=== PATIENT | female | born 1950 | race Caucasian/White ===

== ENCOUNTER 2023-03-20 07:16 | Outpatient (OUT) | payer MEDICARE, SELFPAY ==
[2023-03-20 08:26] LABS: Chol HDL Ratio 3.1; Cholesterol 220 mg/dL (<=200); HDL Cholesterol 71 mg/dL (40-60); Triglycerides 69 mg/dL (<=150); VLDL CHOLESTEROL 13.8 mg/dL
== END 2023-03-20 07:17 | disposition home or self-care (01) ==
LOC: LAB 07:21
PROVIDERS: PCP Family Medicine
DX: Z00.00 Encounter for general adult medical examination without abnormal findings (principal); R53.83 Other fatigue; G47.9 Sleep disorder, unspecified
CPT/HCPCS: 36415; 80061; 82607

== ENCOUNTER 2024-05-25 20:22 | Observation (INO) | payer MEDICARE, SELFPAY ==
[2024-05-25] VITALS (9 sets, daily range): BP systolic 116–166; BP diastolic 63–90; PULSE 71–126; TEMP 36.6–36.7; O2SAT 93–95; BMI 24.0; BMI 25.3
--- NOTE | 2024-05-25 20:38 | ECG_ITS ---
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
--- NOTE | 2024-05-25 20:47 | XR_ITS ---
The [address] [address] Patient Name: ZE LLOYD MRN: [id number] date: 1950 Sex: F Assigned Patient Location: ER Current Patient Location: ER Accession/Order Number: [id number] Exam Date: 05/25/2024 20:55 Report Date: 05/25/2024 21:40 At the request of: YULIA STRANGE Procedure: XR chest 1V EXAM: XR chest 1V REASON FOR EXAM: Female, 73 years, tachycardia. TECHNIQUE: A single AP view of the chest is performed. COMPARISON: None. FINDINGS: Cardiac monitoring leads overlie the chest. There is minimal left basilar atelectasis. Normal pleura. Normal size heart. Normal mediastinum and char. Normal visualized pulmonary arteries. Normal visualized aortic arch and descending thoracic aorta. Normal visualized thoracic spine. Normal visualized ribs, clavicles, and shoulders. There is no demonstrated abnormality of the visualized soft tissue structures of the upper abdomen. XR/XR chest 1V IMPRESSION: Minimal left basilar atelectasis. No additional acute abnormality. Electronically authenticated by: PATRICE JAIME Date: 05/25/2024 21:40
--- NOTE | 2024-05-25 20:48 | ED_ITS ---
HPI - Arrhythmia/Palpitations General Chief Complaint: Arrhythmia/Palpitations Stated Complaint: Palpitation Time Seen by Provider: 05/25/24 20:34 Source: patient Mode of arrival: walk-in Limitations: no limitations History of Present Illness HPI narrative: hour onset of heart flutter in her chest. No chest pain, dyspnea, nausea or light headiness. Past history of HTN Related Data Home Medications ?Medication ?Instructions ?Recorded ?Confirmed aspirin 81 mg tablet,delayed 81 mg PO DAILY 05/25/24 05/25/24 release (Adult Low Dose Aspirin) carvedilol 6.25 mg tablet 6.25 mg PO Q12H 05/25/24 05/25/24 Allergies Allergy/AdvReac Type Severity Reaction Status Date / Time No Known Drug Allergies Allergy Verified 05/25/24 20:37 Review of Systems ROS Status of ROS 10 or more systems reviewed and unremark able except as noted in history and below [facility] Medical History (Updated 05/25/24 @ 22:08 by Jerrod Stoner MD) Osteoporosis ?M81.0 - Age-related osteoporosis without current pathological fracture (ICD- 10) Hypertension ?I10 - Essential (primary) hypertension (ICD-10) Exam Constitutional Vital Signs, click to edit/add: Last Vital Signs Temp 97.8 F 05/25/24 20:32 Pulse 85 05/25/24 21:45 Resp 17 05/25/24 21:45 BP 116/73 05/25/24 21:45 Pulse Ox 94 L 05/25/24 21:45 O2 Del Method Room Air 05/25/24 20:32 Common normals: no apparent distress, average body habitus, oriented x3, no limitations, healthy appearing, alert and well nourished [facility] Common normals: normocephalic and head/scalp atraumatic Eye Common normals: PERRL and EOMs intact bilaterally Respiratory Common normals: normal respiratory effort, no retractions, no use of accessory muscles and clear to auscultation bilaterally Cardio Common normals: S1 normal heart sound and S2 normal heart sound Rate: tachycardic Rhythm: abnormal rhythm GI Common normals: Normal to inspection, nondistended, normoactive bowel sounds present, soft to palpation and non-tender Extremity Common normals: normal to inspection and full ROM Neuro Common normals: oriented x3, CN's II-XII intact bilaterally and moves all extremities Psych Appearance: grossly normal Course Vital Signs Vital signs: Vital Signs Temperature 97.8 F 05/25/24 20:32 Pulse Rate 126 H 05/25/24 20:32 Respiratory Rate 16 05/25/24 20:32 Blood Pressure 166/88 H 05/25/24 20:32 Pulse Oximetry 95 05/25/24 20:32 Oxygen Delivery Method Room Air 05/25/24 20:32 Temperature 97.8 F 05/25/24 20:32 Pulse Rate 85 05/25/24 21:45 Respiratory Rate 17 05/25/24 21:45 Blood Pressure 116/73 05/25/24 21:45 Pulse Oximetry 94 L 05/25/24 21:45 Oxygen Delivery Method Room Air 05/25/24 20:32 MDM - Arrhythmia/Palpitations MDM Narrative Medical decision making narrative: patient presents with complaint of heart fluttering in her chest. started about an hour [facility]. no associated chest pain, nausea, dyspnea or light headiness. She feels ok except for he heart flutter. Has history of HTN. Heart rate 120s and irregular. Given 10mg bolus of diltiazem and heart rate decreased to mid 80s but remained irregular. she would correct to sinus with PAcs and then back to flutter/fib waves. D-dimer and troponin neg. Discussed with the hospitalist and patient accepted for obs admission Lab Data Labs: Lab Results 05/25/24 Range/Units 20:40 WBC 5.9 (4.0-11.0) 10^3/uL RBC 4.42 (4.20-5.40) 10^6/uL Hgb 13.9 (12.0-16.0) g/dL Hct 41.6 (36.0-48.0) % MCV 94.1 (81.0-99.0) fL MCH 31.4 (26.7-34.0) pg MCHC 33.4 (29.9-35.2) g/dL RDW 12.4 (11.0-15.0) % Plt Count 276 (150-450) 10^3/uL MPV 9.7 (9.5-13.5) fL Neut % (Auto) 46.7 (43.0-75.0) % Lymph % (Auto) 38.7 (20.5-60.0) % [place] % (Auto) 10.0 (1.7-12.0) % Eos % (Auto) 3.9 (0.9-7.0) % Baso % (Auto) 0.5 (0.2-2.0) % Neut # (Auto) 2.8 (1.4-6.5) 10^3/uL Lymph # (Auto) 2.3 (1.2-3.8) 10^3/uL [place] # (Auto) 0.6 (0.3-0.8) 10^3/uL Eos # (Auto) 0.2 (0.0-0.7) 10^3/uL Baso # (Auto) 0.0 (0.0-0.1) 10^3/uL Abs Immat Gran (auto) 0.01 (0.00-0.03) 10^3/uL Imm/Tot Granulo (auto) 0.2 (0.0-0.5) % D-Dimer 0.55 (<=0.59) mg/L FEU Sodium 142 (136-145) mmol/L Potassium 3.6 (3.5-5.1) mmol/L Chloride 107 (98-107) mmol/L Carbon Dioxide 25.0 (21.0-32.0) mmol/L Anion Gap 13.6 BUN 21.0 H (7.0-18.0) mg/dL Creatinine 0.88 (0.55-1.02) mg/dL Est GFR ( Amer) >60 (>=60 mL/min/1.73m^2) Est GFR (Non-Af Amer) >60 (>=60 mL/min/1.73m^2) BUN/Creatinine Ratio 23.9 Glucose 171 H (74-106) mg/dL Calcium 9.1 (8.5-10.1) mg/dL Troponin I High Sens 15.1 (4.0-51.3) pg/mL Discharge Plan Discharge Chief Complaint: Arrhythmia/Palpitations Clinical Impression: Atrial flutter, Atrial fibrillation Patient Disposition: Admitted as Observation Prescriptions / Home Meds: No Action carvedilol 6.25 mg tablet 6.25 mg PO Q12H aspirin [Adult Low Dose Aspirin] 81 mg tablet,delayed release (DR/EC) 81 mg PO DAILY Print Language: Tunisian Referrals: SAMMIE CARBAJAL [Primary Care Provider] - 1 week
[2024-05-25 20:51] LABS: Basophils Percent Auto 0.5 % (0.2-2.0); Eosinophils Absolute Auto 0.2 10^3/uL (0.0-0.7); Eosinophils Percent Auto 3.9 % (0.9-7.0); Hematocrit 41.6 % (36.0-48.0); Hemoglobin 13.9 g/dL (12.0-16.0); Immature Granulocytes Abs Auto 0.01 10^3/uL (0.00-0.03); Immature Granulocytes Pct Auto 0.2 % (0.0-0.5); Lymphocytes Absolute Auto 2.3 10^3/uL (1.2-3.8); Lymphocytes Percent Auto 38.7 % (20.5-60.0); Mean Corpuscular HGB Conc 33.4 g/dL (29.9-35.2); Mean Corpuscular Hemoglobin 31.4 pg (26.7-34.0); Mean Corpuscular Volume 94.1 fL (81.0-99.0); Mean Platelet Volume 9.7 fL (9.5-13.5); Monocytes Absolute Auto 0.6 10^3/uL (0.3-0.8); Neutrophils Absolute Auto 2.8 10^3/uL (1.4-6.5); Neutrophils Percent Auto 46.7 % (43.0-75.0); Platelet Count 276 10^3/uL (150-450); Red Blood Count 4.42 10^6/uL (4.20-5.40); Red Cell Distribution Width 12.4 % (11.0-15.0); White Blood Count 5.9 10^3/uL (4.0-11.0)
[2024-05-25 21:00] LABS: D Dimer 0.55 mg/L FEU (<=0.59)
[2024-05-25 21:05] LABS: Anion Gap 13.6; BUN Creatinine Ratio 23.9; Calcium 9.1 mg/dL (8.5-10.1); Chloride 107 mmol/L (98-107); Estimated GFR (African America >60 (>=60 mL/min/1.73m^2); Estimated GFR (Non-African Ame >60 (>=60 mL/min/1.73m^2); Glucose 171 mg/dL (74-106); Potassium 3.6 mmol/L (3.5-5.1); Sodium 142 mmol/L (136-145); Troponin I High Sensitivity 15.1 pg/mL (4.0-51.3)
[2024-05-25] MEDS: DILTIAZEM HCL 25 MG/5 ML VIAL 10 MG IV (21:13)
--- NOTE | 2024-05-25 21:23 | ECG_ITS ---
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
--- NOTE | 2024-05-25 21:27 | PC.NURSE ---
DR Stoner informed that i did not start drip for this patient because her heart rate below 100bm, and Dr Stoner said complete another 12 lead ekg
--- NOTE | 2024-05-25 23:00 | PC.NURSE ---
patient request to transported upstairs via wheelchair, this patient voices no complaints or needs and shows no signs of distress at time of transfer upstairs to room 202. this patient had 1 personal bag of her belonging but her will be back to bring her phone correctional counselor
[2024-05-25] MEDS: ENOXAPARIN SODIUM 40 MG/0.4 ML SYRINGE SUBQ (23:16)
[2024-05-25] MEDS: CARVEDILOL 6.25 MG TABLET PO (23:17)
[2024-05-26] VITALS (9 sets, daily range): BP systolic 116–126; BP diastolic 72–78; PULSE 58–79; TEMP 36.4–36.6; O2SAT 90–93
[2024-05-26 06:59] LABS: Hematocrit 39.5 % (36.0-48.0); Hemoglobin 12.8 g/dL (12.0-16.0); Mean Corpuscular HGB Conc 32.4 g/dL (29.9-35.2); Mean Corpuscular Hemoglobin 30.9 pg (26.7-34.0); Mean Corpuscular Volume 95.4 fL (81.0-99.0); Mean Platelet Volume 9.6 fL (9.5-13.5); Platelet Count 238 10^3/uL (150-450); Red Blood Count 4.14 10^6/uL (4.20-5.40); Red Cell Distribution Width 12.6 % (11.0-15.0); White Blood Count 4.1 10^3/uL (4.0-11.0)
--- NOTE | 2024-05-26 07:00 | CA_ITS ---
Patient Name: ZE LLOYD MR#: [id number] : 1950 Exam Date: 05/26/2024 Ordering Doctor: ALLAN BLANCHARD ECHOCARDIOGRAM REPORT PROCEDURE: CA ECHO DOPPLER COMPLETE INDICATIONS: New onset a-flutter COMPARISON: None. DESCRIPTION: COMPLETE ECHOCARDIOGRAM Real-time transthoracic echocardiography with 2D, M-mode, spectral and color flow Doppler performed. QUALITY: Technical quality was good. LEFT VENTRICLE: Normal chamber size. Mild concentric left ventricular hypertrophy. Global left ventricular systolic function is normal. LV EF: Visual estimation of left ventricular ejection fraction is 65%. DIASTOLIC: Diastolic function is indeterminate. ATRIAL SEPTUM: LEFT ATRIUM: Moderate dilatation. RIGHT ATRIUM: Normal chamber size. RIGHT VENTRICLE: Normal chamber size. Normal right ventricular systolic function. TRICUSPID VALVE: Normal mobility and thickness. No stenosis with trivial regurgitation. No evidence of pulmonary hypertension. RVSP 25 mmHg MITRAL VALVE: Normal mobility and thickness. No evidence of mitral valve stenosis. Mild mitral annular calcification. Mild mitral regurgitation. AORTIC VALVE: Normal trileaflet appearance. Thickened aortic valve. Normal leaflet mobility. No evidence of aortic valve stenosis. No aortic regurgitation. AORTIC ROOT: Normal diameter and appearance. PULMONIC VALVE: Normal thickness and mobility. No stenosis. Trivial regurgitation. PERICARDIUM: No evidence of pericardial effusion. IVC: Collapses with inspirations. Normal size. PLEURA: CONCLUSION: 1. Mild concentric ventricular hypertrophy. Normal left ventricular systolic function. LVEF is 65%. 2. Normal right ventricular size and systolic function. 3. Mild mitral regurgitation. 4. Moderate left atrial dilatation. 5. Normal right-sided pressures. 6. The patient appears to be in sinus rhythm during the exam. Adult Echocardiography Procedure Report Left Ventricle LVEDD (3.7 - 5.6 cm): 4.40 cm LVESD (2.2 - 4.0 cm): 2.91 cm LVIVS thickness (0.6 - 1.2 cm): 1.07 cm LVPW thickness (0.5 - 1.0 cm): 1.16 cm e': 0.07 m/s E - e': 10.92 LVOT Max Gradient: 2.96 mm[Hg] LVOT Area (cm2): 0.86 m/s Peak Velocity (LVOT): 0.86 m/s Mean Velocity (LVOT): 0.59 m/s LVOT Diameter 1.92 cm Left Ventricular Ejection Fraction: 65 % Left Atrium LA Volume Index (2D A2C): 48.48 ml/m2 Left Atrium Systolic Dimension: 4.17 cm Mitral Valve MV E to A Ratio: 1 Mitral Valve A-Wave Peak Velocity: 0.77 m/s Mitral Valve E-Wave Peak Velocity: 0.77 m/s Right Ventricle RV Internal Diastolic Dimension: 3.32 cm Aorta AO Root Diam: 2.61 cm Ascending Ao Diam: 3.20 cm Aortic Valve AoV Area (Peak Juni): 1.59 cm2, 1.59 cm2 AoV Area (VTI): 1.73 cm2, 1.73 cm2 Peak Velocity(Antegrade Flow): 1.56 m/s Peak Gradient(Antegrade Flow): 9.69 mm[Hg] Mean Velocity(Antegrade Flow): 1.03 m/s Mean Gradient(Antegrade Flow): 4.87 mm[Hg] Velocity Time Integral: 34.39 cm Tricuspid Valve Peak Velocity (Regurgitant Flow): 2.01 m/s, 1.70 m/s, 2.33 m/s Pulmonic Valve Mean Gradient: 2.39 mm[Hg], 2.28 mm[Hg] Mean Velocity: 0.73 m/s, 0.71 m/s Peak Velocity: 0.97 m/s Peak Gradient: 3.75 mm[Hg], 3.75 mm[Hg] Right Atrium Right Atrium Systolic Pressure: 29.53 ml, 29.53 ml Dictated by: Cleve Babcock M.D. on 05/26/2024 at 16:29 Approved by: Cleve Babcock M.D. on 05/26/2024 at 16:32
[2024-05-26 07:19] LABS: Alanine Aminotransferase 17 U/L (14-59); Albumin Globulin Ratio 1.1; Albumin Level 3.2 g/dL (3.4-5.0); Alkaline Phosphatase 60 U/L (46-116); Anion Gap 14.9; Aspartate Amino Transferase 12 U/L (15-37); BUN Creatinine Ratio 19.4; Bilirubin Total 0.9 mg/dL (0.2-1.0); Calcium 8.3 mg/dL (8.5-10.1); Carbon Dioxide 25.1 mmol/L (21.0-32.0); Chloride 111 mmol/L (98-107); Estimated GFR (African America >60 (>=60 mL/min/1.73m^2); Estimated GFR (Non-African Ame >60 (>=60 mL/min/1.73m^2); Globulin 2.8 g/dL; Glucose 105 mg/dL (74-106); Sodium 147 mmol/L (136-145)
[2024-05-26 07:21] LABS: Chol HDL Ratio 3.1; Cholesterol 217 mg/dL (<=200); HDL Cholesterol 70 mg/dL (40-60); Magnesium 2.2 mg/dL (1.8-2.4); Triglycerides 100 mg/dL (<=150)
[2024-05-26 07:24] LABS: Estimated Average Glucose 103 mg/dL; Glycohemoglobin A1C 5.2 % (4.5-6.2)
[2024-05-26 07:30] LABS: Thyroid Stimulating Hormone 2.045 uIU/mL (0.358-3.740)
[2024-05-26 07:33] LABS: Troponin I High Sensitivity 11.5 pg/mL (4.0-51.3)
[2024-05-26 07:50] LABS: Lactate/Lactic Acid 1.1 mmol/L (0.4-2.0)
--- NOTE | 2024-05-26 08:38 | CM.NOTE ---
Rounds made with Dr. Harper, discussed diagnosis with pt and new medication Eliquis. Pt will discharge to home today on Holter Monitor and f/u with PCP and cardiology.
--- NOTE | 2024-05-26 08:48 | P.HP_ITS ---
HPI H&P: HPI History of Present Illness Chief complaint: Palpitation A-Flutter Narrative: Pt presented to the Er with palpitation, in ER was found to be going in and out of atrial flutter. Rate would get up into the 130s. Treated on 1 occasion with Cardizem IV. She converted and then was transferred up to the medical surgical floor. When I saw her up in the medical surgical floor she described the above, intermittent palpitations. No history of atrial fibrillation or flutter in the past. Denied any other complaints in the past for heart related. When she has a fluttering does not have any chest pain or shortness of breath. Opioid HPI Opioid Management Most Recent Pain and Opioid Data: Last Pain Assessment 05/26/24 10:21 Last ORT Total Score 0 05/25/24 22:51 05/25/24 Last ORT Risk Category Low Risk 05/25/24 22:51 05/25/24 Review of Systems ROS Status of ROS 10 or more systems reviewed and unremark able except as noted in history and below PFSH PFSH Medical History (Updated 05/25/24 @ 23:29 by Laina Jara) Tachycardia ?R00.0 - Tachycardia, unspecified (ICD-10) Osteoporosis ?M81.0 - Age-related osteoporosis without current pathological fracture (ICD- 10) Hypertension ?I10 - Essential (primary) hypertension (ICD-10) Surgical History (Updated 05/25/24 @ 23:29 by Laina Jara) H/O abdominal hysterectomy ?Z90.710 - Acquired absence of both cervix and uterus (ICD-10) History of tonsillectomy ?Z90.89 - Acquired absence of other organs (ICD-10) Family History (Updated 05/25/24 @ 23:08 by Laina Jara) Mother Family history of hypertension Grandmother Family history of hypertension Family history of stroke Grandfather Family history of stroke Social History (Updated 05/25/24 @ 23:09 by Laina Jara) Within the past year, how often did you have a drink containing alcohol: monthly or less Smoking status: Never smoker Non-prescribed substance use: denies use Previous occupational history: retired Highest level of school completed/degree received: Master's degree Are you now , , , , never or living with a partner: In a typical week, how many times do you talk on the telephone with family, friends, or neighbors: 3 or more times per week How often do you get together with friends or relatives: 3 or more times per week How often do you attend buddhist or latter day services: 4 or more times per year Little interest or pleasure in doing things: not at all Feeling down, depressed, or hopeless: not at all Feel stressed/tense/nervous/anxious/difficulty sleeping: not at all Life stressors: recent of family or friend Do you think of yourself as: straight/heterosexual Gender Identity: female Meds Home Medications and Allergies Home Medications ?Medication ?Instructions ?Recorded ?Confirmed ?Type denosumab 60 mg/mL subcutaneous 60 mg subcut .twice a year 05/25/24 05/25/24 History syringe (Prolia) apixaban 5 mg tablet (Eliquis) 5 mg PO BID #60 tabs 05/26/24 Rx carvedilol 12.5 mg tablet (Coreg) 12.5 mg PO BID #60 tabs 05/26/24 Rx Allergies Allergy/AdvReac Type Severity Reaction Status Date / Time No Known Drug Allergies Allergy Verified 05/25/24 20:37 Exam Constitutional Vital Signs, click to edit/add: Last Vital Signs Temp 97.9 F 05/26/24 08:10 Pulse 69 05/26/24 08:10 Resp 20 05/26/24 08:10 BP 126/78 05/26/24 08:10 Pulse Ox 90 L 05/26/24 08:10 O2 Del Method Room Air 05/26/24 08:10 Documenting provider has reviewed patient's vital signs: yes Common normals: no apparent distress Lymph Lymphatic: no lymphadenopathy noted Chest Common normals: inspection of chest normal and palpation of chest normal Respiratory Common normals: normal respiratory effort and no retractions Cardio Common normals: regular rate, regular rhythm and no murmurs GI Common normals: Normal to inspection, nondistended, normoactive bowel sounds present and soft to palpation Extremity Common normals: normal to inspection, full ROM and normal capillary refill Results Labs Labs: Short CBC 05/25/24 05/26/24 Range/Units 20:40 06:43 WBC 5.9 4.1 (4.0-11.0) 10^3/uL Hgb 13.9 12.8 (12.0-16.0) g/dL Hct 41.6 39.5 (36.0-48.0) % Plt Count 276 238 (150-450) 10^3/uL BMP 05/25/24 05/26/24 20:40 06:43 Sodium 142 147 H Potassium 3.6 4.0 Chloride 107 111 H Carbon Dioxide 25.0 25.1 BUN 21.0 H 14.0 Creatinine 0.88 0.72 Glucose 171 H 105 Calcium 9.1 8.3 L Liver Function 05/26/24 Range/Units 06:43 Total Bilirubin 0.9 (0.2-1.0) mg/dL AST 12 L (15-37) U/L ALT 17 (14-59) U/L Alkaline Phosphatase 60 (46-116) U/L Albumin 3.2 L (3.4-5.0) g/dL Assessment and Plan Assessment and Plan (1) Atrial fibrillation: (2) Atrial flutter: (3) Tachycardia: (4) Hypertension: Plan Admission findings: Tachycardia secondary to atrial fibrillation and flutter. Atrial fibrillation and flutter-check echocardiogram, doubled her dose of carvedilol. Have her ambulate in the hallway if she is ambulating well without further palpitations after starting the Eliquis she can be discharged to home in improving condition. Medications see list. Follow-up with her PCP within the next week. Mild atelectasis noted on chest [id number] without cough. Mild hyperglycemia likely secondary to the nonfasting state Admission status: Patient placed in observation, she has had no further tachycardia, medically necessary treatment will likely only span 1 midnight. Maintain observational status
--- NOTE | 2024-05-26 08:50 | P.DS_ITS ---
DS: Providers Provider Date of admission: 05/25/24 22:45 Primary care physician: SAMMIE WILLETT Consults: 05/26/24 05:48 Occupational Therapy Eval and Treat Routine Reason for consultation: Only if needed for Rehab Has provider been notified: No Physical Therapy Eval and Treat Routine Reason for consultation: Eval and Treat Has provider been notified: No 05/26/24 07:00 Consult to Cardiology Routine Reason for consultation: New onset A-flutter Has provider been notified: No DS: Diagnosis Discharge Diagnosis (1) Atrial fibrillation: (2) Atrial flutter: Plan Admission findings: Tachycardia secondary to atrial fibrillation and flutter. Atrial fibrillation and flutter-check echocardiogram, doubled her dose of carvedilol. Have her ambulate in the hallway if she is ambulating well without further palpitations after starting the Eliquis she can be discharged to home in improving condition. Medications see list. Follow-up with her PCP within the next week. Mild atelectasis noted on chest a-esu-jhlodpn without cough. Mild hyperglycemia likely secondary to the nonfasting state Admission status: Patient placed in observation, she has had no further tachycardia, medically necessary treatment will likely only span 1 midnight. Maintain observational status DS: Summary Hospital Course Hospital Course: Patient was admitted with palpitations, found to have rapid tachycardia secondary to atrial fibrillation and flutter. She converted to normal sinus rhythm after dose of Cardizem. She has been stable overnight. We did double up her Coreg. Started on Eliquis. Checking on echocardiogram if ejection fraction is normal she can be discharged to home in improving condition. Medications see list. See her PCP within the next week. Time Spent with Patient Time attestation: Total time spent providing and/or coordinating discharge services: Exam Constitutional Vital Signs, click to edit/add: Last Vital Signs Temp 97.9 F 05/26/24 08:10 Pulse 69 05/26/24 08:10 Resp 20 05/26/24 08:10 BP 126/78 05/26/24 08:10 Pulse Ox 90 L 05/26/24 08:10 O2 Del Method Room Air 05/26/24 08:10 Documenting provider has reviewed patient's vital signs: yes Common normals: no apparent distress Lymph Lymphatic: no lymphadenopathy noted Chest Common normals: inspection of chest normal and palpation of chest normal Respiratory Common normals: normal respiratory effort and no retractions Cardio Common normals: regular rate, regular rhythm and no murmurs GI Common normals: Normal to inspection, nondistended, normoactive bowel sounds present and soft to palpation Extremity Common normals: normal to inspection, full ROM and normal capillary refill DS: Data Data Completed and Pending Labs on day of discharge: Labs from last 24 hours 05/26/24 05/25/24 06:43 20:40 WBC 4.1 5.9 RBC 4.14 L 4.42 Hgb 12.8 13.9 Hct 39.5 41.6 MCV 95.4 94.1 MCH 30.9 31.4 MCHC 32.4 33.4 RDW 12.6 12.4 Plt Count 238 276 MPV 9.6 9.7 Neut % (Auto) 46.7 Lymph % (Auto) 38.7 [place] % (Auto) 10.0 Eos % (Auto) 3.9 Baso % (Auto) 0.5 Neut # (Auto) 2.8 Lymph # (Auto) 2.3 [place] # (Auto) 0.6 Eos # (Auto) 0.2 Baso # (Auto) 0.0 Abs Immat Gran (auto) 0.01 Imm/Tot Granulo (auto) 0.2 D-Dimer 0.55 Sodium 147 H 142 Potassium 4.0 3.6 Chloride 111 H 107 Carbon Dioxide 25.1 25.0 Anion Gap 14.9 13.6 BUN 14.0 21.0 H Creatinine 0.72 0.88 Est GFR ( Amer) >60 >60 Est GFR (Non-Af Amer) >60 >60 BUN/Creatinine Ratio 19.4 23.9 Glucose 105 171 H Estimat Average Glucose 103 Hemoglobin A1c 5.2 Lactate 1.1 Calcium 8.3 L 9.1 Magnesium 2.2 Total Bilirubin 0.9 AST 12 L ALT 17 Alkaline Phosphatase 60 Troponin I High Sens 11.5 15.1 NT-Pro-B Natriuret Pep 207.0 Total Protein 6.0 L Albumin 3.2 L Globulin 2.8 Albumin/Globulin Ratio 1.1 Triglycerides 100 Cholesterol 217 H LDL Cholesterol, Calc 127.0 VLDL Cholesterol 20.0 HDL Cholesterol 70 H Cholesterol/HDL Ratio 3.1 TSH 2.045 Thyroxine (T4) 6.30 Discharge Plan Discharge Disposition: Home, Self-Care Discharge Medications: New Eliquis 5 mg tablet 5 mg PO BID Qty: 60 11RF carvedilol [Coreg] 12.5 mg tablet 12.5 mg PO BID Qty: 60 11RF Rx Instructions: must administer with a meal/food Continued Prolia 60 mg/mL syringe 60 mg subcut .twice a year Discontinued carvedilol 6.25 mg tablet 6.25 mg PO Q12H aspirin [Adult Low Dose Aspirin] 81 mg tablet,delayed release (DR/EC) 81 mg PO DAILY Diet: advance to your usual diet Diet Detail: regular Print Language: Montenegrin Patient Instructions: Carvedilol (By mouth), Apixaban (By mouth), A-fib (Atrial Fibrillation) (DC), Blood Thinners (DC) Forms: Portal Instructions Follow Up Appointments: @ 11am with SHANIA Bay (Dr. Willett's office) [phone] Jose A @ 11a with Dr. Lutz ([facility]) [phone] Discharge Date/Time: 05/26/24 10:55
--- NOTE | 2024-05-26 09:47 | CM.NOTE ---
Pt given free 30 day trial card for Eliquis. Pt verbalizes understanding of new medication and reason for taking. Medicare Outpatient Observation Notice also discussed with pt, pt verbalizes understanding and signs paper. Original given to pt and copy placed in pt's chart.
--- NOTE | 2024-05-27 15:54 | CM.DCFOLLOWU ---
Person spoke with:patient How are you feeling?well How is your pain?none Did you understand your discharge instructions?yes Do you have any questions about your discharge instructions?no Were you given any prescriptions at discharge?yes Were you able to get your prescriptions filled?yes Do you understand how to take your medications as ordered?yes Do you have any questions about your follow up appointment and do you plan to keep your follow up appointment? no questions, follow ups reviewed Is there anything else that you would like to discuss?no Questions/Comments/Concerns/Other:none
== END 2024-05-26 10:55 | disposition home or self-care (01) ==
LOC: ER 22:08 → MS 22:49
PROVIDERS: Registered Nurse; Admitting Provider Family Medicine; Emergency Provider Internal Medicine; PCP Family Medicine; Visit Provider Family Medicine
DX: I48.91 Unspecified atrial fibrillation (principal); I48.92 Unspecified atrial flutter; R00.0 Tachycardia, unspecified; I10 Essential (primary) hypertension; J98.11 Atelectasis; R73.9 Hyperglycemia, unspecified
CPT/HCPCS: 36415; 71045; 80048; 80053; 80061; 81001; 83036; 83605; 83735; 83880; 84436; 84443; 84484; 85025; 85027; 85378; 93005; 93246; 93306; 94761; 96372; 96374; 99285; G0378; J1650

== ENCOUNTER 2024-05-28 11:31 | Emergency (ER) | payer MEDICARE, SELFPAY ==
[2024-05-28] VITALS (8 sets, daily range): BP systolic 141–165; BP diastolic 74–88; PULSE 84; O2SAT 95–99; BMI 24.0
--- NOTE | 2024-05-28 12:33 | US_ITS ---
The [address] [address] Patient Name: ZE LLOYD MRN: [id number] date: 1950 Sex: F Assigned Patient Location: ER Current Patient Location: ER Accession/Order Number: [id number] Exam Date: 05/28/2024 12:42 Report Date: 05/28/2024 13:29 At the request of: MADONNA CERNA Procedure: US venous doppler LE LT EXAMINATION: US venous doppler LE LT HISTORY: rule out DVT COMPARISON: No relevant comparison available. FINDINGS: REGION: Left lower extremity THROMBI: None. COMPRESSIBILITY: Normal compressibility. FLOW: Normal waveform and antegrade flow between 5 and 20 cm/s. OTHER: None. US/US venous doppler LE LT IMPRESSION: 1. No deep vein thrombus within the left lower extremity. Electronically authenticated by: HAYDEE ROBERSON Date: 05/28/2024 13:29
--- NOTE | 2024-05-28 13:55 | ED_ITS ---
Documented by User: Emily Vitale 05/28/24 13:59 HPI - Extremity Problem General Chief complaint: Extremity Problem, Nontraumatic Stated complaint: LOWER EXTREMITY PAIN, SWELLING Time Seen by Provider: 05/28/24 12:33 Source: patient Mode of arrival: walk-in Limitations: no limitations History of Present Illness HPI Narrative: 73-year-old female presents here with chief complaint of left upper inner thigh redness. Patient states she was driving today felt a sharp pain to her left inner thigh. She did not notice any redness when she was getting out of bed or on the toilet earlier today. 15 x 17 cm area of erythema noted to the left medial leg. Suspected bug bite or insect sting is noted. Patient is afebrile nontoxic-appearing. She was recently seen in the hospital and has a Holter monitor on. Diagnosed with atrial fibs and flutter at that time. Related Data Home Medications ?Medication ?Instructions ?Recorded ?Confirmed denosumab 60 mg/mL subcutaneous 60 mg subcut .twice a year 05/25/24 05/25/24 syringe (Prolia) Previous Rx's ?Medication ?Instructions ?Recorded apixaban 5 mg tablet (Eliquis) 5 mg PO BID #60 tabs 05/26/24 carvedilol 12.5 mg tablet (Coreg) 12.5 mg PO BID #60 tabs 05/26/24 cephalexin 500 mg capsule 500 mg PO TID 10 days #30 caps 05/28/24 Allergies Allergy/AdvReac Type Severity Reaction Status Date / Time No Known Drug Allergies Allergy Verified 05/28/24 11:52 Review of Systems ROS Narrative All Systems are negative except as noted/marked.All systems reviewed and otherwise negative [facility] Medical History (Updated 05/28/24 @ 13:52 by Emily Vitale) Tachycardia ?R00.0 - Tachycardia, unspecified (ICD-10) Osteoporosis ?M81.0 - Age-related osteoporosis without current pathological fracture (ICD- 10) Hypertension ?I10 - Essential (primary) hypertension (ICD-10) Surgical History (Updated 05/25/24 @ 23:29 by Laina Jara) H/O abdominal hysterectomy ?Z90.710 - Acquired absence of both cervix and uterus (ICD-10) History of tonsillectomy ?Z90.89 - Acquired absence of other organs (ICD-10) Family History (Updated 05/25/24 @ 23:08 by Laina Jara) Mother Family history of hypertension Grandmother Family history of hypertension Family history of stroke Grandfather Family history of stroke Social History (Updated 05/25/24 @ 23:09 by Laina Jara) Within the past year, how often did you have a drink containing alcohol: monthly or less Smoking status: Never smoker Non-prescribed substance use: denies use Previous occupational history: retired Highest level of school completed/degree received: Master's degree Are you now , , , , never or living with a partner: In a typical week, how many times do you talk on the telephone with family, friends, or neighbors: 3 or more times per week How often do you get together with friends or relatives: 3 or more times per week How often do you attend sikhism or worship services: 4 or more times per year Little interest or pleasure in doing things: not at all Feeling down, depressed, or hopeless: not at all Feel stressed/tense/nervous/anxious/difficulty sleeping: not at all Life stressors: recent of family or friend Do you think of yourself as: straight/heterosexual Gender Identity: female Exam Narrative Exam Narrative: All Systems are negative except as noted/marked.All systems reviewed and otherwise negative Nurses note and vital signs reviewed and patient is not hypoxic. General: The patient appears well and in no apparent distress. Patient is resting comfortably on cart. Skin: Warm, dry, no pallor noted. There is a 15 area of erythema redness and itching noted to the left upper inner thigh suspected reaction from insect bite or sting. Head: Normocephalic, atraumatic Eye: Normal conjunctiva, no drainage, EOMI. PERRL Ears, Nose, Mouth, and Throat: oral mucosa is moist. Nares patent. Mouth without vesicles. Ear canals patent. Tm's without Erythema Cardiovascular: Regular Rate and Rhythm Respiratory: Patient is in no distress, no accessory muscle use, lungs are clear to auscultation, no wheezing, rales or rhonchi Musculoskeletal: The patient has no evidence of calf tenderness, no pitting edema, symmetrical pulses noted bilaterally Neurological: A&O x4, normal speech Psychiatric: Cooperative Constitutional Vital Signs, click to edit/add: Last Vital Signs Pulse 84 05/28/24 11:52 Resp 18 05/28/24 11:52 BP 151/86 H 05/28/24 14:01 Pulse Ox 96 05/28/24 14:01 O2 Del Method Room Air 05/28/24 13:30 Course Vital Signs Vital signs: Vital Signs Pulse Rate 84 05/28/24 11:52 Respiratory Rate 18 05/28/24 11:52 Blood Pressure 141/88 05/28/24 11:52 Oxygen Delivery Method Room Air 05/28/24 11:52 Pulse Rate 84 05/28/24 11:52 Respiratory Rate 18 05/28/24 11:52 Blood Pressure 151/86 H 05/28/24 14:01 Pulse Oximetry 96 05/28/24 14:01 Oxygen Delivery Method Room Air 05/28/24 13:30 MDM - Extremity (Nontraumatic) MDM Narrative Medical decision making narrative: 73-year-old female presents here with chief complaint of left upper inner thigh redness. Patient states she was driving today felt a sharp pain to her left inner thigh. She did not notice any redness when she was getting out of bed or on the toilet earlier today. 15 x 17 cm area of erythema noted to the left medial leg. Suspected bug bite or insect sting is noted. Patient is afebrile nontoxic-appearing. She was recently seen in the hospital and has a Holter monitor on. Diagnosed with atrial fibs and flutter at that time. 73-year-old female who presented here with a chief complaint of redness to the upper medial left thigh. Per her history is suspect that she had was a reaction from an insect bite. Medicated here in the ER with Decadron Pepcid Benadryl. She will be covered with Keflex for questionable cellulitis. Ultrasound was performed to rule out DVT and negative. Patient is made aware of results and agrees with plan of care. Medical Records Attestation: I reviewed the patient's medical records. Imaging Data Venous US: Radiologist's impression: ITS Impressions Venous Doppler Study 05/28/24 12:33 IMPRESSION: 1. No deep vein thrombus within the left lower extremity. Electronically authenticated by: HAYDEE ROBERSON Date: 05/28/2024 13:29 Discharge Plan Discharge Chief Complaint: Extremity Problem, Nontraumatic Clinical Impression: Cellulitis, Dermatitis Patient Disposition: Home, Self-Care Time of Disposition Decision: 13:52 Condition: Good Prescriptions / Home Meds: New cephalexin 500 mg capsule 500 mg PO TID 10 Days Qty: 30 0RF No Action Prolia 60 mg/mL syringe 60 mg subcut .twice a year Eliquis 5 mg tablet 5 mg PO BID Qty: 60 11RF carvedilol [Coreg] 12.5 mg tablet 12.5 mg PO BID Qty: 60 11RF Rx Instructions: must administer with a meal/food Print Language: Tamazight Instructions: Cellulitis (ED), Insect Bite or Sting (ED), Dermatitis (ED) Referrals: SAMMIE CARBAJAL [Primary Care Provider] - 1 week Discharge Date/Time: 05/28/24 14:09 Documented by User: Andrae Pichardo MD 05/28/24 14:37 HPI - Extremity Problem General Chief complaint: Extremity Problem, Nontraumatic Stated complaint: LOWER EXTREMITY PAIN, SWELLING Time Seen by Provider: 05/28/24 12:33 Related Data Home Medications ?Medication ?Instructions ?Recorded ?Confirmed denosumab 60 mg/mL subcutaneous 60 mg subcut .twice a year 05/25/24 05/25/24 syringe (Prolia) Previous Rx's ?Medication ?Instructions ?Recorded apixaban 5 mg tablet (Eliquis) 5 mg PO BID #60 tabs 05/26/24 carvedilol 12.5 mg tablet (Coreg) 12.5 mg PO BID #60 tabs 05/26/24 cephalexin 500 mg capsule 500 mg PO TID 10 days #30 caps 05/28/24 Allergies Allergy/AdvReac Type Severity Reaction Status Date / Time No Known Drug Allergies Allergy Verified 05/28/24 11:52 [facility] Medical History (Updated 05/28/24 @ 13:52 by Emily Vitale) Tachycardia ?R00.0 - Tachycardia, unspecified (ICD-10) Osteoporosis ?M81.0 - Age-related osteoporosis without current pathological fracture (ICD- 10) Hypertension ?I10 - Essential (primary) hypertension (ICD-10) Surgical History (Updated 05/25/24 @ 23:29 by Laina Jara) H/O abdominal hysterectomy ?Z90.710 - Acquired absence of both cervix and uterus (ICD-10) History of tonsillectomy ?Z90.89 - Acquired absence of other organs (ICD-10) Family History (Updated 05/25/24 @ 23:08 by Laina Jara) Mother Family history of hypertension Grandmother Family history of hypertension Family history of stroke Grandfather Family history of stroke Social History (Updated 05/25/24 @ 23:09 by Laina Jara) Within the past year, how often did you have a drink containing alcohol: monthly or less Smoking status: Never smoker Non-prescribed substance use: denies use Previous occupational history: retired Highest level of school completed/degree received: Master's degree Are you now , , , , never or living with a partner: In a typical week, how many times do you talk on the telephone with family, friends, or neighbors: 3 or more times per week How often do you get together with friends or relatives: 3 or more times per week How often do you attend sikhism or worship services: 4 or more times per year Little interest or pleasure in doing things: not at all Feeling down, depressed, or hopeless: not at all Feel stressed/tense/nervous/anxious/difficulty sleeping: not at all Life stressors: recent of family or friend Do you think of yourself as: straight/heterosexual Gender Identity: female Exam Constitutional Vital Signs, click to edit/add: Last Vital Signs Pulse 84 05/28/24 11:52 Resp 18 05/28/24 11:52 BP 151/86 H 05/28/24 14:01 Pulse Ox 96 05/28/24 14:01 O2 Del Method Room Air 05/28/24 13:30 Course Vital Signs Vital signs: Vital Signs Pulse Rate 84 05/28/24 11:52 Respiratory Rate 18 05/28/24 11:52 Blood Pressure 141/88 05/28/24 11:52 Oxygen Delivery Method Room Air 05/28/24 11:52 Pulse Rate 84 05/28/24 11:52 Respiratory Rate 18 05/28/24 11:52 Blood Pressure 151/86 H 05/28/24 14:01 Pulse Oximetry 96 05/28/24 14:01 Oxygen Delivery Method Room Air 05/28/24 13:30 MDM - Extremity (Nontraumatic) MDM Narrative Medical decision making narrative: 73-year-old female presents here with chief complaint of left upper inner thigh redness. Patient states she was driving today felt a sharp pain to her left inner thigh. She did not notice any redness when she was getting out of bed or on the toilet earlier today. 15 x 17 cm area of erythema noted to the left medial leg. Suspected bug bite or insect sting is noted. Patient is afebrile nontoxic-appearing. She was recently seen in the hospital and has a Holter monitor on. Diagnosed with atrial fibs and flutter at that time. 73-year-old female who presented here with a chief complaint of redness to the upper medial left thigh. Per her history is suspect that she had was a reaction from an insect bite. Medicated here in the ER with Decadron Pepcid Benadryl. She will be covered with Keflex for questionable cellulitis. Ultrasound was performed to rule out DVT and negative. Patient is made aware of results and agrees with plan of care. I, Dr Pichardo, have reviewed the above progress note and course of action in the ER; agree with the above. I have personally seen and evaluated this patient, gone over history and physical, and discussed disposition and treatment plan with the patient. Imaging Data Venous US: Radiologist's impression: ITS Impressions Venous Doppler Study 05/28/24 12:33 IMPRESSION: 1. No deep vein thrombus within the left lower extremity. Electronically authenticated by: HAYDEE ROBERSON Date: 05/28/2024 13:29 ECG Data Attestation ECG: I personally reviewed and interpreted this ECG as follows: (EKG interpretation. Normal sinus rhythm at 77 beats a minute. Normal axis deviation. No acute ST elevation, no acute ectopy. QTc of 419.) Discharge Plan Discharge Chief Complaint: Extremity Problem, Nontraumatic Clinical Impression: Cellulitis, Dermatitis Patient Disposition: Home, Self-Care Time of Disposition Decision: 13:52 Condition: Good Prescriptions / Home Meds: New cephalexin 500 mg capsule 500 mg PO TID 10 Days Qty: 30 0RF No Action Prolia 60 mg/mL syringe 60 mg subcut .twice a year Eliquis 5 mg tablet 5 mg PO BID Qty: 60 11RF carvedilol [Coreg] 12.5 mg tablet 12.5 mg PO BID Qty: 60 11RF Rx Instructions: must administer with a meal/food Print Language: Tamazight Instructions: Cellulitis (ED), Insect Bite or Sting (ED), Dermatitis (ED) Referrals: SAMMIE CARBAJAL [Primary Care Provider] - 1 week Discharge Date/Time: 05/28/24 14:09
[2024-05-28] MEDS: DIPHENHYDRAMINE HCL 25 MG CAPSULE PO (14:01)
[2024-05-28] MEDS: DEXAMETHASONE SOD PHOS 10 MG/ML VIAL PO (14:02)
[2024-05-28] MEDS: FAMOTIDINE 20 MG TABLET 40 MG PO (14:02)
== END 2024-05-28 14:09 | disposition home or self-care (01) ==
PROVIDERS: Emergency Provider Emergency Medicine; PCP Family Medicine
DX: L03.116 Cellulitis of left lower limb (principal); L30.9 Dermatitis, unspecified; Z90.710 Acquired absence of both cervix and uterus
CPT/HCPCS: 93971; 99284; J1100

== ENCOUNTER 2024-09-14 09:46 | Outpatient (OUT) | payer MEDICARE, SELFPAY ==
[2024-09-14 10:20] LABS: Hematocrit 41.5 % (36.0-48.0); Hemoglobin 13.6 g/dL (12.0-16.0); Mean Corpuscular HGB Conc 32.8 g/dL (29.9-35.2); Mean Corpuscular Hemoglobin 30.6 pg (26.7-34.0); Mean Corpuscular Volume 93.5 fL (81.0-99.0); Mean Platelet Volume 9.6 fL (9.5-13.5); Platelet Count 233 10^3/uL (150-450); Red Blood Count 4.44 10^6/uL (4.20-5.40); Red Cell Distribution Width 12.4 % (11.0-15.0); White Blood Count 3.6 10^3/uL (4.0-11.0)
[2024-09-14 10:44] LABS: BUN Creatinine Ratio 14.7; Calcium 9.1 mg/dL (8.5-10.1); Carbon Dioxide 26.4 mmol/L (21.0-32.0); Chloride 107 mmol/L (98-107); Estimated GFR (African America >60 (>=60 mL/min/1.73m^2); Estimated GFR (Non-African Ame >60 (>=60 mL/min/1.73m^2); Glucose 118 mg/dL (74-106); Potassium 4.4 mmol/L (3.5-5.1); Sodium 140 mmol/L (136-145)
[2024-09-14 11:07] LABS: Monocytes Absolute Manual 0.57 10^3/uL (0.30-0.80); Segmented Neut Absolute Manual 1.22 10^3/uL (1.4-6.5)
== END 2024-09-14 09:47 | disposition home or self-care (01) ==
LOC: LAB 09:48
PROVIDERS: PCP Family Medicine; Visit Provider Internal Medicine Cardiovascular Disease
DX: Z01.812 Encounter for preprocedural laboratory examination (principal); Z01.818 Encounter for other preprocedural examination
CPT/HCPCS: 36415; 80048; 85007; 85027

== ENCOUNTER 2025-02-23 12:34 | Emergency (ER) | payer MEDICARE, SELFPAY ==
--- OUTSIDE RECORDS SUMMARY | 2025-02-14 10:00 | XMS_ITS | Encounter Summary ---
Author Organization [facility] Address [address] [place] [address] Care Team Providers Care Tester Operator Name Role Phone Fletcher Willett MD Primary Care Provider [phone] Fletcher Willett MD Unavailable Reason for Visit * Reason Comments Hypertension Encounter Details Date Type Department Care Team (Late st Contact Info) Description 02/14/2025 10:00 AM EDT [facility] Visit [facility] [place] [facility] 110 [place] [id number] Fletcher Willett MD 112 [facility] 110 [place] [address] Elevated BP without diagnosis of hypertension (Primary Dx); Paroxysmal atrial fibrillation (HCC) Social History Tobacco Use Types Packs/Day Years Used Date Smoking Tobacco: Never Smokeless Tobacco: Never Alcohol Use Standard Drinks/Week Comments Yes 6 (1 standard drink = 0.6 oz pur e alcohol) socially B1300 Health Literacy Answer Date Recor ded How often do you need to hav e someone help you when you read instructions, pamphlets, or other written material from your doctor or pharmacy? Never 02/11/2025 Humiliation, Afraid, Rape, and Kick questionnair e Answer Date Recorded Within the last year, have y ou been afraid of your partner or ex-partner? No 02/11/2025 Within the last year, have y ou been humiliated or emotionally abused in other ways by your partner or ex-partner? No Within the last year, have y ou been kicked, hit, slapped, or otherwise physically hurt by your partner or ex-partner? No 02/11/2025 Within the last year, have y ou been raped or forced to have any kind of sexual activity by your partner or ex-partner? No 02/11/2025 Social Connection and Isolat ion Panel [NHANES] Answer Date Recorded In a typical week, how many times do you talk on the phone with family, friends, or neighbors? More than three times a week 02/11/2025 How often do you get togethe r with friends or relatives? More than three times a week 02/11/2025 How often do you attend chur or tenriism services? More than 4 times per year 02/11/2025 Do you belong to any clubs o r organizations such as rastafari groups, unions, fraternal or athletic groups, or school groups? Yes 02/11/2025 How often do you attend meet ings of the clubs or organizations you belong to? 1 to 4 times per year 02/11/2025 Are you , , di vorced, , never , or living with a partner? 02/11/2025 AUDIT-C Answer Date Recorded Q1: How often do you have a drink containing alcohol? Never 02/11/2025 Q2: How many drinks containi ng alcohol do you have on a typical day when you are drinking? Patient does not drink Q3: How often do you have si x or more drinks on one occasion? Never 02/11/2025 Overall Financial Resource Strain (CARDIA) Answe r Date Recorded How hard is it for you to pa y for the very basics like food, housing, medical care, and heating? Not hard at all 02/11/2025 PHQ-2 Answer Date Recorded Patient Health Questionnaire-2 Score 0 02/14/2025 [facility] Occupat ional Health - Occupational Stress Questionnaire Answer Date Recorded Do you feel stress - tense, restless, nervous, or anxious, or unable to sleep at night because your mind is troubled all the time - these days? To some extent 02/11/2025 Exercise Vital Sign Answer Date Recorde d On average, how many days pe r week do you engage in moderate to strenuous exercise (like a brisk walk)? 3 days 02/11/2025 On average, how many minutes do you engage in exercise at this level? 60 min 02/11/2025 Hunger Vital Sign Answer Date Recorded Within the past 12 months, y ou worried that your food would run out before you got the money to buy more. Never true 02/12/20 25 Within the past 12 months, t he food you bought just didn't last and you didn't have money to get more. Never true 02/11/2025 PRAPARE - Transportation Answer Date Re corded In the past 12 months, has l ack of transportation kept you from medical appointments or from getting medications? No 07/2024 In the past 12 months, has l ack of transportation kept you from meetings, work, or from getting things needed for daily living? No 02/11/2025 Housing Stability Vital Sign Answer Higinio e Recorded In the last 12 months, was t here a time when you were not able to pay the mortgage or rent on time? No 10/27/2023 In the last 12 months, how many places have you lived? 1 10/27/2023 In the last 12 months, was t here a time when you did not have a steady place to sleep or slept in a detention (including now)? No 10/27/2023 Housing Stability Vital Sign Answer Higinio e Recorded In the last 12 months, was t here a time when you were not able to pay the mortgage or rent on time? No 02/11/2025 In the past 12 months, how m any times have you moved where you were living? 0 02/11/2025 At any time in the past 12 m [facility], were you homeless or living in a detention (including now)? No 02/11/2025 Comments Unknown Sex and Gender Information Value Date Recorded Sex Assigned at Female 01/01/2023 11:12 AM EDT Legal Sex Female 6:45 PM EDT Gender Identity Female 01/01/2023 11:12 AM EDT Sexual Orientation Not on file documented as of this encounter Last Filed Vital Signs Vital Sign Reading Time Taken Comments Blood Pressure 104/72 02/14/2025 10:09 AM EDT Pulse 59 02/14/2025 10:09 AM EDT Temperature - - Respiratory Rate - - Oxygen Saturation 96% 02/14/2025 10:09 AM EDT Inhaled Oxygen Concentration - - Weight 66.7 kg (147 lb) 02/14/2025 10:09 AM EDT Height 162.6 cm (5' 4 ) 02/14/2025 10:09 AM EDT Body Mass Index 25.23 02/14/2025 10:09 AM EDT documented in this encounter Functional Status * Over the past 2 weeks, how often have you been bothered by any of the following problems? Question Answer Date of Assessment Author Little interest or pleasure in doing things Not at all 02/14/2025 7:01 AM EDT Celeste Kirkpatrick MA Feeling down, depressed, or hopeless Not at all 02/14/2025 7:01 AM EDT Celeste Kirkpatrick MA Patient Health Questionnaire -2 Score 0 02/14/2025 7:01 AM EDT Celeste Kirkpatrick MA documented as of this encounter Progress Notes * Fletcher Willett MD - 02/14/2025 10:28 AM EDTAssociated Problem(s): Elevated BP without diagnosis of hypertension Our specific goals, for your hypertension, is to keep your blood pressure less than 140/90, and theimportance of weight control. We made recommendations on how to control your blood pressure, and minimize your risk of these copmplications. We also discussed your current barriers to a healthy living and importance of healthy diet and exercise. Prior to your visit today we have reviewed your chart and formed a plan to assist with providing you the best possible care. We reviewed the possible complications of hypertension including, stroke, heart failure and kidney impairment. In addition, we discussed your medications, the importance of taking them as prescribed. DASH diet handouts * Fletcher Willett MD - 02/14/2025 10:16 AM EDTAssociated Problem(s): Atrial fibrillation (HCC) Sees Cardiology and is s/p Ablation and Amiodorone Avoid Caffeine * Fletcher Willett MD - 02/14/2025 10:00 AM EDT Images from the original note were not included. Subjective Patient ID: Mary Kay Dugan is a 74 y.o. female who presents for Hypertension. Pt did have an ablation in september caused her to be in afib, she was put on a med that would stay in her system for 60 days and stopped this on December 21 , reported to have severe side effects but it did stop the afib she is worried about going back into afib and does not want to take medication again Hypertension This is a chronic problem. The current episode started more than 1 year ago. The problem is unchanged. The problem is uncontrolled. Associated symptoms include headaches. Pertinent negatives include no chest pain, palpitations or shortness of breath. There are no compliance problems. Over the past 2 weeks, how often have you been bothered by any of the following problems? Little interest or pleasure in doing things: Not at all Feeling down, depressed, or hopeless: Not at all Patient Health Questionnaire-2 Score: 0 Current Outpatient Medications on File Prior to Visit Medication Sig Dispense Refill amiodarone (Pacerone) 200 MG tablet Take 200 mg by mouth in the morning. Ascorbic Acid (VITAMIN C PO) Take by mouth. Rkfihjy-Sahxkuofb-Axenkkp D (CALCIUM 1200+D3 PO) carvedilol (Coreg) 12.5 MG tablet Take 1/2 tablet twice a day cholecalciferol (D3) 50 MCG (2000 UT) tablet clotrimazole-betamethasone (Lotrisone) cream APPLY TWICE DAILY TO AFFECTED AREA FOR 5 DAYS. MAY REPEAT IN 2 WEEKS AND NEEDED AFTER. denosumab (Prolia) 60 MG/ML solution prefilled syringe Inject 1 mL (60 mg) under the skin See administration instructions 60 mg injection twice a year. Eliquis 5 MG tablet Take 5 mg by mouth in the morning and 5 mg before bedtime. magnesium 500 MG tablet meclizine (Antivert) 25 MG tablet Take 25 mg by mouth 3 (three) times a day as needed for dizziness [place]-3 Fatty Acids (Fish Oil) 1200 MG capsule delayed-release Turmeric (QC Tumeric Complex) 500 MG capsule vitamin E 180 MG (400 UNIT) capsule zinc gluconate 50 MG tablet Take 50 mg by mouth in the morning. [DISCONTINUED] famotidine (Pepcid) 20 MG tablet Take 20 mg by mouth in the morning and 20 mg in theevening. [DISCONTINUED] omeprazole (PriLOSEC) [address] capsule Take 40 mg by mouth in the morning. Take before meals. No current facility-administered medications on file prior to visit. I have reviewed and reconciled the history and medication list with the patient today. Allergies Allergen Reactions Food Anaphylaxis Other Anaphylaxis Social History Tobacco Use Smoking status: Never Smokeless tobacco: Never Vaping Use Vaping status: Never Used Substance Use Topics Alcohol use: Yes Alcohol/week: 6.0 standard drinks of alcohol Types: 3 Glasses of wine, 3 Cans of beer per week Comment: socially Drug use: Never No family history on file. Past Medical History: Diagnosis Date Allergic Allergic rhinitis Hypertension 10/11/2023 Osteoporosis 08/14/2015 Past Surgical History: Procedure Laterality Date ADENOIDECTOMY Childhood ANKLE SURGERY Right 2016 CARDIAC ELECTROPHYSIOLOGY STUDY AND ABLATION 09/22/2024 Persistent Atrial Fibrillation FRACTURE SURGERY 08/15/2015 HYSTERECTOMY TUBAL LIGATION 05/01/1978 Visit Vitals BP 104/72 Pulse 59 Ht 5' 4 Wt 147 lb SpO2 96% BMI 25.23 kg/m?? Smoking Status Never BSA 1.74 m?? Review of Systems Constitutional: Negative for chills, fatigue and fever. Respiratory: Negative for cough, shortness of breath and wheezing. Cardiovascular: Negative for chest pain, palpitations and leg swelling. Gastrointestinal: Positive for anal bleeding. Negative for abdominal pain, constipation, diarrhea, nausea and vomiting. Genitourinary: Negative for hematuria. Skin: Negative for rash. Neurological: Positive for headaches. Objective Physical Exam Constitutional: General: She is not in acute distress. Appearance: Normal appearance. HENT: Head: Normocephalic. Neck: Vascular: No carotid bruit. Cardiovascular: Rate and Rhythm: Normal rate and regular rhythm. Pulmonary: Effort: Pulmonary effort is normal. No respiratory distress. Breath sounds: Normal breath sounds. Neurological: General: No focal deficit present. Mental Status: She is alert and oriented to person, place, and time. Psychiatric: Mood and Affect: Mood normal. Assessment/Plan Problem List Items Addressed This Visit Elevated BP without diagnosis of hypertension - Primary Our specific goals, for your hypertension, is to keep your blood pressure less than 140/90, and theimportance of weight control. We made recommendations on how to control your blood pressure, and minimize your risk of these copmplications. We also discussed your current barriers to a healthy living and importance of healthy diet and exercise. Prior to your visit today we have reviewed your chart and formed a plan to assist with providing you the best possible care. We reviewed the possible complications of hypertension including, stroke, heart failure and kidney impairment. In addition, we discussed your medications, the importance of taking them as prescribed. DASH diet handouts Atrial fibrillation (HCC) Sees Cardiology and is s/p Ablation and Amiodorone Avoid Caffeine No follow-ups on file. documented in this encounter Plan of Treatment Upcoming Encounters Date Type Department Care Team (Late st Contact Info) Description 06/27/2025 9:30 AM EST [facility] [place] [facility] [address] [facility] 110 [place] [address] Fletcher Willett MD [address] [facility] 110 [place] [address] documented as of this encounter Visit Diagnoses Diagnosis Elevated BP without diagnosis of hypertension- Primary Paroxysmal atrial fibrillation (HCC) Atrial fibrillation documented in this encounter Additional Health Concerns Assessment Noted Time PHQ-9 Depression Total Score: 1 06/30/20 24 10:00 AM EST documented as of this encounter Care Teams Tester Operator Relationship Specialty Start Date End Date Fletcher Willett MD [address] [facility] [address] [place] [address] PCP - General Family Medicine 06/02/24 Fletcher Willett MD [address] [facility] [address] [place] [address] PCP - ACO Reach 08/20/24 documented as of this encounter
[2025-02-23 12:37] VITALS: BP 136/67; PULSE 69; TEMP 36.6; O2SAT 98; BMI 24.9
--- OUTSIDE RECORDS SUMMARY | 2025-02-23 12:40 | XMS_ITS | Encounter Summary ---
Author Organization [facility] Address [address] [place] [address] Care Team Providers Care Unix Systems Administrator Name Role Phone Fletcher Willett MD Primary Care Provider [phone] Fletcher Willett MD Unavailable Encounter Details Date Type Department Care Team (Late st Contact Info) Description 06/02/2024 Abstract [facility] [place] [facility] [address] [facility] [address] [place] [address] Unallocated, [facility] Provider, [address] [place], [place] [id number] Social History Tobacco Use Types Packs/Day Years Used Date Smoking Tobacco: Never Smokeless Tobacco: Never Alcohol Use Standard Drinks/Week Comments Yes 6 (1 standard drink = 0.6 oz pur e alcohol) socially Social Connection and Isolat ion Panel [NHANES] Answer Date Recorded In a typical week, how many times do you talk on the phone with family, friends, or neighbors? More than three times a week 10/27/2023 How often do you get togethe r with friends or relatives? More than three times a week 10/27/2023 How often do you attend chur ch or jew services? More than 4 times per year 10/27/2023 Do you belong to any clubs o r organizations such as buddhist groups, unions, fraternal or athletic groups, or school groups? No 10/27/2023 How often do you attend meet ings of the clubs or organizations you belong to? Never 10/27/2023 Are you , , di vorced, , never , or living with a partner? 10/27/2023 AUDIT-C Answer Date Recorded Q1: How often do you have a drink containing alc ohol? 2-4 times a month 10/27/2023 Q2: How many drinks containi ng alcohol do you have on a typical day when you are drinking? 1 or 2 10/27/2023 Q3: How often do you have si x or more drinks on one occasion? Never 10/27/2023 Overall Financial Resource Strain (CARDIA) Answe r Date Recorded How hard is it for you to pa y for the very basics like food, housing, medical care, and heating? Not very hard 10/27/2023 [facility] Occupat ional Health - Occupational Stress Questionnaire Answer Date Recorded Do you feel stress - tense, restless, nervous, or anxious, or unable to sleep at night because your mind is troubled all the time - these days? To some extent 10/27/2023 Exercise Vital Sign Answer Date Recorde d On average, how many days pe r week do you engage in moderate to strenuous exercise (like a brisk walk)? 3 days 10/27/2023 On average, how many minutes do you engage in exercise at this level? 20 min 10/27/2023 Hunger Vital Sign Answer Date Recorded Within the past 12 months, y ou worried that your food would run out before you got the money to buy more. Never true 10/27/19 24 Within the past 12 months, t he food you bought just didn't last and you didn't have money to get more. Never true 10/27/2023 PRAPARE - Transportation Answer Date Re corded In the past 12 months, has l ack of transportation kept you from medical appointments or from getting medications? No 10/12 In the past 12 months, has l ack of transportation kept you from meetings, work, or from getting things needed for daily living? No 10/27/2023 Housing Stability Vital Sign Answer [...] place to sleep or slept in a chcf (including now)? No 10/27/2023 Comments Unknown Sex and Gender Information Value Date Recorded Sex Assigned at Female 01/01/2023 11:12 AM EDT Legal Sex Female 6:45 PM EDT Gender Identity Female 01/01/2023 11:12 AM EDT Sexual Orientation Not on file documented as of this encounter Plan of Treatment Upcoming Encounters Date Type Department Care Team (Late st Contact Info) Description 06/27/2025 9:30 AM EST Office Visit [facility] [place] Gleason [address] [facility] [address] [place] [address] Fletcher Willett MD [address] [place] [place] [address] documented as of this encounter Visit Diagnoses Not on filedocumented in this encounter Care Teams Unix Systems Administrator Relationship Specialty Start Date End Date Fletcher Willett MD [address] [facility] [address] [place] [address] PCP - General Family Medicine 06/02/24 Fletcher Willett MD [address] [place] [address] [place] [address] PCP - ACO Reach 08/20/24 documented as of this encounter
--- OUTSIDE RECORDS SUMMARY | 2025-02-23 12:40 | XMS_ITS | Clinical Summary ---
Author Organization [facility] Address [address] [place] [address] Care Team Providers Care Pleat Taper Name Role Phone Fletcher Willett MD Primary Care Provider [phone] Fletcher Willett MD Unavailable Allergies Active Allergy Reactions Criticality Noted Date Comments Food Anaphylaxis High 1986 Other Anaphylaxis High 1986 Medications Ascorbic Acid (VITAMIN C PO) Take by mouth. Active zinc gluconate 50 MG tablet Take 50 mg by mouth in the morning. Active Turmeric (QC Tumeric Complex) 500 MG capsule Activ e Calcium-Magnesiu m-Vitamin D (CALCIUM 1200+D3 PO) Active cholecalciferol (D3) 50 MCG (2000 UT) tablet Act naga magnesium 500 MG tablet Active [place]-3 Fatty Acids (Fish Oil) 1200 MG capsule delayed-release Acti ve vitamin E 180 MG (400 UNIT) capsule Active meclizine (Antivert) 25 MG tablet Take 25 mg by mouth 3 (three) times a day as needed for dizziness Active Eliquis 5 MG tablet Take 5 mg by mouth in the morning and 5 mg before bedtime. 05/26/20 24 Active denosumab (Prolia) 60 MG/ML solution prefilled syringeIndicatio ns:Age-related osteoporosis without current pathological fracture Inject 1 mL (60 mg) under the skin See administration instructions 60 mg injection twice a year. 06/02/20 24 Active clotrimazole-bet amethasone (Lotrisone) cream APPLY TWICE DAILY TO AFFECTED AREA FOR 5 DAYS. MAY REPEAT IN 2 WEEKS AND NEEDED AFTER. 03/08/20 24 Active amiodarone (Pacerone) 200 MG tablet Take 200 mg by mouth in the morning. 10/27/19 25 Active carvedilol (Coreg) 12.5 MG tablet Take 1/2 tablet twice a day 12/22/19 25 Active famotidine (Pepcid) 20 MG tablet Take 20 mg by mouth in the morning and 20 mg in the evening. 09/23/19 25 025 Discontin ued(Other ) omeprazole (PriLOSEC) [address] capsule Take 40 mg by mouth in the morning. Take before meals. 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 No changes in treatment are suggested at this time. Continue Current meds. Hypercholesteremia 10/28/2023 Assessment & Plan (01/27/2024 9:08 AM EDT): Diet and exercise At this time declines Atorvastatin Assessment & Plan (10/28/2023 9:29 AM EDT): Patient would benefit from Cholesterol lowering agent D/W patient the results of blood work Elevated BP without diagnosis of hypertension Assessment & Plan (02/14/2025 10:28 AM EDT): Our specific goals, for your hypertension, is to keep your blood pressure less than 140/90, and the importance of weight control. We made recommendations on [...] the importance of taking them as prescribed. [email or web address] handouts Assessment & Plan (08/02/2024 9:05 AM EST): Our specific goals, for your hypertension, is to keep your blood pressure less than 140/90, and the importance of weight control. We made recommendations on [...] the importance of taking them as prescribed. [email or web address] handouts Assessment & Plan (01/27/2024 8:58 AM EDT): Our specific goals, for your hypertension, is to keep your blood pressure less than 140/90, and the importance of weight control. We made recommendations on [...] the importance of taking them as prescribed. [email or web address] handouts Assessment & Plan (10/28/2023 9:30 AM EDT): Our specific goals, for your hypertension, is to keep your blood pressure less than 140/90, and the importance of weight control. We made recommendations on [...] taking them as prescribed. DASH diet handouts Palpitations 10/28/2023 Assessment & Plan (10/28/2023 9:33 AM EDT): Reduce Caffeine Will do 72 hour Holter CBC was normal. CMP was unremarkable. Osteopenia 08/14/2015 Resolved Problems Problem Noted Date Diagnosed Date Resolved Date Unspecified atrial fibrillation 05/25/2024 10/04/2024 Overview (06/02/2024): admitted to [facility] Assessment & Plan (08/02/2024 9:12 AM EST): Planning an ablation Avoid Caffeine Watch for bleeding Blood pressure check 10/11/2023 024 Encounters Date Type Department Care Team Description 02/14/2025 10:00 AM EDT Office Visit [facility] [address] [facility] [address] [place] [address] Fletcher Willett MD Elevated BP without diagnosis of hypertension (Primary Dx); Paroxysmal atrial fibrillation (HCC) 02/14/2025 Travel 02/11/2025 Travel from Last 3 Months Immunizations Immunization Administration Dates Next Due Hep B, adult 07/18/2004,11/03/2003,09/21/2003 Family History Relation Name Status Comments Father Mother Social History Tobacco Use Types Packs/Day Years Used Date Smoking Tobacco: Never Smokeless Tobacco: Never Tobacco Cessation:Counseling Given: Not Answered Alcohol Use Standard Drinks/Week Comments Yes 6 [...] How often do you attend chur or scientology services? More than 4 times per year [...] Recorded Patient Health Questionnaire-2 Score 0 02/14/2025 [facility] - Occupational Stress Questionnaire Answer Date Recorded [...] place to sleep or slept in a custodial (including now)? No 10/27/2023 Housing Stability Vital Sign Answer Higinio e Recorded In the last 12 months, was t here a time when you were not able to pay the mortgage or rent on time? No 02/11/2025 In the past 12 months, how m any times have you moved where you were living? 0 02/11/2025 At any time in the past 12 m [facility], were you homeless or living in a custodial (including now)? No 02/11/2025 Comments Unknown Sex and Gender Information Value Date Recorded Sex Assigned at Female 01/01/2023 11:12 AM EDT Legal Sex Female 6:45 PM EDT Gender Identity Female 01/01/2023 11:12 AM EDT Sexual Orientation Not on file Last Filed Vital Signs Vital Sign Reading Time Taken Comments Blood Pressure 104/72 02/14/2025 10:09 AM EDT Pulse 59 02/14/2025 10:09 AM EDT Temperature - - Respiratory Rate 16 10/04/2024 1:29 PM EDT Oxygen Saturation 96% 02/14/2025 10:09 AM EDT Inhaled Oxygen Concentration - - Weight 66.7 kg (147 lb) 02/14/2025 10:09 AM EDT Height 162.6 cm (5' 4 ) 02/14/2025 10:09 AM EDT Body Mass Index 25.23 02/14/2025 10:09 AM EDT Plan of Treatment Upcoming Encounters Date Type Department Care Team ([facility] st Contact Info) Description 06/27/2025 9:30 AM EST Office Visit [facility] [address] [facility] [address] [place] [address] Fletcher Willett MD 112 [facility] 110 [place] [address] Health Maintenance Due Date Last Done Comments CT Colonography 1950 Colonoscopy 1950 Colorectal Cancer Screening 1950 FIT-DNA 1950 FIT 1950 FOBT 1950 Sigmoidoscopy 1950 Pneumococcal Vaccine: 65+ Years (1 of 1 - PCV) 001 Influenza Vaccine (#1) 2025 Mammogram 04/27/2025 04/27/2024 Medicare Annual Wellness (AWV) 06/30/2025 06/30/2024 Insurance MEDICARE [employer] Care Teams Pleat Taper Relationship Specialty Start Date End Date Fletcher Willett MD [address] [address] PCP - General Family Medicine 06/02/24 Fletcher Willett MD [address] [address] PCP - ACO Reach 08/20/24
--- OUTSIDE RECORDS SUMMARY | 2025-02-23 12:40 | XMS_ITS | Encounter Summary ---
Author Organization [facility] Address [address] [place] [address] Care Team Providers Care Production Lapping 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 Name Role Phone Efraín Boyer MD Primary Care Provider [phone] Fletcher Willett MD Primary Care Provider [phone] Fletcher Willett MD Unavailable Encounter Details Date Type Department Care Team (Late Contact Info) Description 04/07/2023 Abstract [facility] [place] [facility]ason [address] [facility] 110 [place] [address] Fletcher Willett MD [address] [facility] 110 [place], [place] [id number] Social History Tobacco Use Types Packs/Day Years Used Date Smoking Tobacco: Never Smokeless Tobacco: Never Alcohol Use Standard Drinks/Week Comments Yes 0 (1 standard drink = 0.6 oz pur e alcohol) socially Comments Unknown Sex and Gender Information Value Date Recorded Sex Assigned at Female 01/01/2023 11:12 AM EDT Legal Sex Female 6:45 PM EDT Gender Identity Female 01/01/2023 11:12 AM EDT Sexual Orientation Not on file documented as of this encounter Plan of Treatment Upcoming Encounters Date Type Department Care Team (Late Contact Info) Description 06/27/2025 9:30 AM EST Office Visit [facility] [place] [facility] [address] [place] [address] [place] [address] Fletcher Willett MD [address] [facility] 110 [place] [address] documented as of this encounter Visit Diagnoses Not on filedocumented in this encounter Care Teams Production Lapping 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 Relationship Specialty Start Date End Date Efraín Boyer MD [address] [place], [place] [id number] PCP - General Family Medicine 01/01/23 06/01/24 Fletcher Willett MD [address] [facility] 110 [place] [address] PCP - General Family Medicine 06/02/24 Fletcher Willett MD [address] [facility] 110 [place] [address] PCP - ACO Reach 08/20/24 documented as of this encounter
--- OUTSIDE RECORDS SUMMARY | 2025-02-23 12:40 | XMS_ITS | Encounter Summary ---
Author Organization [facility] Address [address] [place] [address] Care Team Providers Care Hebrew Teacher Name Role Phone Fletcher Willett MD Primary Care Provider [phone] Fletcher Willett MD Unavailable Encounter Details Date Type Department Care Team (Late Contact Info) Description 10/05/2024 Abstract [facility] [place] [facility] [address] [facility] 110 [place] [address] Fletcher Willett MD 112 [facility] 110 [place], [place] [id number] Social History Tobacco Use Types Packs/Day Years [...] often do you attend chur ch or buddhism services? More than 4 times per year 10/27/2023 Do you belong to any clubs o r organizations such as zoroastrian groups, unions, fraternal or athletic groups, or [...] care, and heating? Not very hard 10/27/2023 PHQ-2 Answer Date Recorded Patient Health Questionnaire-2 Score 0 10/04/2024 [facility] of Occupat ional Health - Occupational [...] money to buy more. Never true 10/27/19 Within the past 12 months, t he [...] place to sleep or slept in a long-term (including now)? No 10/27/2023 Comments Unknown Sex [...] Visit [facility] [place] [facility] [address] [facility] 110 [place] [address] Fletcher Willett MD [address] [facility] 110 [place] [address] documented as of this encounter Visit Diagnoses Not on filedocumented in this encounter Additional Health Concerns Assessment Noted Time PHQ-9 Depression Total Score: 1 06/30/20 24 10:00 AM EST documented as of this encounter Care Teams Hebrew Teacher Relationship Specialty Start Date End Date Fletcher Willett MD [address] [facility] [address] [place] [address] PCP - General Family Medicine 06/02/24 Fletcher Willett MD [address] [facility] [address] [place] [address] PCP - ACO Reach 08/20/24 documented as of this encounter
--- OUTSIDE RECORDS SUMMARY | 2025-02-23 12:40 | XMS_ITS | Encounter Summary ---
Author Organization [facility] Address [address] [place] [address] Care Team Providers Care Animal Shelter Manager Name Role Phone Fletcher Willett MD Primary Care Provider [phone] Fletcher Willett MD Unavailable Encounter Details Date Type Department Care Team (Late st Contact Info) Description 06/02/[address] [facility] [place] [facility] [address] [facility] 110 [place] [address] Unallocated, Noms Provider, [address] [place], [place] [phone] Social History Tobacco Use Types Packs/Day Years [...] often do you attend chur ch or jain services? More than 4 times per year 10/27/2023 Do you belong to any clubs o r organizations such as orthodox groups, unions, fraternal or athletic groups, or [...] care, and heating? Not very hard 10/27/2023 [facility] of Occupat ional Health - Occupational Stress [...] place to sleep or slept in a senior living (including now)? No 10/27/2023 Comments Unknown Sex [...] Visit [facility] [place] [facility] [address] [facility] 110 [place] [address] Fletcher Willett MD [address] [place] [address] [place] [address] documented as of this encounter Visit Diagnoses Not on filedocumented in this encounter Care Teams Animal Shelter Manager Relationship Specialty Start Date End Date Fletcher Willett MD [address] [facility] 110 [place] [address] PCP - General Family Medicine 06/02/24 Fletcher Willett MD [address] [place] [address] [place] [address] PCP - ACO Reach 08/20/24 documented as of this encounter
--- OUTSIDE RECORDS SUMMARY | 2025-02-23 12:40 | XMS_ITS | Encounter Summary ---
Author Organization [facility] Address [address] [place] [address] Care Team Providers Care Export Clerk Name Role Phone Fletcher Willett MD Primary Care Provider [phone] Fletcher Willett MD Unavailable Encounter Details Date Type Department Care Team (Latest Contact Info) Description 02/11/2025 Travel Social History Tobacco Use Types Packs/Day Years [...] 02/11/2025 How often do you attend chur ch or catholic services? More than 4 times per year 02/11/2025 Do you belong to any clubs o r organizations such as mormonism groups, unions, fraternal or athletic groups, or [...] Recorded Patient Health Questionnaire-2 Score 0 10/04/2024 [facility] - Occupational Stress Questionnaire Answer [...] to sleep or slept in a senior care (including now)? No 10/27/2023 Housing Stability Vital Sign Answer Higinio e Recorded In the last 12 months, was t here a time when you were not able to pay the mortgage or rent on time? No 02/11/2025 In the past 12 months, how m any times have you moved where you were living? 0 02/11/2025 At any time in the past 12 m [facility], were you homeless or living in a senior care (including now)? No 02/11/2025 Comments Unknown Sex and Gender Information Value Date Recorded Sex Assigned at Female 01/01/2023 11:12 AM EDT Legal Sex Female 6:45 PM EDT Gender Identity Female 01/01/2023 11:12 AM EDT Sexual Orientation Not on file documented as of this encounter Functional Status * Audit-C Score Answer Date of Assessment Author 0 02/11/2025 2:34 PM EDT Amilcar, Generic * Q1: How often do you have a drink containing alcohol? Answer Date of Assessment Author Never 02/11/2025 2:34 PM EDT Amilcar, Generic * Q2: How many drinks containing alcohol do you have on a typical day when you are drinking? Answer Date of Assessment Author Patient does not drink 02/11/2025 2:34 PM EDT My chart, Generic * Q3: How often do you have six or more drinks on one occasion? Answer Date of Assessment Author Never 02/11/2025 2:34 PM EDT Mychart, Generic documented as of this encounter Plan of Treatment Upcoming Encounters Date Type Department Care Team (Late st Contact Info) Description 06/27/2025 9:30 AM EST Office Visit [facility] [place] [facility] [address] [facility] 110 [place] [address] Fletcher Willett MD [address] [facility] 110 [place] [address] documented as of this encounter Visit Diagnoses Not on filedocumented in this encounter Additional Health Concerns Assessment Noted Time PHQ-9 Depression Total Score: 1 06/30/20 10:00 AM EST documented as of this encounter Care Teams Export Clerk Relationship Specialty Start Date End Date Fletcher Willett MD [address] [facility] 110 [place] [address] PCP - General Family Medicine 06/02/24 Fltecher Willett MD [address] [facility] 110 [place] [address] PCP - ACO Reach 08/20/24 documented as of this encounter
--- OUTSIDE RECORDS SUMMARY | 2025-02-23 12:40 | XMS_ITS | Encounter Summary ---
Author Organization [facility] Address [address] [place] [address] Care Team Providers Care Application Security Specialist Name Role Phone Fletcher Willett MD Primary Care Provider [phone] Fletcher Willett MD Unavailable Encounter Details Date Type Department Care Team (Late st Contact Info) Description 06/02/2024 [facility] [place] [facility] [address] [facility] 110 [place] [address] Unallocated, Noms Provider, [address] [place], [place] [id number] Social History Tobacco Use Types Packs/Day Years [...] often do you attend chur ch or confucianism services? More than 4 times per year 10/27/2023 Do you belong to any clubs o r organizations such as restorationist groups, unions, fraternal or athletic groups, or [...] care, and heating? Not very hard 10/27/2023 [facility] of Occupat ional Health - Occupational Stress [...] place to sleep or slept in a skilled nursing (including now)? No 10/27/2023 Comments Unknown Sex [...] Visit [facility] [place] [facility] [address] [facility] 110 [place] [address] Feltcher Willett MD [address] [place] [address] [place] [address] documented as of this encounter Visit Diagnoses Not on filedocumented in this encounter Care Teams Application Security Specialist Relationship Specialty Start Date End Date Fletcher Willett MD [address] [facility] 110 [place] [address] PCP - General Family Medicine 06/02/24 Fletcher Willett MD [address] [facility] [address] [place] [address] PCP - ACO Reach 08/20/24 documented as of this encounter
--- OUTSIDE RECORDS SUMMARY | 2025-02-23 12:40 | XMS_ITS | Encounter Summary ---
Author Organization [facility] Address [address] [place] [address] Care Team Providers Care Edger Runner Name Role Phone Efraín Boyer MD Primary Care Provider [phone] Fletcher Willett MD Primary Care Provider [phone] Fletcher Willett MD Unavailable Encounter Details Date Type Department Care Team (Late st Contact Info) Description 06/01/2024 Abstract [facility] [place] [facility] [address] [facility] 110 [place] [address] Lay Arriaga, [place] [address] [facility] 110 [place], [place] [phone] Social History Tobacco Use Types Packs/Day Years [...] often do you attend chur ch or rastafari services? More than 4 times per year 10/27/2023 Do you belong to any clubs o r organizations such as presybeterian groups, unions, fraternal or athletic groups, or [...] care, and heating? Not very hard 10/27/2023 [facility] [place] of Occupat ional Health - Occupational Stress [...] in a detention (including now)? No 10/27/2023 Comments Unknown Sex [...] Visit [facility] [place] [facility] [address] [facility] 110 [place] [address] Fletcher Willett MD [address] [facility] [address] [place] [address] documented as of this encounter Visit Diagnoses Not on filedocumented in this encounter Care Teams Edger Runner Relationship Specialty Start Date End Date Efraín Boyer MD [address] [place], [place] [id number] PCP - General Family Medicine 01/01/23 06/01/24 Fletcher Willett MD [address] [facility] 110 [place] [address] PCP - General Family Medicine 06/02/24 Fletcher Willett MD [address] [facility] 110 [place] [address] PCP - ACO Reach 08/20/24 documented as of this encounter
--- OUTSIDE RECORDS SUMMARY | 2025-02-23 12:40 | XMS_ITS | Encounter Summary ---
Author Organization [facility] Address [address] [place] [address] Care Team Providers Care Video Coordinator Name Role Phone Fletcher Willett MD Primary Care Provider [phone] Fletcher Willett MD Unavailable Encounter Details Date Type Department Care Team (Late Contact Info) Description 09/22/2024 Abstract [facility] [place] [facility] [address] [facility] 110 [place] [address] Fletcher Willett MD 112 [facility] 110 [place], [place] [id number] Social History Tobacco Use Types Packs/Day Years [...] often do you attend chur ch or adventism services? More than 4 times per year 10/27/2023 Do you belong to any clubs o r organizations such as lutheran groups, unions, fraternal or athletic groups, or [...] Date Recorded Patient Health Questionnaire-2 Score 0 06/30/2024 [facility] of Occupat ional Health - Occupational Stress [...] place to sleep or slept in a [facility] (including now)? No 10/27/2023 Comments Unknown Sex [...] Visit [facility] [place] [facility] [address] [facility] 110 [place] [address] Fletcher Willett MD [address] [facility] 110 [place] [address] documented as of this encounter Visit Diagnoses Not on filedocumented in this encounter Additional Health Concerns Assessment Noted Time PHQ-9 Depression Total Score: 1 06/30/20 24 10:00 AM EST documented as of this encounter Care Teams Video Coordinator Relationship Specialty Start Date End Date Fletcher Willett MD [address] [facility] 110 [place] [address] PCP - General Family Medicine 06/02/24 Fletcher Willett MD [address] [facility] [address] [place] [address] PCP - ACO Reach 08/20/24 documented as of this encounter
--- OUTSIDE RECORDS SUMMARY | 2025-02-23 12:40 | XMS_ITS | Clinical Summary ---
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 Twice a year 4 Active Eliquis 5 mg tabletIndications :Paroxysmal atrial fibrillation (CMS/HCC) Take 1 tablet (5 mg) by mouth two times daily. Do not start before September 24, 2024. 60 tablet 5 Active carvedilol (Coreg) 6.25 mg tablet Take 3.125 mg by mouth with breakfast and with evening meal. 4 Active amiodarone (Pacerone) 200 mg tabletIndications :Paroxysmal atrial fibrillation (CMS/HCC) Take 1 tablet (200 mg) by mouth in the morning. 90 tablet 1 5 Active Active Problems Problem Noted Date Diagnosed Date Atrial fibrillation 09/22/2024 Assessment & Plan (09/22/2024 8:46 PM EDT): On Eliquis for anticoagulation S/p cardioversion and cardiac ablation Hypomagnesemia 09/22/2024 Assessment & Plan (09/22/2024 8:46 PM EDT): Magnesium sulfate IV 2 g x 1 Will recheck levels with a.m. 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 07/27/2024 Overview (07/27/2024): since 20 years old, episodes more frequent recently Age-related osteoporosis wit hout current pathological fracture 10/28/2023 Elevated BP without diagnosis of hypertension Hypercholesteremia 10/28/2023 Palpitations 10/28/2023 Osteopenia 08/14/2015 Encounters Date Type Department Care Team Description 12/22/2024 Orders Only [facility] [address] [place] [address] Provider, MD Yvette 12/21/2024 12:30 PM EDT Office Visit [facility] [address] [place] [address] Savage Lutz MD Paroxysmal atrial fibrillation (CMS/HCC) (Primary Dx) from Last 3 Months Family History Medical History Relation Name Comments Dementia Father Heart failure Mother Relation Name Status Comments Brother Alive Father Mother Sister Alive Social History Tobacco Use Types Packs/Day Years Used Date Smoking Tobacco: Never Smokeless Tobacco: Never Tobacco Cessation:Counseling Given: Not Answered Comments:vapes Alcohol Use Standard Drinks/Week Comments Yes 0 (1 standard drink = 0.6 oz pur e alcohol) socially [facility] Utilities Answer Date Recorded In the past 12 months has th e electric, gas, oil, or water [employer] threatened to shut off services in your home? No 09/22/2024 Humiliation, Afraid, Rape, and Kick questionnair e Answer Date Recorded Within the last year, have y ou been afraid of your partner or ex-partner? No 09/22/2024 Emotionally Abused Not on file 09/22/2024 Physically Abused Not on file 09/22/2024 Sexually Abused Not on file 09/22/2024 Overall Financial Resource Strain (CARDIA) Answe r Date Recorded How hard is it for you to pa y for the very basics like food, housing, medical care, and heating? Not hard at all 09/22/2024 Transportation Answer Date Recorded In the past 12 months, has l ack of transportation kept you from medical appointments or from getting medications? No 09/22/2024 Lack of Transportation (Non-Medical) Not on file 09/22/2024 Housing Stability Vital Sign Answer Higinio e Recorded In the last 12 months, was t here a time when you were not able to pay the mortgage or rent on time? No 09/22/2024 Number of Times Moved in the Last Year Not on fi le 09/22/2024 At any time in the past 12 m [facility], were you homeless or living in a halfway (including now)? No 09/22/2024 Hunger Vital Sign Answer Date Recorded Within the past 12 months, y ou worried that your food would run out before you got the money to buy more. Never true 09/23/19 25 Ran Out of Food in the Last Year Not on file 09/22/2024 Comments No Sex and Gender Information Value Date Recorded Sex Assigned at Not on file Legal Sex Female 10:48 PM EDT Gender Identity Not on file Sexual Orientation Not on file Last Filed Vital Signs Vital Sign Reading Time Taken Comments Blood Pressure 123/69 12/21/2024 12:29 PM EDT Pulse 62 12/21/2024 12:29 PM EDT Temperature 36.2 C (97.2 F) 09/23/2024 11:33 AM EDT Respiratory Rate 14 09/23/2024 11:33 AM EDT Oxygen Saturation 95% 12/21/2024 12:29 PM EDT Inhaled Oxygen Concentration - - Weight 66.7 kg (147 lb) 12/21/2024 12:29 PM EDT Height 162.6 cm (5' 4 ) 12/21/2024 12:29 PM EDT Body Mass Index 25.23 12/21/2024 12:29 PM EDT Plan of Treatment Health Maintenance Due Date Last Done Comments CT Colonography 1950 Colonoscopy 1950 Colorectal Cancer Screening 1950 FIT-DNA 1950 FIT 1950 FOBT 1950 Medicare Annual Wellness (AWV) 1950 Sigmoidoscopy 1950 Depression Screening 1962 Adult Tetanus 1972 Mammogram 1990 Pneumococcal Vaccine: 50+ Ye ars (1 of 1 - PCV) 2000 Zoster Vaccines (1 of 2) 2000 COVID-19 Vaccine (2 - 2023-2 5 season) 2024 04/12/2021 Influenza Vaccine (#1) 2025 Fall Risk Screening 09/23/2025 09/23/2024 HIB Vaccines Aged Out No longer eligi ble based on patient's age to complete this topic HPV Vaccines Aged Out No longer eligi ble based on patient's age to complete this topic IPV Vaccines Aged Out No longer eligi ble based on patient's age to complete this topic Meningococcal B Vaccine Aged Out No l onger eligible based on patient's age to complete this topic Meningococcal Vaccine Aged Out No sebastian brisa eligible based on patient's age to complete this topic Rotavirus Vaccines Aged Out No longer eligible based on patient's age to complete this topic Medical Devices Implanted Type Area Purchasing Manager/Sales Device Identifier Shelf Expiration Date Model / Serial / Lot Screw And Plate Screw Right: Ankle Procedures Procedure Name Priority Date/Time Associated Diagnosis Comments ECG 12-LEAD Routine 12/21/2024 9:52 AM EDT from Last 3 Months Results * ECG 12 lead (12/21/2024 9:52 AM EDT) us Historical Provider ECG ORDERABLES Final Res ult from Last 3 Months Insurance MEDICARE [employer] Advance Directives * Full Code (Latest Code Status on File) Date Activated Date Inactivated Comments 09/22/2024 12:05 PM 09/23/2024 5:24 PM Care Teams Cooler Deliverer Relationship Specialty Start Date End Date Fletcher Willett MD [address] [address] PCP - General Internal Medicine 06/22/24
--- OUTSIDE RECORDS SUMMARY | 2025-02-23 12:40 | XMS_ITS | Encounter Summary ---
Author Organization [facility] Address [address] [place] [address] Care Team Providers Care Overhead Foreman Name Role Phone Fletcher Willett MD Primary Care Provider [phone] Fletcher Willett MD Unavailable Encounter Details Date Type Department Care Team (Late Contact Info) Description 10/05/2024 Abstract [facility] [place] [facility] [address] [facility] 110 [place] [address] Fletcher Willett MD 112 [facility] 110 [place], [place] [id number] Social History Tobacco Use Types Packs/Day Years [...] often do you attend chur ch or christian services? More than 4 times per year [...] Recorded Patient Health Questionnaire-2 Score 0 10/04/2024 [facility] of Occupat ional Health - Occupational Stress [...] place to sleep or slept in a fdc (including now)? No 10/27/2023 Comments Unknown Sex [...] [facility] [place] [facility] [address] [facility] 110 [place] [address] Fletcher Willett MD [address] [facility] 110 [place] [address] documented as of this encounter Visit Diagnoses Not on filedocumented in this encounter Additional Health Concerns Assessment Noted Time PHQ-9 Depression Total Score: 1 06/30/20 24 10:00 AM EST documented as of this encounter Care Teams Overhead Foreman Relationship Specialty Start Date End Date Fletcher Willett MD [address] [facility] 110 [place] [address] PCP - General Family Medicine 06/02/24 Fletcher Willett MD [address] [facility] 110 [place] [address] PCP - ACO Reach 08/20/24 documented as of this encounter
--- OUTSIDE RECORDS SUMMARY | 2025-02-23 12:40 | XMS_ITS | Encounter Summary ---
Author Organization [facility] Address [address] [place] [address] Care Team Providers Care Sales Coordinator Name Role Phone Efraín Boyer MD Primary Care Provider [phone] Fletcher Willett MD Primary Care Provider [phone] Fletcher Willett MD Unavailable Encounter Details Date Type Department Care Team (Late st Contact Info) Description 06/01/2024 Abstract [facility] [place] [facility] [address] [facility] 110 [place] [address] Lay Arriaga, [place] [address] [facility] 110 [place], [place] [id number] Social History Tobacco Use Types Packs/Day Years [...] often do you attend chur ch or episcopalian services? More than 4 times per year 10/27/2023 Do you belong to any clubs o r organizations such as sikh groups, unions, fraternal or athletic groups, or [...] care, and heating? Not very hard 10/27/2023 [facility] [place] of Occupat ional Health - Occupational Stress [...] place to sleep or slept in a prison (including now)? No 10/27/2023 Comments Unknown Sex [...] Visit [facility] [place] [facility] [address] [facility] 110 [place] [address] Fletcher Willett MD [address] [facility] 110 [place] [address] documented as of this encounter Visit Diagnoses Not on filedocumented in this encounter Care Teams Sales Coordinator Relationship Specialty Start Date End Date Efraín Boyer MD [address] [place], [place] [id number] PCP - General Family Medicine 01/01/23 06/01/24 Fletcher Willett MD [address] [facility] 110 [place] [address] PCP - General Family Medicine 06/02/24 Fletcher Willett MD [address] [facility] 110 [place] [address] PCP - ACO Reach 08/20/24 documented as of this encounter
--- OUTSIDE RECORDS SUMMARY | 2025-02-23 12:40 | XMS_ITS | Encounter Summary ---
Author Organization [facility] Address [address] [place] [address] Care Team Providers Care Amusement Or Recreation Card Checker Name Role Phone Efraín Boyer MD Primary Care Provider [phone] Fletcher Willett MD Primary Care Provider [phone] Fletcher Willett MD Unavailable Encounter Details Date Type Department Care Team (Late st Contact Info) Description 04/27/2024 Abstract [facility] [address] [place] 110 [place] [address] Unallocated, Noms Provider, [address] [place] [address] Social History Tobacco Use Types Packs/Day Years [...] any clubs o r organizations such as restorationism groups, unions, fraternal or athletic groups, or [...] care, and heating? Not very hard 10/27/2023 [facility] of Occupat ional Health - Occupational Stress [...] place to sleep or slept in a residential (including now)? No 10/27/2023 Comments Unknown Sex [...] Visit [facility] [place] [facility] [address] [place] [address] [place] [address] Fletcher Willett MD [address] [facility] 110 [place] [address] documented as of this encounter Visit Diagnoses Not on filedocumented in this encounter Care Teams Amusement Or Recreation Card Checker Relationship Specialty Start Date End Date Efraín Boyer MD [address] [place], [place] [id number] PCP - General Family Medicine 01/01/23 06/01/24 Fletcher Willett MD [address] [facility] 110 [place] [address] PCP - General Family Medicine 06/02/24 Fletcher Willett MD [address] [facility] 110 [place] [address] PCP - ACO Reach 08/20/24 documented as of this encounter
--- OUTSIDE RECORDS SUMMARY | 2025-02-23 12:40 | XMS_ITS | Encounter Summary ---
Author Organization [facility] Address [address] [place] [address] Care Team Providers Care Shot Packer Name Role Phone Fletcher Willett MD Primary Care Provider [phone] Fletcher Willett MD Unavailable Encounter Details Date Type Department Care Team (Late st Contact Info) Description 06/02/2024 Abstract [facility] [place] [facility] [address] [facility] 110 [place] [address] Unallocated, Noms Provider, [address] [place], [place] [id number] Social History Tobacco Use Types Packs/Day Years [...] often do you attend chur ch or nondenominational services? More than 4 times per year 10/27/2023 Do you belong to any clubs o r organizations such as hinduism groups, unions, fraternal or athletic groups, or [...] care, and heating? Not very hard 10/27/2023 [facility] of Occupat ional Health - Occupational Stress [...] place to sleep or slept in a retirement (including now)? No 10/27/2023 Comments Unknown Sex [...] [facility] [place] [facility] [address] [facility] 110 [place] [address] Fletcher Willett MD [address] [place] [address] [place] [address] documented as of this encounter Visit Diagnoses Not on filedocumented in this encounter Care Teams Shot Packer Relationship Specialty Start Date End Date Fletcher Willett MD [address] [facility] 110 [place] [address] PCP - General Family Medicine 06/02/24 Fletcher Willett MD [address] [place] [address] [place] [address] PCP - ACO Reach 08/20/24 documented as of this encounter
--- OUTSIDE RECORDS SUMMARY | 2025-02-23 12:40 | XMS_ITS | Encounter Summary ---
Author Organization [facility] Address [address] [place] [address] Care Team Providers Care Stock Fitter Name Role Phone Efraín Boyer MD Primary Care Provider [phone] Fletcher Willett MD Primary Care Provider [phone] Fletcher Willett MD Unavailable Encounter Details Date Type Department Care Team (Late st Contact Info) Description 11/18/2023 Abstract [facility] [place] [facility] [address] [facility] 110 [place] [address] Fletcher Willett MD [address] [facility] 110 [place], [place] [id number] Social History Tobacco Use Types Packs/Day Years [...] often do you attend chur ch or yazdanism services? More than 4 times per year 10/27/2023 Do you belong to any clubs o r organizations such as baptist groups, unions, fraternal or athletic groups, or [...] care, and heating? Not very hard 10/27/2023 [facility] [place] of Occupat ional Health - Occupational Stress [...] Visit [facility] [place] [facility] [address] [facility] 110 [place] [address] Fletcher Willett MD [address] [facility] 110 [place] [address] documented as of this encounter Visit Diagnoses Not on filedocumented in this encounter Care Teams Stock Fitter Relationship Specialty Start Date End Date Efraín Boyer MD [address] [place], [place] [address] PCP - General Family Medicine 01/01/23 06/01/24 Fletcher Willett MD [address] [facility] 110 [place] [address] PCP - General Family Medicine 06/02/24 Fletcher Willett MD [address] [facility] 110 [place] [address] PCP - ACO Reach 08/20/24 documented as of this encounter
--- OUTSIDE RECORDS SUMMARY | 2025-02-23 12:40 | XMS_ITS | Encounter Summary ---
Author Organization [facility] Address [address] [place] [address] Care Team Providers Care Assistant Director Of Admissions Name Role Phone Efraín Boyer MD Primary Care Provider [phone] Fletcher Willett MD Primary Care Provider [phone] Fletcher iWllett MD Unavailable Encounter Details Date Type Department Care Team (Late st Contact Info) Description 10/29/2023 Orders Only [facility] [place] [facility] [address] [place] [address] [place] [address] Unallocated, Noms Provider, [address] [place], [place] [id number] Social History Tobacco Use Types Packs/Day Years [...] often do you attend chur ch or voodoo services? More than 4 times per year 10/27/2023 Do you belong to any clubs o r organizations such as moravian groups, unions, fraternal or athletic groups, or [...] care, and heating? Not very hard 10/27/2023 [facility] of Occupat ional Health - [...] place to sleep or slept in a jail (including now)? No 10/27/2023 Comments Unknown Sex [...] Office Visit [facility] [place] [facility] [address] [place] [place] [address] [place] [address] Fletcher Willett MD 112 [facility] 110 [place] [address] documented as of this encounter Procedures Procedure Name Priority Date/Time Associated Diagnosis Comments ELECTROCARDIOGRAM REPORT Routine 024 9:24 AM EDT documented in this encounter Results * Electrocardiogram Report (10/28/2023 9:24 AM EDT) us Noms Provider Unallocated MD IN CLINIC/BEDSIDE O RDERABLES Final Result documented in this encounter Visit Diagnoses Not on filedocumented in this encounter Care Teams Assistant Director Of Admissions Relationship Specialty Start Date End Date Efraín Boyer MD [address] [place] [address] [address] [place] [address] PCP - General Family Medicine 01/01/23 06/01/24 Fletcher Willett MD [address] [facility] 110 [place] [address] PCP - General Family Medicine 06/02/24 Fletcher Willett MD [address] [place] [facility] 110 [place] [address] PCP - ACO Reach 08/20/24 documented as of this encounter"
--- OUTSIDE RECORDS SUMMARY | 2025-02-23 12:40 | XMS_ITS | Encounter Summary ---
Author Organization [facility] Address [address] [place] [address] Care Team Providers Care Social Sciences Instructor Name Role Phone Fletcher Willett MD Primary Care Provider [phone] Fletcher Willett MD Unavailable Encounter Details Date Type Department Care Team (Late st Contact Info) Description 06/02/2024 Abstract [facility] [place] [facility] [address] [facility] 110 [place] [address] Unallocated, Noms Provider, [address] [place], [place] [id number] Social History Tobacco Use Types Packs/Day Years [...] often do you attend chur ch or samaritan services? More than 4 times per year 10/27/2023 Do you belong to any clubs o r organizations such as alevism groups, unions, fraternal or athletic groups, or [...] care, and heating? Not very hard 10/27/2023 [facility] [place] of Occupat ional Health - Occupational Stress [...] a senior care (including now)? No 10/27/2023 Comments Unknown Sex [...] Visit [facility] [place] [facility] [address] [facility] 110 [place] [address] Fletcher Willett MD [address] [place] [address] [place] [address] documented as of this encounter Visit Diagnoses Not on filedocumented in this encounter Care Teams Social Sciences Instructor Relationship Specialty Start Date End Date Fletcher Willett MD [address] [facility] 110 [place] [address] PCP - General Family Medicine 06/02/24 Fletcher Willett MD [address] [place] [address] [place] [address] PCP - ACO Reach 08/20/24 documented as of this encounter
--- OUTSIDE RECORDS SUMMARY | 2025-02-23 12:40 | XMS_ITS | Encounter Summary ---
Author Organization [facility] Address [address] [place] [address] Care Team Providers Care Painting Trades Worker Name Role Phone Fletcher Willett MD Primary Care Provider [phone] Fletcher Willett MD Unavailable Encounter Details Date Type Department Care Team (Late st Contact Info) Description 06/02/2024 Abstract [facility] [place] [facility] [address] [facility] 110 [place] [address] Unallocated, Noms Provider, [address] [place], [place] [id number] Social History Tobacco Use Types Packs/Day Years [...] any clubs o r organizations such as mandaeism groups, unions, fraternal or athletic groups, or [...] care, and heating? Not very hard 10/27/2023 [facility] [place] of Occupat ional Health - Occupational Stress [...] Visit [facility] [place] [facility] [address] [facility] 110 [place] [address] Fletcher Willett MD [address] [place] [address] [place] [address] documented as of this encounter Visit Diagnoses Not on filedocumented in this encounter Care Teams Painting Trades Worker Relationship Specialty Start Date End Date Fletcher Willett MD [address] [facility] 110 [place] [address] PCP - General Family Medicine 06/02/24 Fletcher Willett MD [address] [place] [address] [place] [address] PCP - ACO Reach 08/20/24 documented as of this encounter
--- OUTSIDE RECORDS SUMMARY | 2025-02-23 12:40 | XMS_ITS | Encounter Summary ---
Author Organization [facility] Address [address] [place] [address] Care Team Providers Care Furniture Fabricator Name Role Phone Fletcher Willett MD Primary Care Provider [phone] Fletcher Willett MD Unavailable Encounter Details Date Type Department Care Team (Latest Contact Info) Description 02/14/2025 Travel Social History Tobacco Use Types Packs/Day [...] often do you attend chur ch or religion services? More than 4 times per year 02/11/2025 Do you belong to any clubs o r organizations such as confucianism groups, unions, fraternal or athletic groups, or [...] Recorded Patient Health Questionnaire-2 Score 0 02/14/2025 [facility] - Occupational Stress Questionnaire Answer Date Recorded [...] in a mcfp (including now)? No 10/27/2023 Housing Stability Vital Sign Answer Higinio e Recorded In the last 12 months, was t here a time when you were not able to pay the mortgage or rent on time? No 02/11/2025 In the past 12 months, how m any times have you moved where you were living? 0 02/11/2025 At any time in the past 12 m [facility], were you homeless or living in a mcfp (including now)? No 02/11/2025 Comments Unknown Sex and Gender Information Value Date Recorded Sex Assigned at Female 01/01/2023 11:12 AM EDT Legal Sex Female 6:45 PM EDT Gender Identity Female 01/01/2023 11:12 AM EDT Sexual Orientation Not on file documented as of this encounter Functional Status * Over the [...] Kirkpatrick MA documented as of this encounter Plan of Treatment Upcoming Encounters Date Type Department Care Team (Itz draper Contact Info) Description 06/27/2025 9:30 AM EST Office Visit [facility] [place] [facility] [address] [facility] 110 [place] [address] Fletcher Willett MD 112 [facility] 110 [place] [address] documented as of this encounter Visit Diagnoses Not on filedocumented in this encounter Additional Health Concerns Assessment Noted Time PHQ-9 Depression Total Score: 1 06/30/20 10:00 AM EST documented as of this encounter Care Teams Furniture Fabricator Relationship Specialty Start Date End Date Fletcher Willett MD 112 [facility] 110 [place] [address] PCP - General Family Medicine 06/02/24 Fletcher Willett MD 112 [facility] [address] [place] [address] PCP - ACO Reach 08/20/24 documented as of this encounter
--- OUTSIDE RECORDS SUMMARY | 2025-02-23 12:40 | XMS_ITS | Encounter Summary ---
Author Organization [facility] Address [address] [place] [address] Care Team Providers Care Senior Catering Sales Manager Name Role Phone Fletcher Willett MD Primary Care Provider [phone] Fletcher Willett MD Unavailable Encounter Details Date Type Department Care Team (Late st Contact Info) Description 06/02/2024 Abstract [facility] [place] [facility] [address] [facility] 110 [place] [address] Unallocated, Noms Provider, [address] [place], [place] [id number] Social History Tobacco Use Types Packs/Day Years [...] any clubs o r organizations such as caodaism groups, unions, fraternal or athletic groups, or [...] very hard 10/27/2023 [facility] [place] of Occupat ional Health - Occupational Stress [...] [facility] [place] [facility] [address] [facility] 110 [place] [address] Fletcher Willett MD [address] [place] [address] [place] [address] documented as of this encounter Visit Diagnoses Not on filedocumented in this encounter Care Teams Senior Catering Sales Manager Relationship Specialty Start Date End Date Fletcher Willett MD [address] [facility] 110 [place] [address] PCP - General Family Medicine 06/02/24 Fletcher Willett MD [address] [place] [address] [place] [address] PCP - ACO Reach 08/20/24 documented as of this encounter
--- OUTSIDE RECORDS SUMMARY | 2025-02-23 12:40 | XMS_ITS | Encounter Summary ---
Author Organization [facility] Address [address] [place] [address] Care Team Providers Care Machine Hoop Maker Helper Name Role Phone Fletcher Willett MD Primary Care Provider [phone] Fletcher Willett MD Unavailable Encounter Details Date Type Department Care Team (Late st Contact Info) Description 06/02/2024 Abstract [facility] [place] [facility] [address] [email or web address] [address] [place] [address] Unallocated, Noms Provider, [address] [place], [place] [id number] Social History Tobacco Use Types Packs/Day Years [...] often do you attend chur ch or sabianist services? More than 4 times per year 10/27/2023 Do you belong to any clubs o r organizations such as judaism groups, unions, fraternal or athletic groups, or [...] Not very hard 10/27/2023 [facility] [place] of Occupat ional Health - Occupational Stress [...] place to sleep or slept in a penitentiary (including now)? No 10/27/2023 Comments Unknown Sex [...] Visit [facility] [place] [facility] [address] [email or web address] 110 [place] [address] Fletcher Willett MD [address] [place] [address] documented as of this encounter Visit Diagnoses Not on filedocumented in this encounter Care Teams Machine Hoop Maker Helper Relationship Specialty Start Date End Date Fletcher Willett MD [address] [facility] 110 [place] [address] PCP - General Family Medicine 06/02/24 Fletcher Willett MD [address] [place] [address] PCP - ACO Reach 08/20/24 documented as of this encounter
--- OUTSIDE RECORDS SUMMARY | 2025-02-23 12:40 | XMS_ITS | Encounter Summary ---
Author Organization [facility] Address [address] [place] [address] Care Team Providers Care Greige Goods Inspector Name Role Phone Efraín Boyer MD Primary Care Provider [phone] Fletcher Willett MD Primary Care Provider [phone] Fletcher Willett MD Unavailable Encounter Details Date Type Department Care Team (Late st Contact Info) Description 05/27/2024 Abstract [facility] [address] [place] [address] [place] [address] Unallocated, Noms Provider, [address] [place], [place] [id number] Social History Tobacco Use Types Packs/Day Years [...] often do you attend chur ch or temple services? More than 4 times per year [...] care, and heating? Not very hard 10/27/2023 [facility] of Occupat ional Health - Occupational [...] place to sleep or slept in a mcc (including now)? No 10/27/2023 Comments Unknown Sex [...] [facility] [place] [facility] [address] [facility] 110 [place] [address] Fletcher Willett MD [address] [facility] 110 [place] [address] documented as of this encounter Visit Diagnoses Not on filedocumented in this encounter Care Teams Greige Goods Inspector Relationship Specialty Start Date End Date Efraín Boyer MD [address] [place], [place] [id number] PCP - General Family Medicine 01/01/23 06/01/24 Fletcher Willett MD [address] [facility] 110 [place] [address] PCP - General Family Medicine 06/02/24 Fletcher Willett MD [address] [facility] 110 [place] [address] PCP - ACO Reach 08/20/24 documented as of this encounter
--- OUTSIDE RECORDS SUMMARY | 2025-02-23 12:40 | XMS_ITS | Encounter Summary ---
Author Organization [facility] Address [address] [place] [address] Care Team Providers Care Leather Goods Ii Assembler Name Role Phone Fletcher Willett MD Primary Care Provider [phone] Fletcher Willett MD Unavailable Encounter Details Date Type Department Care Team (Late Contact Info) Description 06/21/2024 Abstract [facility] [place] [facility] [address] [facility] 110 [place] [address] Fletcher Willett MD [address] [facility] 110 [place], [place] [id number] Social History Tobacco Use Types Packs/Day Years [...] often do you attend chur ch or evangelical services? More than 4 times per year 10/27/2023 Do you belong to any clubs o r organizations such as catholic groups, unions, fraternal or athletic groups, or [...] care, and heating? Not very hard 10/27/2023 [facility] of Occupat ional Health - Occupational Stress [...] place to sleep or slept in a intermediate (including now)? No 10/27/2023 Comments Unknown Sex [...] Visit [facility] [place] Gleason [address] [facility] 110 [place] [address] Fletcher Willett MD [address] [facility] 110 [place] [address] documented as of this encounter Visit Diagnoses Not on filedocumented in this encounter Care Teams Leather Goods Ii Assembler Relationship Specialty Start Date End Date Fletcher Willett MD [address] [facility] 110 [place] [address] PCP - General Family Medicine 06/02/24 Fletcher Willett MD [address] [facility] 110 [place] [address] PCP - ACO Reach 08/20/24 documented as of this encounter
--- OUTSIDE RECORDS SUMMARY | 2025-02-23 12:40 | XMS_ITS | Encounter Summary ---
Author Organization [facility] Address [address] [place] [address] Care Team Providers Care Security Control Room Officer Name Role Phone Efraín Boyer MD Primary Care Provider [phone] Fletcher Willett MD Primary Care Provider [phone] Fletcher Willett MD Unavailable Encounter Details Date Type Department Care Team (Late st Contact Info) Description 01/04/2023 Abstract [facility] [place] [facility] [address] [facility] 150 [place] [address] Kathryn Martinez NP Social History Tobacco Use Types Packs/Day Years [...] 9:30 AM EST Office Visit [facility] [place] [facility] [address] [facility] [place] [place] [phone] Fletcher Willett MD [address] [facility] [address] [place] [address] documented as of this encounter Visit Diagnoses Not on filedocumented in this encounter Care Teams Security Control Room Officer Relationship Specialty Start Date End Date Efraín Boyer MD [address] [place], [place] [id number] PCP - General Family Medicine 01/01/23 06/01/24 Fletcher Willett MD [address] [facility] 110 [place] [address] PCP - General Family Medicine 06/02/24 Fletcher Willett MD 112 [facility] 110 [place] [address] PCP - ACO Reach 08/20/24 documented as of this encounter
--- OUTSIDE RECORDS SUMMARY | 2025-02-23 12:40 | XMS_ITS | Encounter Summary ---
Author Organization [facility] Address [address] [place] [address] Care Team Providers Care Forest Logistics Manager Name Role Phone Efraín Boyer MD Primary Care Provider [phone] Fletcher Willett MD Primary Care Provider [phone] Fletcher Willett MD Unavailable Encounter Details Date Type Department Care Team (Late st Contact Info) Description 11/05/2023 Abstract [facility] [place] [facility] [address] [place] [address] [place] [address] Efraín Boyer MD [address] [place] [address] Social History Tobacco Use Types Packs/Day Years [...] any clubs o r organizations such as restoration groups, unions, fraternal or athletic groups, or [...] care, and heating? Not very hard 10/27/2023 [facility] of Occupat ional Health - Occupational Stress [...] place to sleep or slept in a longterm (including now)? No 10/27/2023 Comments Unknown Sex [...] Gleason [address] [facility] [address] [place] [address] Fletcher Willett MD [address] [facility] 110 [place] [address] documented as of this encounter Visit Diagnoses Not on filedocumented in this encounter Care Teams Forest Logistics Manager Relationship Specialty Start Date End Date Efraín Boyer MD [address] [place], [place] [id number] PCP - General Family Medicine 01/01/23 06/01/24 Fletcher Willett MD [address] [facility] 110 [place] [address] PCP - General Family Medicine 06/02/24 Fletcher Willett MD [address] [facility] [address] [place] [address] PCP - ACO Reach 08/20/24 documented as of this encounter
--- OUTSIDE RECORDS SUMMARY | 2025-02-23 12:40 | XMS_ITS | Encounter Summary ---
Author Organization [facility] Address [address] [place] [address] Care Team Providers Care Senior Lead Software Engineer Name Role Phone Fletcher Willett MD Primary Care Provider [phone] Fletcher Willett MD Unavailable Encounter Details Date Type Department Care Team (Late st Contact Info) Description 06/02/2024 Abstract [facility] [place] [facility] [address] [facility] 110 [place] [address] Unallocated, Noms Provider, [address] [place], [place] [id number] Social History Tobacco Use Types Packs/Day Years [...] often do you attend chur ch or faith services? More than 4 times per year 10/27/2023 Do you belong to any clubs o r organizations such as jain groups, unions, fraternal or athletic groups, or [...] care, and heating? Not very hard 10/27/2023 [facility] [place] of Occupat ional Health - Occupational Stress [...] Visit [facility] [place] [facility] [address] [facility] 110 [place] [address] Fletcher Willett MD [address] [place] [address] documented as of this encounter Visit Diagnoses Not on filedocumented in this encounter Care Teams Senior Lead Software Engineer Relationship Specialty Start Date End Date Fletcher Willett MD [address] [facility] 110 [place] [address] PCP - General Family Medicine 06/02/24 Fletcher Willett MD [address] [place] [address] PCP - ACO Reach 08/20/24 documented as of this encounter
--- OUTSIDE RECORDS SUMMARY | 2025-02-23 12:45 | XMS_ITS | CCD ---
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 Role Phone LORENA, DR BARROS Admitting Unavailable GIRVIN, DR BARROS Attending Unavailable GIRVIN, DR BARROS Consulting Unavailable GIRVIN, DR BARROS Consulting Unavailable GIRVIN, DR BARROS Primary Care Unavailable GIRVIN, DR BARROS Admitting Unavailable GIRVIN, DR BARROS Attending Unavailable BEERMAN, DR NOVOA Admitting Unavailable BEERMAN, DR NOVOA Attending Unavailable GERMANMAN, DR NOVOA Consulting Unavailable MISC, DR TYLER Primary Care Unavailable VAISHALI, DR NOVOA Admitting Unavailable VAISHALI, DR NOVOA Attending Unavailable LORENA, DR BARROS Primary Care Unavailable BEERMAN, DR NOVOA Attending Unavailable VAISHALI, DR NOVOA Admitting Unavailable Griseldaloemkaden, Shelia Primary Care Physician UnavailShelia Munoz Unavailable Unavailable Sammie Carbajal MD Primary Care Provider Sammie Carbajal MD Unavailable SAVAGE LUTZ Attending Unavailable SAVAGE LUTZ Attending Unavailable ARYA MORGAN Referring Unavailable JHONATAN, SAVAGE Referring Unavailable SAVAGE LUTZ Referring Unavailable GEORGE MARISCAL Attending Unavailable SAVAGE LUTZ Attending Unavailable JHONATAN, SAVAGE Referring Unavailable SLAVA KRISHNA Admitting Unavailable LEVINEMICHAEL Attending Unavailable SAVAGE LUTZ Attending Unavailable Sammie Carbajal MD Primary Care Unavailab kendell Hector PA-C, Coreen Thrasher Attending Lenore vailable Sammie Carbajal MD Primary Care Unavailab kendell Hector PA-C, Coreen Thrasher Attending Lenore vailable Sammie Carbajal MD Primary Care Unavailab kendell Hector PA-C, Coreen Thrasher Admitting Lenore vaseydble Krunal MORRIS, Coreen Thrasher Attending Lenore vailable [place] MD, [facility] Unavailab Luba Harper Attending Unav ailrachele Hector PA-C, Coreen Thrasher Attending Lenore deep Carbajal MD, [facility] Unavailab kendell Carbajal MD, [facility] Unavailab kendell Hector PA-C, Coreen Thrasher Attending Lenore deep Carbajal MD, [facility] Unavailab kendell Hector PA-C, Coreen Thrasher Attending Lenore vailable HEMLAY JOY Attending Unavailable SAMMIE CARBAJAL Attending Unavailable HEMLAY JOY Attending Unavailable HEMLAY JOY Attending Unavailable SAMMIE CARBAJAL Attending Unavailable Allergies Allergy Classification Reported Allergen(s) Allergy Type Date of Onset Reaction(s) Facility (13 sources) Food Propensity to adverse reactions 7 Anaphylaxis [facility] (5 sources) Other; Translations: [OTHER] Propensity to adverse reactions 7 Anaphylaxis [facility] Work Phone: (1 source) tree nut, unspecified; Translations: [TREE NUT] Propensity to adverse reactions to drug (disorder) 7 [facility] Repository (2 sources) tree nut, unspecified; Translations: [TREE NUTS] Propensity to adverse reactions to drug (disorder) 5 [facility] Repository (1 source) wagweed; Translations: [wagweed] Propensity to adverse reactions (disorder) [facility] Repository Medications Current Medications Medication Drug Class(es) Dates Sig (Normalized) Sig (Original) amiodarone hydrochloride 200 mg oral tablet (2 sources) Antiarrhythmic Start: 10-26-2024 take 1 tablet by mouth in the morning amiodarone (Pacerone) 200 MG tablet Take 200 mg by mouth in the morning. 10/26/2024 Active apixaban 5 mg oral tablet (13 sources) Factor Xa Inhibitor Start: 05-26-2024 take 1 tablet by mouth in the morning Eliquis 5 MG tablet Take 5 mg by mouth in the morning and 5 mg before bedtime. 05/26/2024 Active Ascorbic Acid (13 sources) Vitamin C Ascorbic Acid (VITAMIN C PO) Take by mouth. Active aspirin 81 mg delayed release oral tablet (2 sources) Platelet Aggregation Inhibitor, Nonsteroidal Anti-inflammatory Drug End: 06-02-2024 take 1 tablet by mouth in the morning aspirin 81 MG EC tablet Take 81 mg by mouth in the morning. 06/02/2024 Discontinued betamethasone 0.5 mg/ml / clotrimazole 10 mg/ml topical cream (8 sources) Azole Antifungal, Corticosteroid Start: 03-08-2024 clotrimazole-beta methasone (Lotrisone) cream APPLY TWICE DAILY TO AFFECTED AREA FOR 5 DAYS. MAY REPEAT IN 2 WEEKS AND NEEDED AFTER. 03/08/2024 Active Lndurdn-Ibowvphze-U itamin D (CALCIUM 1200+D3 PO) (13 sources) Calcium-Magnesiu m -Vitamin D (CALCIUM 1200+D3 PO) Active carvedilol 12.5 mg oral tablet (15 sources) alpha-Adrenergic Nakul, beta-Adrenergic Nakul Start: 12-21-2024 carvedilol (Coreg) 12.5 MG tablet Take 1/2 tablet twice a day 12/21/2024 Active Start: 05-26-2024 End: 10-04-2024 take 1 tablet by mouth in the morning carvedilol (Coreg) 12.5 MG tablet Take 12.5 mg by mouth in the morning and 12.5 mg in the evening. Take with meals. 05/26/2024 10/04/2024 Discontinued (Other) Start: 10-28-2023 End: 06-02-2024 take 1 tablet by mouth in the morning carvedilol (Coreg) 6.25 MG tablet Indications: Elevated BP without diagnosis of hypertension , Palpitations Take 1 tablet (6.25 mg) by mouth in the morning and 1 tablet (6.25 mg) in the evening. Take with meals. 60 tablet 11 10/28/2023 06/02/2024 Discontinued cephalexin 500 mg oral capsule (2 sources) Cephalosporin Antibacterial Start: 05-28-2024 End: 06-06-2024 take 1 capsule by mouth in the morning, then take 1 capsule by mouth in the evening, then take 1 capsule by mouth at bedtime cephalexin (Keflex) 500 MG capsule Take 500 mg by mouth in the morning and 500 mg in the evening and 500 mg before bedtime. 05/28/2024 06/06/2024 Active cholecalciferol 0.05 mg oral tablet (13 sources) Vitamin D cholecalciferol (D3) 50 MCG (1999 UT) tablet Active 1 ml denosumab 60 mg/ml prefilled syringe (15 sources) RANK Ligand Inhibitor Start: 06-02-2024 denosumab (Prolia) 60 MG/ML solution prefilled syringe Indications: Age-related osteoporosis without current pathological fracture Inject 1 mL (60 mg) under the skin See administration instructions 60 mg injection twice a year. 06/02/2024 Active Start: 03-21-2023 End: 06-02-2024 denosumab (Prolia) 60 MG/ML solution prefilled syringe 03/21/2023 06/02/2024 Discontinued (Other) famotidine 20 mg oral tablet (4 sources) Histamine-2 Receptor Antagonist Start: 09-22-2024 End: 02-14-2025 take 1 tablet by mouth in the morning famotidine (Pepcid) 20 MG tablet Take 20 mg by mouth in the morning and 20 mg in the evening. 09/22/2024 02/14/2025 Discontinued (Other) Magnesium (13 sources) magnesium 500 MG tablet Active meclizine hydrochloride 25 mg oral tablet (13 sources) Antiemetic take 1 tablet by mouth three times daily as needed for dizziness meclizine (Antivert) 25 MG tablet Take 25 mg by mouth 3 (three) times a day as needed for dizziness Active Edmonson-3 Fatty Acids (Fish Oil) 1200 MG capsule delayed-release (13 sources) Edmonson-3 Fatty Ac ids (Fish Oil) 1200 MG capsule delayed-release Active omeprazole 40 mg delayed release oral capsule (4 sources) Proton Pump Inhibitor Start: 09-22-2024 End: 02-14-2025 take 1 capsule by mouth before mealtime omeprazole (PriLOSEC) [address] capsule Take 40 mg by mouth in the morning. Take before meals. 09/22/2024 02/14/2025 Discontinued (Other) Turmeric extract (13 sources) Turmeric (QC Tumeric Complex) 500 MG capsule Active vitamin B12 (2 sources) Vitamin B12 End: 06-02-2024 Cyanocobalamin (VITAMIN B-12 PO) Take by mouth. 06/02/2024 Discontinued (Other) vitamin e 180 mg oral capsule (13 sources) vitamin E 180 MG (400 UNIT) capsule Active zinc gluconate 50 mg oral tablet (13 sources) take 1 tablet by mouth in the morning zinc gluconate 50 MG tablet Take 50 mg by mouth in the morning. Active Completed/Discontinued Medications Medication Drug Class(es) Dates Sig (Normalized) Sig (Original) vitamin b injection (2 sources) vitamin b inject ion Problems Active Problems Problem Classification Problem Date Documented Da te Episodic/Chronic Administrative/social admission (2 sources) Patient encounter status; Translations: [Other specified counseling] 06-30-2024 Episodic Allergic reactions (2 sources) Other skin changes due to chronic exposure to nonionizing radiation Onset: 10-29-2021 Episodic Cardiac dysrhythmias (20 sources) Paroxysmal atrial fibrillation; Translations: [Paroxysmal atrial fibrillation] Onset: 05-25-2024 Resolved: 10-04-2024 06-02-2024 Chronic Diabetes mellitus without complication (4 sources) Hyperglycemia, unspecified; Translations: [HYPERGLYCEMIA UNSPECIFIED] Onset: 12-01-2020 Episodic Disorders of lipid metabolism (15 sources) Hypercholesterolemi a; Translations: [Pure hypercholesterolemi a, unspecified] Onset: 10-28-2023 10-28-2023 Chronic Headache; including migraine (5 sources) Migraine with aura; Translations: [Migraine with aura, not intractable, without status migrainosus] Onset: 07-27-2024 10-04-2024 Chronic Melanomas of skin (2 sources) Personal history of malignant melanoma of skin Onset: 10-29-2021 Episodic Osteoporosis (17 sources) Senile osteoporosis; Translations: [Age-related osteoporosis without current pathological fracture] Onset: 10-28-2023 06-02-2024 Chronic Other and unspecified benign neoplasm (2 sources) Hemangioma of skin and subcutaneous tissue Onset: 10-29-2021 Episodic Other and unspecified benign neoplasm (2 sources) Melanocytic nevi of right upper limb, including shoulder Onset: 10-29-2021 Episodic Other circulatory disease (20 sources) Elevated blood-pressure reading without diagnosis of hypertension; Translations: [Elevated blood-pressure reading, without diagnosis of hypertension] Onset: 10-28-2023 10-28-2023 Episodic Other gastrointestinal disorders (4 sources) Diarrhea, unspecified; Translations: [DIARRHEA UNSPECIFIED] Onset: 10-07-2020 Episodic Other nutritional; endocrine; and metabolic disorders (6 sources) Hypomagnesemia; Translations: [Hypomagnesemia] Onset: 09-22-2024 10-04-2024 Chronic Other nutritional; endocrine; and metabolic disorders (1 source) Hypomagnesemia; Translations: [Hypomagnesemia] Onset: 09-22-2024 Chronic Other skin disorders (2 sources) Actinic keratosis Onset: 10-29-2021 Episodic Other skin disorders (2 sources) Other seborrheic keratosis Onset: 10-29-2021 Episodic Residual codes; unclassified (2 sources) Family history of malignant neoplasm of other organs or systems Onset: 10-29-2021 Episodic Skin and subcutaneous tissue infections (2 sources) Cellulitis of left lower limb; Translations: [Cellulitis of left lower limb] 06-02-2024 Episodic Unclassified (1 source) CONTACT W/AND (SUSP) EXPOS COVID-19; Translations: [CONTACT W/AND (SUSP) EXPOS COVID-19] Onset: 11-07-2020 Past or Other Problems Problem Classification Problem Date Documented Date Episodic/Chronic Cardiac dysrhythmias (15 sources) Palpitations; Translations: [Palpitations] Onset: 4 10-28-2023 Episodic Mood disorders (10 sources) Mood disorders Onset: 4 06-30-2024 Other bone disease and musculoskeletal deformities (15 sources) Osteopenia; Translations: [Other specified disorders of bone density and structure, unspecified site] Onset: 6 10-27-2023 Episodic Other screening for suspected conditions (not mental disorders or infectious disease) (7 sources) Prolonged QT interval; Translations: [Abnormal electrocardiogram [ECG] [EKG]] Onset: 5 10-04-2024 Episodic Residual codes; unclassified (7 sources) History of radiofrequency ablation operation for arrhythmia; Translations: [Other specified postprocedural states] Onset: 5 10-04-2024 Episodic Residual codes; unclassified (2 sources) Other specified postprocedural states; Translations: [Other specified postprocedural states] Onset: 5 Episodic Results Test Name Value Interpretation Reference Range Facility Orders Onlyon 12-22-2024 Orders Only [id number] Mary Kay Dugan 1950 F Date Provider Department [facility] 12/22/2024 [id number], HISTORICAL CARD Yoshi Hos Family History Problem Relation Age of Onset Heart failure Mother Dementia Father Family Status - Relation Status Age at Mother Father Sister Alive Brother Alive Normal [facility] Office Visiton 12-21-2024 Follow-up visit [id number] Mary Kay Dugan Tresa 1950 F Date Provider Department Center 12/21/2024 David-SAVAGE LUTZ CARD Yoshi Hos Family History Problem Relation Age of Onset Heart failure Mother Dementia Father Family Status - Relation Status Age at Mother Father Sister Alive Brother Alive Level of Service:[id number] [place] OFFICE/OUTPATIENT ESTABLISHED LOW MDM [address] [facility] Follow-Upon 10-26-2024 Follow-Up [id number] Mary Kay Dugan Tresa 1950 Provider Department Center 10/26/2024 Yann-GEORGE MARISCAL CARD Yoshi Hos Family History Problem Relation Age of Onset Heart failure Mother Dementia Father Family Status - Relation Status Age at Mother Father Sister Alive Brother Alive Level of Service:31242 [place] OFFICE/OUTPATIENT ESTABLISHED MOD MDM 30 MIN Reason for Visit and Comments: Hypertension [537978] Atrial Fibrillation [80] Normal [facility] Telephoneon 10-01-2024 Telephone [id number] Mary Kay Dugan Tresa 1950 Provider Department Center 10/01/2024 1987-JEREMI ESTRADA [facility] [place] HeartVAS Family History Problem Relation Age of Onset No Known Problems Mother No Known Problems Father Family Status - Relation Status Age at Mother Father Reason for Visit and Comments: f/u post ablation [Other] Normal [facility] 30on 09-23-2024 30 The patient is Moderately Stable - Low risk of patient condition declining or worsening The patient's goals for the shift include The clinical goals for the shift include vss Patient discharged home. Normal [facility] BASIC METABOLIC PANELon 09-11 Anion gap [Moles/Vol] 10 mmol/L Normal - [facility] Comment on above: Performed By: #### L [id number] #### [facility] ([facility]) [address] [place] [address] Calcium [Mass/Vol] 9.0 mg/dL Normal 8.6-10.3 [facility] Comment on above: Performed By: #### L [id number] #### [facility] ([facility]) [address] [place] [address] Chloride [Moles/Vol] 103 mmol/L Normal 98-107 [facility] Comment on above: Performed By: #### L [id number] #### [facility] ([facility]) [address] [place] [address] CO2 [Moles/Vol] 26 mmol/L Normal 21-[address] [facility] Comment on above: Performed By: #### L [id number] #### [facility] ([facility]) [address] [place] [address] Creatinine [Mass/Vol] 0.62 mg/dL Normal 0.60-1.20 [facility] Comment on above: Performed By: #### L [id number] #### [facility] ([facility]) [address] [place] [address] GLOMERULAR FILTRATION RATE ML/MIN/1.73 SQ M.PREDICTED 94.0 mL/min/1.73m*2 Normal >60.0 [facility] Comment on above: Result Comment: The [facility]???s estimated glomerular filtration rate (eGFR) will no longer include consideration of race in its calculation. The National Kid[employer] Foundation???s eGFR Task Force developed new recommendations for the estimation of the glomerular filtration rate in the [place] They recommend immediate implementation of the new equation refit without the race variable in all laboratories because the calculation does not include race. In addition to not including race in the calculation and reporting, it included diversity in its development, and has acceptable performance characteristics and potential consequences that do not disproportionately affect any one group of individuals. Performed By: #### L [id number] #### [facility] ([facility]) [address] [place] [address] Glucose [Mass/Vol] 119 mg/dL High 70-100 [facility] Comment on above: Performed By: #### L [id number] #### [facility] ([facility]) [address] [place] [address] Potassium [Moles/Vol] 3.7 mmol/L Normal 3.5-5.1 [facility] Comment on above: Performed By: #### L [id number] #### [facility] [address] [place] [address] Sodium [Moles/Vol] 135 mmol/L Low 136-145 [facility] Comment on above: Performed By: #### L [id number] #### [facility] ([facility]) [address] [place] [address] Urea nitrogen [Mass/Vol] 12 mg/dL Normal 7-25 [facility] Comment on above: Performed By: #### L [id number] #### [facility] ([facility]) [address] [place] [address] UREA NITROGEN/CREATININE (MASS RATIO) IN SER/PLAS 19.[address] [facility] Comment on above: Performed By: #### L [id number] #### [facility] ([facility]) [address] [place] [address] CBCon 09-23-2024 Erythrocyte distribution width (RBC) [Ratio] 12.7 % Normal 11.5-15.0 [facility] Comment on above: Performed By: #### L [id number] #### [facility] ([facility]) [address] [place] [address] ERYTHROCYTE MEAN CORPUSCULAR HEMOGLOBIN CONCENTRATION (G/DL) BY AUTOMATED 32.8 g/dL Normal 32.0-35.0 [facility] Comment on above: Performed By: #### L [id number] #### [facility] ([facility]) [address] [place] [address] Hematocrit (Bld) [Volume fraction] 40.8 % Normal 36.0-45.0 [facility] Comment on above: Performed By: #### L [id number] #### [facility] ([facility]) [address] [place] [address] Hemoglobin (Bld) [Mass/Vol] 13.4 g/dL Normal 12.0-15.0 [facility] Comment on above: Performed By: #### L [id number] #### [facility] ([facility]) [address] [place] [address] MCH (RBC) [Entitic mass] 30.5 pg Normal 27.0-33.0 [facility] Comment on above: Performed By: #### L [id number] #### [facility] ([facility]) [address] [place] [address] MCV (RBC) [Entitic vol] 92.7 fL Normal 82.0-98.0 [facility] Comment on above: Performed By: #### L [id number] #### [facility] ([facility]) [address] [place] [address] PLATELETS (10*3/UL) IN BLOOD AUTOMATED COUNT 229 10*3/uL Normal 150-400 [facility] Comment on above: Performed By: #### L [id number] #### [facility] ([facility]) [address] [place] [address] RBC (Bld) [#/Vol] 4.40 10*6/uL Normal 3.80-5.00 [facility] Comment on above: Performed By: #### L [id number] #### [facility] ([facility]) [address] [place] [address] WBC (Bld) [#/Vol] 11.05 10*3/uL High 4.00-10.60 [facility] Comment on above: Performed By: #### L [id number] #### [facility] ([facility]) [address] [place] [address] MAGNESIUMon 09-23-2024 Magnesium [Mass/Vol] 2.2 mg/dL Normal 1.9-2.7 [facility] Comment on above: Performed By: #### L [id number] ####[facility] ([facility])[address] [place] [address] 30on 09-22-2024 30 The patient is Moderately Stable - Low risk of patient condition declining or worsening The patient's goals for the shift include remove fem stop, no bleeding, comfort, rest The clinical goals for the shift include vss, safety, fem site checks Normal [facility] Anesthesiaon 09-22-2024 Anesthesia [id number] Mary Kay Dugan Tresa 1950 F Date Provider Department [facility] 09/22/2024 ANDI KEEN [facility] Family History Problem Relation Age of Onset No Known Problems Mother No Known Problems Father Family Status - Relation Status Age at Mother Father Normal [facility] CBC WITH AUTO DIFFERENTIALon 09-22-2024 Basophils (Bld) [#/Vol] 0.01 10*3/uL Normal 0.00-0.20 [facility] Comment on above: Performed By: #### L [id number] #### [facility] ([facility]) [address] [place] [address] Basophils/100 WBC (Bld) 0.1 % Normal 0.0-1.0 [facility] Comment on above: Performed By: #### L [id number] #### [facility] ([facility]) [address] [place] [address] Eosinophils (Bld) [#/Vol] 0.00 10*3/uL Normal 0.00-0.50 [facility] Comment on above: Performed By: #### L [id number] #### [facility] ([facility]) [address] [place] [address] Eosinophils/100 WBC (Bld) 0.0 % Normal 0.0-6.0 [facility] Comment on above: Performed By: #### L [id number] #### [facility] ([facility]) [address] [place] [address] Erythrocyte distribution width (RBC) [Ratio] 12.5 % Normal 11.5-15.0 [facility] Comment on above: Performed By: #### L [id number] #### [facility] ([facility]) [address] [place] [address] ERYTHROCYTE MEAN CORPUSCULAR HEMOGLOBIN CONCENTRATION (G/DL) BY AUTOMATED 33.1 g/dL Normal 32.0-35.0 [facility] Comment on above: Performed By: #### L [id number] #### [facility] ([facility]) [address] [place] [address] Hematocrit (Bld) [Volume fraction] 42.3 % Normal 36.0-45.0 [facility] Comment on above: Performed By: #### L [id number] #### [facility] ([facility]) [address] [place] [address] Hemoglobin (Bld) [Mass/Vol] 14.0 g/dL Normal 12.0-15.0 [facility] Comment on above: Performed By: #### L [id number] #### [facility] ([facility]) [address] [place] [address] Immature granulocytes (Bld) [#/Vol] 0.03 10*3/uL Normal 0.00-0.20 [facility] Comment on above: Performed By: #### L [id number] #### [facility] ([facility]) [address] [place] [address] Immature granulocytes/100 WBC (Bld) 0.4 % Normal 0.0-1.0 [facility] Comment on above: Performed By: #### L [id number] #### [facility] ([facility]) [address] [place] [address] Lymphocytes (Bld) [#/Vol] 0.71 10*3/uL Low 1.20-4.00 [facility] Comment on above: Performed By: #### L [id number] #### [facility] ([facility]) [address] [place] [address] Lymphocytes/100 WBC (Bld) 8.4 % Low 20.0-45.0 [facility] Comment on above: Performed By: #### L [id number] #### [facility] ([facility]) [address] [place] [address] MCH (RBC) [Entitic mass] 30.5 pg Normal 27.0-33.0 [facility] Comment on above: Performed By: #### L [id number] #### [facility] ([facility] [address] [place] [address] MCV (RBC) [Entitic vol] 92.2 fL Normal 82.0-98.0 [facility] Comment on above: Performed By: #### L [id number] #### [facility] ([facility]) [address] [place] [address] Monocytes (Bld) [#/Vol] 0.19 10*3/uL Normal 0.10-1.00 [facility] Comment on above: Performed By: #### L [id number] #### [facility] ([facility]) [address] [place] [address] Monocytes/100 WBC (Bld) 2.3 % Low 5.0-12.0 [facility] [facility] Comment on above: Performed By: #### L [id number] #### [facility] ([facility]) [address] [place] [address] Neutrophils (Bld) [#/Vol] 7.49 10*3/uL Normal 1.60-7.60 [facility] Comment on above: Performed By: #### L [id number] #### [facility] ([facility]) [address] [place] [address] Neutrophils/100 WBC (Bld) 88.8 % High 40.0-72.0 [facility] Comment on above: Performed By: #### L [id number] #### [facility] ([facility] [address] [place] [address] NRBC (PER 100 WBCS) BY AUTOMATED COUNT 0.0 % Normal 0 [facility] Comment on above: Performed By: #### L [id number] #### [facility] ([facility]) [address] [place] [address] PLATELETS (10*3/UL) IN BLOOD AUTOMATED COUNT 236 10*3/uL Normal 150-400 [facility] Comment on above: Performed By: #### L [id number] #### [facility] ([facility]) [address] [place] [address] RBC (Bld) [#/Vol] 4.59 10*6/uL Normal 3.80-5.00 [facility] Comment on above: Performed By: #### L [id number] #### [facility] ([facility]) [address] [place] [address] WBC (Bld) [#/Vol] 8.43 10*3/uL Normal 4.00-10.60 [facility] Comment on above: Performed By: #### L [id number] #### [facility] ([facility]) [address] [place] [address] COMPREHENSIVE METABOLIC PANE Itz 09-22-2024 Albumin [Mass/Vol] 4.3 g/dL Normal 3.5-5.7 [facility] Comment on above: Performed By: #### L [id number] ####[facility] ([facility])[address] [place] [address] ALP [Catalytic activity/Vol] 49 U/L Normal 34-104 [facility] Comment on above: Performed By: #### L [id number] ####[facility] ([facility])[address] [place] [address] ALT [Catalytic activity/Vol] 19 U/L Normal 7-52 [facility] Comment on above: Performed By: #### L [id number] ####[facility] ([facility])[address] [place] [address] Anion gap [Moles/Vol] 18 mmol/L Normal 7-20 [facility] Comment on above: Performed By: #### L [id number] ####[facility] ([facility])[address] [place] [address] AST [Catalytic activity/Vol] 36 U/L Normal 13-39 [facility] Comment on above: Performed By: #### L [id number] ####[facility] ([facility])[address] [place] [address] Bilirubin [Mass/Vol] 1.2 mg/dL High 0.3-1.0 [facility] Comment on above: Performed By: #### L [id number] ####[facility] (BEAKER)[address] [place] [address] Calcium [Mass/Vol] 8.9 mg/dL Normal 8.6-10.3 [facility] Comment on above: Performed By: #### L [id number] ####[facility] (BEAKER)[address] [place] [address] Chloride [Moles/Vol] 102 mmol/L Normal 98-107 [facility] Comment on above: Performed By: #### L [id number] ####[facility] (BEAKER)[address] [place] [address] CO2 [Moles/Vol] 22 mmol/L Normal 21-[address] [facility] Comment on above: Performed By: #### L [id number] ####[facility] (BEAKER)[address] [place] [address] Creatinine [Mass/Vol] 0.72 mg/dL Normal 0.60-1.20 [facility] Comment on above: Performed By: #### L [id number] ####[facility] (BEAKER)[address] [place] [address] GLOMERULAR FILTRATION RATE ML/MIN/1.73 SQ M.PREDICTED 88.2 mL/min/1.73m*2 Normal >60.0 [facility] Comment on above: Result Comment: The [facility]???s estimated glomerular filtration rate (eGFR) will no longer include consideration of race in its calculation. The National Kidney Foundation???s eGFR Task Force developed new recommendations for the estimation of the glomerular filtration rate in the [place] They recommend immediate implementation of the new equation refit without the race variable in all laboratories because the calculation does not include race. In addition to not including race in the calculation and reporting, it included diversity in its development, and has acceptable performance characteristics and potential consequences that do not disproportionately affect any one group of individuals. Performed By: #### L [id number] ####[facility] ([facility])[address] [place] [address] Glucose [Mass/Vol] 168 mg/dL High 70-100 [facility] Comment on above: Performed By: #### L [id number] ####[facility] ([facility])[address] [place] [address] Potassium [Moles/Vol] 3.5 mmol/L Normal 3.5-5.1 [facility] Comment on above: Performed By: #### L [id number] ####[facility] ([facility])[address] [place] [address] Protein [Mass/Vol] 6.3 g/dL Normal 6.0-8.3 [facility] Comment on above: Performed By: #### L [id number] ####[facility] ([facility])[address] [place] [address] Sodium [Moles/Vol] 138 mmol/L Normal 136-145 [facility] Comment on above: Performed By: #### L [id number] ####[facility] ([facility])[address] [place] [address] Urea nitrogen [Mass/Vol] 14 mg/dL Normal 7-25 [facility] Comment on above: Performed By: #### L [id number] ####[facility] ([facility])[address] [place] [address] UREA NITROGEN/CREATININE (MASS RATIO) IN SER/PLAS 19.[address] [facility] Comment on above: Performed By: #### L [id number] ####[facility] ([facility])[address] [place] [address] HPon 09-22-2024 HP --- Attestation signed by Savage Lutz MD at 09/23/2024 4:58 PM By using the attestations below, the signing clinician agrees that I have read and verify that the documentation has been personally reviewed by me and ensure that the documentation accurately reflects the encounter. GC: I performed the ivan portion(s) of the service and participated in the management and confirm the resident's documentation. Please note there may be an additional personal documentation from me. H&P reviewed. The patient was examined and there are no changes to the H&P. Plan to proceed with ablation for paroxysmal atrial fibrillation. Procedure was explained to patient at length and in detail. Risks, benefits, and alternatives were discussed. Patient understands these risks and wishes to proceed. Signed, Elis Jane MD PGY-4 Highway Painter Helper Pager: [phone] [facility] MAGNESIUMon 09-22-2024 Magnesium [Mass/Vol] 1.4 mg/dL Low 1.9-2.7 [facility] Comment on above: Performed By: #### L [id number] #### [facility] ([facility]) [address] [place] [address] NURSNOTEon 09-22-2024 NURSNOTE Patient site CDI and soft at 1635, Dr. Jane at bedside assessing patient site and stated patient is ok to be discharged home at this time. RN at bedside while patient finished getting dressed for the second time and R groin site dressing filled with blood. RN placed immediate pressure on R groin site and layed patient down. Patient is asymptomatic and states she feels completely fine . Dr. Jane paged due to bleeding. At 1715, Dr. Jane assessed patient at bedside stating she will be placing admission orders. Patient understand risks of going home and agreed with admission ordered. New dressing placed with quick-clot dressing and tegaderm, as well as Femostop. Dr. Jane ordered Femostop to be decreased by 5 increments every 30 minutes over the course of 2-3 hours Lisset Arriaza RN PACU Normal [facility] NURSNOTE Patient groin site bleeding through dressing while getting dressed for home. Pressure applied, dressing changed and dental laboratory technology teacher called to assess. Femstop applied by nutter up, patient to lay flat for additional hour. May stay overnight if bleeding not controlled. Site soft, no evidence of hematoma. Bleeding has slowed. Dressing changed and quickclot applied with gauze. Patient stable, states she feels fine. IV was discontinued due to patient getting dressed for home. Will replace if admitted. Normal [facility] POCT GLUCOSE METER UNSOLICIT ED RESULTSon 09-22-2024 Glucose [Mass/Vol] 101 mg/dL Normal 70-105 [facility] Comment on above: Order Comment: Waive d Testing in the ED is performed under the ED CLIA certificate #[id number]. Result Comment: virginie ng12 Performed By: #### L [id number] #### [facility] ([facility]) [address] [place] [address] PROTIME-INRon 09-22-2024 INR IN PPP BY COAGULATION ASSAY 1.28 High 0.90-1.10 [facility] Comment on above: Result Comment: ACCC P RECOMMENDED INR FOR WARFARIN THERAPY CONDITION INR PROPHYLAXIS OF VENOUS THROMBOSIS 2-3 (HIGH-RISK SURGERY) TREATMENT OF VENOUS THROMBOSIS 2-3 TREATMENT OF PULMONARY EMBOLISM 2-3 PREVENTION OF SYSTEMIC EMBOLISM: 2-3 ACUTE MYOCARDIAL INFARCTION TISSUE HEART VALVES VALVULAR HEART DISEASE ATRIAL FIBRILLATION RECURRENT SYSTEMIC EMBOLISM MECHANICAL HEART VALVE 2.5-3.5 FROM: ORAL ANTICOAGULANTS. MECHANISM OF ACTION, CLINICAL EFFECTIVENESS, AND OPTIMAL THERAPEUTIC RANGE. CHEST 1995;108:231S-246S. Performed By: #### L [id number] ####[facility] ([employer])[address] [facility] [place] [address] PROTHROMBIN TIME (PT) IN PPP BY COAGULATION ASSAY 15.9 Seconds High 12.3-14.8 [facility] Comment on above: Performed By: #### L [id number] ####[facility] ([employer])[address] [place] [address] INR IN PPP BY COAGULATION ASSAY 1.09 Normal 0.90-1.10 [facility] Comment on above: Result Comment: ACCC P RECOMMENDED INR FOR WARFARIN THERAPY CONDITION INR PROPHYLAXIS OF VENOUS THROMBOSIS 2-3 (HIGH-RISK SURGERY) TREATMENT OF VENOUS THROMBOSIS 2-3 TREATMENT OF PULMONARY EMBOLISM 2-3 PREVENTION OF SYSTEMIC EMBOLISM: 2-3 ACUTE MYOCARDIAL INFARCTION TISSUE HEART VALVES VALVULAR HEART DISEASE ATRIAL FIBRILLATION RECURRENT SYSTEMIC EMBOLISM MECHANICAL HEART VALVE 2.5-3.5 FROM: ORAL ANTICOAGULANTS. MECHANISM OF ACTION, CLINICAL EFFECTIVENESS, AND OPTIMAL THERAPEUTIC RANGE. CHEST 1995;108:231S-246S. Performed By: #### L [id number] #### [facility] ([employer]) [address] [place] [address] PROTHROMBIN TIME (PT) IN PPP BY COAGULATION ASSAY 14.1 Seconds Normal 12.3-14.8 [facility] Comment on above: Performed By: #### L [id number] #### [facility] ([facility]ER) [address] [place] [address] Prep for Procedureon 025 Prep for Procedure [id number] Mary Kay Dugan 1950 F Date Provider Department Center 09/22/20241986-JEREMI ESTRADA [facility] [place] [facility] Family History Problem Relation Age of Onset No Known Problems Mother No Known Problems Father Family Status - Relation Status Age at Mother Father Normal [facility] HPon 09-21-2024 [facility] Electrophysiology Consult Note [place] [facility] Reason for visit: atrial fibrillation 09/21/14 Patient here for H&P prior to afib ablation scheduled tomorrow. Denies chest pain, lightheadedness/syncope , and bleeding on Eliquis. 07/27/24 Patient here for follow up event monitor. She denies chest pain, SOB, palpitations, lightheadedness/syncope , and bleeding on Eliquis. Pt doing well. Eventmonitor placed evealed AF epsiode of 07/02/24. She is tolerating DOAC well HPI: Mary Kay Dugan is a 73 y.o. year old with past medical history of .HLD, palpitations. New patient here to establish care for follow up [facility] for new afib/flutter. She was already on carvedilol, but was also started on Eliquis. Denies bleeding issues so far. Hasn't had palpitations for awhile. Denies chest pain and SOB. Patient was recently seen at [facility] on 05/25/24 for complaints of racing heart beats. She states she took her 's pulse ox and put it on her finger and could see her heart rate bouncing up and down. She was found to be in newly found atrial fibrillation at the hospital. They discharged her home with a 7 day holter monitor which she wore. She felt one episode on the holter monitor but has felt well since. Holter monitor findings: 06/16- revealed episode of atrial fibrillation. Patient was symptomatic, states she felt her heart racing and beating funny PMH: Past Medical History: Diagnosis Date Abnormal ECG Afib (CMS/HCC) Arrhythmia Asthma Atrial fibrillation (CMS/HCC) Hyperlipidemia Hypertension Osteoporosis PSH: Past Surgical History: Procedure Laterality Date ANKLE FRACTURE SURGERY Right HYSTERECTOMY TONSILLECTOMY SH: Social Determinants of Health Tobacco Use: Low Risk (08/02/2024) Received from [facility] Patient History Smoking Tobacco Use: Never Smokeless Tobacco Use: Never Passive Exposure: Not on file Alcohol Use: Not At Risk (10/27/2023) Received from [facility] AUDIT-C Frequency of Alcohol Consumption: 2-4 times a month Average Number of Drinks: 1 or 2 Frequency of Binge Drinking: Never Financial Resource Strain: Low Risk (10/27/2023) Received from [facility] Overall Financial Resource Strain (CARDIA) Difficulty of Paying Living Expenses: Not very hard Food Insecurity: No Food Insecurity (10/27/2023) Received from [facility] Hunger Vital Sign Worried About Running Out of Food in the Last Year: Never true Ran Out of Food in the Last Year: Never true Transportation Needs: No Transportation Needs (10/27/2023) Received from [facility] PRAPARE - Transportation Lack of Transportation (Medical): No Lack of Transportation (Non-Medical): No Physical Activity: Insufficiently Active (10/27/2023) Received from [facility] Exercise Vital Sign Days of Exercise per Week: 3 days Minutes of Exercise per Session: 20 min Stress: Stress Concern Present (10/27/2023) Received from [facility] [place] [employer] Occupational Health - Occupational Stress Questionnaire Feeling of Stress : To some extent Social Connections: Moderately Integrated (10/27/2023) Received from [facility] Social Connection and Isolation Panel [NHANES] Frequency of Communication with Friends and Family: More than three times a week Frequency of Social Gatherings with Friends and Family: More than three times a week Attends [employer] Services: More than 4 times per year Active Member of Clubs or Organizations: No Attends Club or Organization Meetings: Never Marital Status: Intimate Partner Violence: Not on file Depression: Not at risk (06/30/2024) Received from [facility] PHQ-2 Patient Health Questionnaire-2 Score: 0 Housing Stability: Low Risk (10/27/2023) Received from [facility] Housing Stability Vital Sign Unable to Pay for Housing in the Last Year: No Number of Places Lived in the Last Year: 1 Unstable Housing in the Last Year: No Utilities: Not on file Health Literacy: Not on file Allergies: No Known Allergies Weight: 66.7kg Visit Vitals BP 127/67 (BP Location: Left arm, Patient Position: Sitting) Pulse 65 Ht 1.626 m (5' 4 ) Wt 66.7 kg (147 lb) SpO2 95% BMI 25.23 kg/m??? Smoking Status Never BSA 1.74 m??? Meds: Current Outpatient Medications on File Prior to Visit Medication Sig Dispense Refill carvedilol (Coreg) 12.5 mg tablet Take 12.5 mg by mouth with breakfast and with evening meal. cholecalciferol (Vitamin D-3) 50 MCG (1999 [place]) tablet denosumab (Prolia) 60 mg/mL syringe Inject 60 mg under the skin. Eliquis 5 mg tablet Take 5 mg by mouth twice a day. No current facility-administered medications on file prior to visit. Review of Systems Cardiovascular: Positive for palpitations. Respiratory: Positive for shortness of breath (with episodes of palpitations). All other systems reviewed and are negative. Physical Exam: Constitutional General Ap (more content not included)... Normal [facility] Office Visiton 09-21-2024 Follow-up visit [id number] Mary Kay Dugan 1950 F Date Provider Department Center 09/21/2024 SAVAGE FISH CARD [facility] Family History Problem Relation Age of Onset No Known Problems Mother No Known Problems Father Family Status - Relation Status Age at Mother Father Level of Service:[id number] [place] OFFICE/OUTPATIENT ESTABLISHED HIGH MDM [address] [facility] ALL CBC WITH AUTO DIFFon Erythrocyte distribution width (RBC) [Ratio] 12.4 % 11.0 - 15.0 % [facility] Hematocrit (Bld) [Volume fraction] 41.5 % 36.0 - 48.0 % [facility] Hemoglobin (Bld) [Mass/Vol] 13.6 g/dL 12.0 - 16.0 g/dL [facility] Interpretation and review of laboratory results Abnormal [facility] MCH (RBC) [Entitic mass] 30.6 pg 26.7 - 34.0 pg [facility] MCHC (RBC) [Mass/Vol] 32.8 g/dL 29.9 - 35.2 g/dL [facility] MCV (RBC) [Entitic vol] 93.5 fL 81.0 - 99.0 fL [facility] Platelet mean volume (Bld) [Entitic vol] 9.6 fL 9.5 - 13.5 fL [facility] PLT 233 [facility] RBC 4.44 [facility] WBC 3.6 Low [facility]INIS[facility] Orders Onlyon 09-14-2024 Orders Only [id number] Mary Kay Dugan 1950 F Date Provider Department Center 09/14/20242003-ADELAIDE CAN [facility] Family History Problem Relation Age of Onset No Known Problems Mother No Known Problems Father Family Status - Relation Status Age at Mother Father Normal [facility] Prep for Procedureon 025 Prep for Procedure [id number] Mary Kay Dugan 1950 F Date Provider Department Center 08/13/20241986-JEREMI ESTRADA [facility] [place] [facility] Family History Problem Relation Age of Onset No Known Problems Mother No Known Problems Father Family Status - Relation Status Age at Mother Father Normal [facility] Office Visiton 07-27-2024 Follow-up visit [id number] Mary Kay Dugan 1950 F Date Provider Department Center 07/27/2024 SAVAGE FISH VASQUEZ Nelson Family History Problem Relation Age of Onset No Known Problems Mother No Known Problems Father Family Status - Relation Status Age at Mother Father Level of Service:07369 [place] OFFICE/OUTPATIENT ESTABLISHED LOW MDM [address] [facility] Orders Onlyon 07-27-2024 Orders Only [id number] Mary Kay Dugan 1950 F Date Provider Department Center 07/27/2024 MARGARET HERNANDEZ [facility] Family History Problem Relation Age of Onset No Known Problems Mother No Known Problems Father Family Status - Relation Status Age at Mother Father Normal [facility] Office Visiton 06-22-2024 Follow-up visit [id number] Mary Kay Dugan 1950 F Date Provider Department Center 06/22/2024 SAVAGE FISH [facility] Family History Problem Relation Age of Onset No Known Problems Mother No Known Problems Father Family Status - Relation Status Age at Mother Father Level of Service:29711 [place] OFFICE/OUTPATIENT NEW MODERATE MDM [address] [facility] MG Mammogram Digital Screen Bilat + Tomoon 04-27-2024 MG Mammogram Digital Screen Bilat + Palmer #[id number] - MG MAMMOGRAM DIGITAL SCREEN BILAT + PALMER BILATERAL DIGITAL SCREENING MAMMOGRAM 3D/2D WITH CAD: 04/26/2024 CLINICAL: Screening. Comparison is made to exams dated: 02/05/2023 mammogram and 03/28/2020 mammogram - [facility]. There are scattered areas of fibroglandular density. Current study was also evaluated with a Computer Aided Detection (CAD) system. There are benign vascular calcifications in both breasts. No significant masses, calcifications, or other findings are seen in either breast. IMPRESSION: BENIGN There is no mammographic evidence of malignancy. A 1 year screening mammogram is recommended. (04/27/2025) The patient was notified of the results. Investigation of a clinically suspicious lesion should not be precluded by the lack of specific imaging findings. 10-15% of breast cancers may not be detected on mammograms. The [employer] supports annual screening mammography starting at age 40. Domi Gongora D.O. cw/penrad:04/27/2024 12:27:03 Global Security Architect(s): Betty Gruber [facility] letter sent: New Mammo Normal B1/2 Mammogram BI-RADS: 2 Benign Final Dictated by: Domi Gongora DO Signed by: Domi Gongora DO Signed (Electronic Signature): 04/27/2024 12:27 pm (If Report Is Signed, Electronically Signed in Other Vendor System) Normal [facility] Albuminon 03-22-2024 Albumin [Mass/Vol] 4.1 g/dL Normal 3.2-4.9 [facility] Comment on above: Performed By: #### A LB #### [address] [address] B12on 03-22-2024 Cobalamin (Vitamin B12) [Mass/Vol] 1249 pg/mL High 180-[address] [facility] Comment on above: Performed By: #### B 12 #### [address] [address] Calciumon 03-22-2024 Calcium [Mass/Vol] 9.1 mg/dL Normal 8.5-10.3 [facility] Comment on above: Performed By: #### C A #### [address] [address] TSHon 03-22-2024 TSH Qn 1.88 m[IU]/L Normal 0.45-5.[address] [facility] Comment on above: Result Comment: Refe rence Ranges for individuals from to 18 years of age were obtained from The Lien Nye Handbook (20 ed) published by [facility]. Reference Ranges for Females: Females, 1st Trimester 0.05 ? 3.7 uIU/mL Females, 2nd Trimester 0.31 ? 4.35 uIU/mL Females, 3rd Trimester 0.41 ? 5.18 uIU/mL Performed By: #### T SH #### [address] [address] Vitamin D 25-Hydroxy Totalon 03-22-2024 Vitamin D 25-Hydroxy Total 40 ng/mL Normal 30-[address] [facility] Comment on above: Result Comment: Melody min D 25-Hydroxy Total Reference Range: Deficient: < 20 Insufficient: 20 to < 30 Sufficient: 30 - 100 Upper Safety Limit: > 100 Performed By: #### C [id number] #### [address] [address] Gynecology Office/Clinic Not jenny 03-08-2024 Gynecology Office/Clinic Note Chief Complaint Annual History of Present Illness Pelvic Pain: No Painful Sex: No Abnormal Vaginal Discharge: No Abnormal Vaginal Bleeding: No Vaginal Dryness: No Vaginal Itch: No Vaginal Burning: No Vaginal Odor: No Hot Flashes: No Night Sweats: No Breast Lump: No Breast Pain: No Sexually Active: Yes Comments 03/03/24 11:22:00 73 y/o . Annual. Last annual 03/01/22 Last pap: S/P LSH Mammogram: 02/05/23 Benign, Fibroglandular Colonoscopy: 11/24/20, Normal-Dr. Sanchez q 5 yrs BD: 02/05/23, Osteoporosis-Prolia last 09/[address] Carbajal Denies any sld educational aide problems. Known prolapse-gd 1 cystocele and GSM-not bothersome. 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 Additional Details Menstrual History Age Menses [id number] Contraception Contraception TypeNone Review of Systems Head Migraines: Yes Migraines comment: 1x/month Headaches: No Eyes Corrective Lenses: Glasses Ears, Nose, Throat Congestion: No Vertigo: No Sore throat: No Nasal drainage: No Cardio Respiratory Peripheral edema: No Heart Irregularity: Yes Heart Irregularity comment: one episode-saw PCP Chest Pain: No Shortness of Breath: No Gastrointestinal Bloating: No Reflux/heartburn: No Abdominal Pain: No Change in bowel habits: No Urinary Urinary Incontinence: Yes Urinary Incontinence comment: stress Urinary frequency: No Nocturia: No Nocturia comment: 2x/night Urgency: No Painful urination: No Musculoskeletal Back Pain: No Muscle Aches: No Joint Pain: No Integumentary Lesions: No Moles: No Acne: No Hair changes: No PsychoSocial Sleep Problems: No Anxiety: No Suicidal Ideation: No Homicidal Ideation: No Depression: No Hematologic/Lymphatic Lymphadenopathy: No Thromboembolism: No Bruising: No Bleeding tendencies: No Endocrine Abnormal weight gain: No Abnormal weight loss: No Fatigue: Yes Physical Exam Vitals & Measurements BP: 116/64 HT: 163 cm WT: 66.0 kg WT: 66.0 kg (Dosing) BMI: 24.84 General: Alert and oriented, well nourished, no acute distress. Eye: PERRL, EOMI, normal conjunctiva. HEENT:Normocephalic, clear tympanic membranes, normal hearing, moist oral mucosa, no scleral icterus, no sinus tenderness. Neck: Supple, non-tender, no carotid bruits, no JVD, no lymphadenopathy. Lungs: Clear to auscultation and percussion, non-labored respiration. Heart: Normal rate, regular rhythm, no murmur, gallop or edema. Abdomen: Soft, non-tender, non-distended, normal bowel sounds, no masses. Musculoskeletal: Normal range of motion and strength, no tenderness or swelling. Skin: Skin is warm, dry and pink, no rashes or lesions. Neurologic: Awake, alert, and oriented X3, CN II-XII intact. Psychiatric: Cooperative, appropriate mood and affect. Breast exam: No fibrocystic changes noted bilaterally, no masses, tenderness, skin changes or nipple discharge. External Genitalia: Normal urethral meatus, no lesions, vulvar skin intact. Genitourinary: Atrophic vaginal mucosa, no lesions or abnormal discharge, cervix intact without lesions or bleeding. Gd 1 cystocele and rectocele. Bimanual exam: Absent uterus-s/p LSH. No adnexal tenderness or masses. Assessment/Plan 1. Encounter for gynecological examination (general) (routine) without abnormal findings Annual exam 1. Continue with breast self-exam/mammogram/col onoscopy screening 2. Maintain a low-fat, low sugar diet 3. Weight management, BMI, exercise (30 minutes daily) 4. Water intake (64 oz daily) and decrease caffeine 5. Calcium supplement with Vitamin D 6. Discussed menopausal symptom management 7. Due for Prolia next month. Labs for fatigue ordered if she did not get with new PCP 8. Lotrisone for umbilical yeast 9. Discussed pelvic organ prolapse.-gs 1 cystocele and rectocele Discussed symptoms. Discussed options for treatment including watchful waiting, kegel exercises, pessary, physical therapy, and surgery. She declines any treatment at this time. F/u 1 year for prolapse/GSM/OP check and she will call with any questions/problems prior to next appt. Ordered: clotrimazole-betamethas one dipropionate topical, 1 moy, Topical, BID, Apply twice daily to affected area for 5 days. May repeat in 2 weeks and as needed after., # 45 g, 1 Refill(s), Pharmacy: [facility]/pharmacy #[id number] Orders: MG Mammogram Digital Screen Bilat +Palmer MG Mammogram Digital Screen Bilat +Palmer Thyroid Stimulating Hormone Vitamin B12 Level Vitamin D 25-Hydroxy Total Medical Decision Making Chronic conditions NOT treated during this visit that affected my overall medical decision making: HTN Treatment plans discussed but not opted for at this time: see above Prescribed medication that requires intensive monitoring for toxicity: no I have reviewed the patient?s medication list for medication interactions/contraindi cations and/or for upcoming procedures: no Time Spent with the Patient I have personally spent 30 minutes on this date, directly related (more content not included)... Normal [facility] GLYCOHEMOGLOBIN A1Con 2020 ADA RECOMMENDATION ADA THERAPEUTIC TARG ET 6.0 - 7.0 ACTION SUGGESTED > 7.0 Normal [facility] Comment on above: Performed By: #### A 1C #### [facility] [address] [place] [address] Thor Chun Glucose [Mass/Vol] 111 mg/dL Normal [facility] Comment on above: Performed By: #### A 1C #### [facility] [address] [place] [address] Thor Chun HbA1c (Bld) [Mass fraction] 5.5 % Normal <=6.0 [facility] Comment on above: Performed By: #### A 1C #### [facility] [address] [place] [address] Thor Chun Covid-19 PCR (CVDTB)on 10-13 Sample Type Test performed using RT-PCR from a nasopharyngeal collected specimen. Normal [facility] Comment on above: Performed By: #### C VDTBH #### [facility] [address] [place] [address] Thor Chun SARS-CoV-2 (COVID-19) RNA AD+probe Ql (Unsp spec) Not detected Normal NOT DETECTED [facility] Comment on above: Result Comment: This test is not yet approved or cleared by the [place] FDA. When there are no FDA-approved or cleared tests available, and other criteria are met, FDA can make tests available under an emergency access mechanism called an Emergency Use Authorization (EUA). The EUA for this test is supported by the [place] of Health and Human Service's (HHS's) declaration that circumstances exist to justify the emergency use of in vitro diagnostics for the detection and/or diagnosis of the virus that causes COVID-19. This EUA will remain in effect (meaning this test can be used) for the duration of the COVID-19 declaration justifying emergency of IVDs, unless it is terminated or revoked by FDA (after which the test may no longer be used). When diagnostic testing is negative, the possibility of a false negative should be considered in the context of a patient's recent exposures and the presence of clinical signs and symptoms consistent with SARS-CoV-2. Performed By: #### C VDTBH #### [facility] [address] [place] [address] Thor Chun LACTOFERRIN FECAL QUANTon Lactoferrin, Fecal, Quant. 5.02 ug/mL(g) Normal 0.00-7.24 [facility] Comment on above: Result Comment: . Baseline (normal) 0.00 - 7.24 Elevated >7.24 . An elevated result is indicative of the presence of fecal lactoferrin, a marker of intestinal inflammation. A normal result does not exclude the presence of intestinal inflammation. The test can be used as an in vitro diagnostic aid to distinguish patients with active inflammatory bowel disease (IBD) from those with non-inflammatory irritable bowel syndrome (IBS). Performed By: #### L ACTFQ, ROTAV #### [facility] [address] [place] [address] Thor Chnu OVA AND PARASITE EXAMINATION on 10-11-2020 Ova + Parasite Exam Final report Normal [facility] Comment on above: Result Comment: Thes e results were obtained using wet preparation(s) and trichrome stained smear. This test does not include testing for Cryptosporidium parvum, Cyclospora, or Microsporidia. Performed By: #### O VAPE #### [facility] [address] [place] [address] Thor Chun Result 1 Comment Normal [facility] Comment on above: Result Comment: No o va, cysts, or parasites seen. . One negative specimen does not rule out the possibility of a parasitic infection. Performed By: #### O VAPE #### [facility] [address] [place] [address] Thor Chun C. DIFF PCRon 10-07-2020 C. DIFFICILE PCR Negative Normal NEGATIVE [facility] Comment on above: Performed By: #### C DIFPOC #### [facility] [address] [place] [address] Thor Chun CULTURE STOOLon 10-07-2020 CULTURE STOOL Culture Observations : NO GROWTH OF SALMONELLA, SHIGELLA OR YERSINIA AT 72 HOURS Culture Observations: NO GROWTH OF CAMPYLOBACTER, STAPHYLOCOCCUS OR E.COLI 0157 AT 72 HOURS Normal [facility] Comment on above: Performed By: #### S TOOLCX #### [facility] [address] [place], [place] [address] Thor Chun OCC BLD IMMUNOASSAYon 2020 OCCULT BLOOD Negative Normal NEGATIVE [facility] Comment on above: Performed By: #### O SEJAL #### [facility] [address] [place], [place] [address] Thor Chun Vital Signs Date Time Vital Sign Value Performing Clinician Faci lity 02-14-2025 10:090400 Body height 162.6 cm Sammie Carbajal MD Work Phone: [facility] 02-14-2025 10:090400 Body mass index (BMI) [Ratio] 25.23 kg/m2 Sammie Carbajal MD Work Phone: [facility] 02-14-2025 10:090400 Body weight 66.68 kg Sammie Carbajal MD Work Phone: [facility] 02-14-2025 10:09-0400 Diastolic blood pressure 72 mm[Hg] Sammie Carbajal MD Work Phone: [facility] 02-14-2025 10:09-0400 Heart rate 59 /min Sammie Carbajal MD Work Phone: [facility] 02-14-2025 10:09-0400 SaO2% (BldA) [Mass fraction] 96 % Sammie Carbajal MD Work Phone: [facility] 02-14-2025 10:09-0400 Systolic blood pressure 104 mm[Hg] Sammie Carbajal MD Work Phone: [facility] 10-04-2024 13:29-0400 Body height 162.6 cm Lay JAUREGUI Work Phone: [facility] 10-04-2024 13:29-0400 Body mass index (BMI) [Ratio] 25.47 kg/m2 Lay Gregoyr PA Work Phone: [facility] 10-04-2024 13:29-0400 Body weight 67.31 kg Lay Gregory PA Work Phone: [facility] 10-04-2024 13:29-0400 Diastolic blood pressure 74 mm[Hg] Lay Hemmer PA Work Phone: [facility] 10-04-2024 13:29-0400 Heart rate 69 /min Lay Hemmer PA Work Phone: [facility] 10-04-2024 13:29-0400 Respiratory rate 16 /min Lay Hemmer PA Work Phone: [facility] 10-04-2024 13:29-0400 SaO2% (BldA) [Mass fraction] 96 % Lay Hemmer PA Work Phone: [facility] 10-04-2024 13:29-0400 Systolic blood pressure 118 mm[Hg] Lay Hemmer PA Work Phone: [facility] 08-02-2024 08:58-0500 Body height 162.6 cm Sammie Carbajal MD Work Phone: [facility] 08-02-2024 08:58-0500 Body mass index (BMI) [Ratio] 24.72 kg/m2 Sammie Carbajal MD Work Phone: [facility] 08-02-2024 08:58-0500 Body weight 65.32 kg Sammie Carbajal MD Work Phone: [facility] 08-02-2024 08:58-0500 Diastolic blood pressure 78 mm[Hg] Sammie Carbajal MD Work Phone: [facility] 08-02-2024 08:58-0500 Heart rate 89 /min Sammie Carbajal MD Work Phone: [facility] 08-02-2024 08:58-0500 SaO2% (BldA) [Mass fraction] 96 % Sammie Carbajal MD Work Phone: [facility] 08-02-2024 08:58-0500 Systolic blood pressure 114 mm[Hg] Sammie Carbajal MD Work Phone: [facility] 06-30-2024 11:02-0500 Body mass index (BMI) [Ratio] 25.23 kg/m2 Lay Hemmer PA Work Phone: [facility] 06-30-2024 11:02-0500 Body weight 66.68 kg Lay Hemmer PA Work Phone: [facility] 06-30-2024 11:02-0500 Diastolic blood pressure 85 mm[Hg] Lay Hemmer PA Work Phone: [facility] 06-30-2024 11:02-0500 Heart rate 71 /min Lay Hemmer PA Work Phone: [facility] 06-30-2024 11:02-0500 Respiratory rate 17 /min Lay Hemmer PA Work Phone: [facility] 06-30-2024 11:02-0500 SaO2% (BldA) [Mass fraction] 99 % Lay Hemmer PA Work Phone: [facility] 06-30-2024 11:02-0500 Systolic blood pressure 115 mm[Hg] Lay Hemmer PA Work Phone: [facility] 06-02-2024 10:48-0500 Body height 162.6 cm Lay Hemmer PA Work Phone: [facility] 06-02-2024 10:48-0500 Body mass index (BMI) [Ratio] 24.96 kg/m2 Lay Hemmer PA Work Phone: [facility] 06-02-2024 10:48-0500 Body weight 65.95 kg Lay Hemmer PA Work Phone: [facility] 06-02-2024 10:48-0500 Diastolic blood pressure 68 mm[Hg] Lay Hemmer PA Work Phone: [facility] 06-02-2024 10:48-0500 Heart rate 92 /min Lay Hemmer PA Work Phone: [facility] 06-02-2024 10:48-0500 Respiratory rate 16 /min Lay Hemmer PA Work Phone: [facility] 06-02-2024 10:48-0500 SaO2% (BldA) [Mass fraction] 96 % Lay Hemmer PA Work Phone: [facility] 06-02-2024 10:48-0500 Systolic blood pressure 120 mm[Hg] Lay JAUREGUI Work Phone: [facility] Encounters Encounter Date Encounter Type Care Provider Facility Start: 02-14-2025 End: 02-14-2025 Office outpatient visit 25 minutes Sammie Carbajal MD Work Phone: [facility] Comment on above: Elevated BP without diagnosis of hypertension (Primary Dx); Paroxysmal atrial fibrillation (HCC) Start: 02-14-2025 End: 02-14-2025 ambulatory SAMMIE CARBAJAL Not Available Start: 02-08-2025 ambulatory Sammie Carbajal MD F acility:[facility] Start: 12-21-2024 End: 12-21-2024 ambulatory [facility] Start: 10-26-2024 End: 10-26-2024 ambulatory [facility] Start: 10-04-2024 End: 10-04-2024 Bamboo flowsheet Lay JAUREGUI Work Phone: [facility] Start: 10-04-2024 End: 10-04-2024 Bamboo flowsheet Lay Gregory PA Work Phone: [facility] Start: 10-04-2024 End: 10-04-2024 Transitional care manage srvc 14 day discharge Lay JAUREGUI Work Phone: [facility] Comment on above: Atrial fibrillation, unspecified type (CMS/HCC) (Primary Dx); Elevated BP without diagnosis of hypertension; History of cardiac radiofrequency ablation Start: 10-04-2024 End: 10-04-2024 ambulatory LAY GREGORY Not Available Start: 09-23-2024 Evaluation and management of inpatient ARYA MORGAN [facility] Start: 09-22-2024 ambulatory [facility] Start: 09-22-2024 ambulatory [facility] Start: 09-22-2024 End: 09-23-2024 Evaluation and management of inpatient [facility] Start: 09-21-2024 End: 09-21-2024 ambulatory [facility] Start: 09-14-2024 End: 09-14-2024 Clinisync Result Encounter Generic External Data Provider [facility] Unsolicited Start: 09-14-2024 End: 09-14-2024 Clinisync Result Encounter Generic External Data Provider [facility] Unsolicited Start: 08-02-2024 End: 08-02-2024 Office outpatient visit 25 minutes Sammie Carbajal MD Work Phone: [facility] Comment on above: Elevated BP without diagnosis of hypertension (Primary Dx); Paroxysmal atrial fibrillation (CMS/HCC); Unspecified atrial fibrillation (CMS/HCC) Start: 08-02-2024 End: 08-02-2024 ambulatory SAMMIE CARBAJAL Not Available Start: 07-27-2024 End: 07-27-2024 ambulatory [facility] Start: 06-30-2024 End: 06-30-2024 Bamboo flowsheet Lay JAUREGUI Work Phone: [facility] Start: 06-30-2024 End: 06-30-2024 Bamboo flowsheet Lay JAUREGUI Work Phone: [facility] Start: 06-30-2024 End: 06-30-2024 Patient encounter procedure Lay JAUREGUI Work Phone: [facility] Comment on above: Medicare annual well ness visit, initial (Primary Dx); ACP (advance care planning); Paroxysmal atrial fibrillation (CMS/HCC); Elevated BP without diagnosis of hypertension; Palpitations; Hypercholesteremia (CMS/HCC); Age-related osteoporosis without current pathological fracture (CMS/HCC); Osteopenia of multiple sites Start: 06-30-2024 End: 06-30-2024 ambulatory LAY GREGORY Not Available Start: 06-22-2024 End: 06-22-2024 ambulatory [facility] Start: 06-02-2024 End: 06-02-2024 Office outpatient visit 25 minutes Lay JAUREGUI Work Phone: [facility] Comment on above: Paroxysmal atrial fi brillation (CMS/HCC) (Primary Dx); Cellulitis of left leg; Age-related osteoporosis without current pathological fracture (CMS/HCC) Start: 06-02-2024 End: 06-02-2024 ambulatory LAY GREGORY Not Available Start: 04-26-2024 End: 04-26-2024 ambulatory Sammie Carbajal MD Facility:[facility] Start: 03-31-2024 End: 03-31-2024 ambulatory Sammie Carbajal MD Facility:[facility] Start: 03-22-2024 End: 03-22-2024 ambulatory Sammie Carbajal MD Facility:[facility] Start: 03-08-2024 End: 03-08-2024 ambulatory Coreen Hector PA-C Facility:[facility] Start: 10-11-2023 End: 06-02-2024 Patient encounter status Lay JAUREGUI Work Phone: [facility] Start: 10-29-2021 Office Services Shelia chicas Other [facility] Office Start: 12-01-2020 End: 12-02-[address] FIORELLA CARRILLO Facility:[facility] Start: 11-07-2020 Encounter for preprocedural laboratory examination DR SOMMER TOM [facility] Start: 11-03-2020 End: 11-03-[address] SOMMER TOM Facility:[facility] Start: 11-03-2020 End: 11-03-2020 Encounter for preprocedural laboratory examination DR SOMMER TOM Facility:[facility] Start: 10-07-2020 End: 10-08-[address] FIORELLA CARRILLO Facility:[facility] Start: 04-26-[address] SOMMER TOM Facil ity:[facility] Start: 08-15-2015 Procedure Nicholas Fior romero Other [facility] Procedures Date Procedure Procedure Detail Performing Clinician Start: 09-14-2024 ALL CBC WITH AUTO DIFF Generic External Data Provider Start: 04-27-2024 Mammography Generic Pr ovider Start: 10-29-2021 Docrev cur meds by e lig clin Shelia Blake Start: 10-09-[address] WILSON Comment on above: Performed By: #### L ACTFQ, ROTAV #### [facility] [address] [place], [place] [address] Thor Chun Plan of Treatment Date Care Activity Detail Author Start: 06-30-2025 Medicare Annual Well ness (AWV) Medicare Annual Wellness (AWV) [facility] Start: 04-27-2025 Screening for malign ant neoplasm of breast Mammogram [facility] Start: 03-14-2025 Influenza vaccination Influenza Vacc ine (#1) [facility] Start: 01-31-2025 End: 01-31-2025 Patient encounter procedure 01/31/2025 9:00 AM EDT Office Visit [facility] [address] [place] [address] Sammie Carbajal MD [address] [place] [address] [facility] Start: 01-10-2025 Influenza vaccination Influenza Vacc ine (#1) [facility] Comment on above: Postponed from 03/14 (Patient Refused) Start: 10-26-2024 Pneumococcal Vaccine : 65+ Years (1 of 1 - PCV) Pneumococcal Vaccine: 65+ Years (1 of 1 - PCV) [facility] Comment on above: Postponed from 09/27 (Patient Refused) Start: 10-04-2024 End: 10-04-2024 Patient encounter procedure 10/04/2024 1:30 PM EDT Office Visit [facility] [address] [place] [address] Lay Gregory PA [address] [place] [address] Arrived [facility] Comment on above: Arrived Start: 08-02-2024 End: 08-02-2024 Patient encounter procedure 08/02/2024 9:00 AM EST Office Visit [facility] [address] [place] [id number] Sammie Carbajal MD [address] [facility] [address] [place] [address] [facility] Start: 06-30-2024 End: 06-30-2024 Patient encounter procedure [facility] Comment on above: Arrived Start: 2000 Pneumococcal Vaccine : 65+ Years (1 of 1 - PCV) Pneumococcal Vaccine: 65+ Years (1 of 1 - PCV) [facility] Start: 1990 Screening for malign ant neoplasm of breast Mammogram [facility] Start: 1950 Medicare Annual Well ness (AWV) Medicare Annual Wellness (AWV) [facility] Start: 1950 Screening for malign ant neoplasm of colon [facility] Immunizations Immunization Date Immunization Notes Care Provider Fa cility 07-18-2004 hepatitis B vaccine, adult dosage Lay JAUREGUI Work Phone: [facility] 11-03-2003 hepatitis B vaccine, adult dosage Lay Hemreece JAUREGUI Work Phone: [facility] 09-21-2003 hepatitis B vaccine, adult dosage Lay Hemreece JAUREGUI Work Phone: [facility] Payers Date Payer Category Payer Managed Care [facility] (unspecified) [employer] [id number] 2022 Private Health Insurance 2015 Medicare [id number] 1959 Medicare [id number] 1959 Medicare [id number] 1959 [facility] Health Insurance [facility] [id number] 1950 Unknown [id number] [id number]. 593 1950 Unknown [id number] 2.16.840.1.451611.3.579.2. 593 1950 Unknown [id number] 2.16.840.1.981795.3.579.2. 593 1950 Unknown [id number] 2.16.840.1.593159.3.579.2. 593 1950 Unknown [id number] 2.16.840.1.654225.3.579.2. 593 1950 Unknown [id number] 2.16.840.1.231194.3.579.2. 196 1950 Unknown [id number] 2.16.840.1.310107.3.579.2. 196 1950 Unknown [id number] 2.16.840.1.164241.3.579.2. 196 1950 Unknown [id number] 2.16.840.1.070463.3.579.2. 196 1950 Unknown [id number] 2.16.840.1.852057.3.579.2. 196 1950 Unknown [id number] 2.16.840.1.931434.3.579.2. 196 1950 Unknown [id number] 2.16.840.1.878235.3.579.2. 196 1950 Unknown [id number] 2.16.840.1.895364.3.579.2. 1259 1950 Unknown [id number] 2.16.840.1.210010.3.579.2. 1259 1950 Unknown [id number] 2.16.840.1.890009.3.579.2. 1259 1950 Unknown [id number] 2.16.840.1.612153.3.579.2. 1259 1950 Unknown [id number] 2.16.840.1.024200.3.579.2. 125 Unknown [id number] [id number] Social History Date Type Detail Facility Start: 01-01-2023 Tobacco smoking status ORIS Never sm oked tobacco [facility] Start: 01-01-2023 Tobacco use and exposure Smoke less tobacco non-user [facility] Start: 06-02-2024 End: 02-14-2025 Alcoholic beverage intake Current drinker of alcohol (finding) [facility] Start: 06-02-2024 End: 02-11-2025 Alcoholic beverage intake [facility] Start: 10-27-2023 End: 02-11-2025 Social connection and isolation panel [facility] Do you belong to any clubs or organizations such as religious groups, unions, fraternal or athletic groups, or school groups? No [facility] Are you now , , , , never or living with a partner? [facility] How often to you hav e a drink containing alcohol? 2-4 times a month [facility] How many standard dr inks containing alcohol do you have on a typical day? 1 or 2 [facility] How often do you hav e 6 or more drinks on 1 occasion? Never [facility] How hard is it for y ou to pay for the very basics like food, housing, medical care, and heating Not very hard [facility] Do you feel stress - tense, restless, nervous, or anxious, or unable to sleep at night because your mind is troubled all the time - these days [OSQ] To some extent [facility] (I/We) worried wheth er (my/our) food would run out before (I/we) got money to buy more. Never true [facility] In the past 12 month s, has lack of transportation kept you from medical appointments or from getting medications? No [facility] Start: 01-01-2023 Alcohol Comment socially [facility] Start: 1950 Sex assigned at Female [facility] Start: 01-01-2023 Gender identity Identifies as female gender (finding) [facility] Do you belong to any clubs or organizations such as religious groups, unions, fraternal or athletic groups, or school groups? Yes [facility] Functional Status Date Assessment Result Facility 02-14-2025 Patient Health Quest ionnaire 2 item (PHQ-2) [Reported] [facility] Clinical Notes 03-03-2024 to 02-14-2025 Sammie Carbajal MD - 02/14/2025 10:28 AM John Carbajal MD - 02/14/2025 10:16 AM John Carbajal MD - 02/14/2025 10:00 AM SHANIA Hubbard - 10/04/2024 1:30 PM EDT Note Date & Type Note Facility 02-14-2025 History of Present illness Narrative Associated Problem(s): Elevated BP without diagnosis of hypertension [...] taking them as prescribed. DASH diet handouts Associated Problem(s): Atrial fibrillation (HCC) Sees Cardiology and is s/p Ablation and Amiodorone Avoid Caffeine Images from the original note were not [...] Acid (VITAMIN C PO) Take by mouth. Wopapsv-Egkkuoflm-Lrsfdgg D (CALCIUM 1200+D3 PO) carvedilol (Coreg) 12.5 [...] times a day as needed for dizziness Edmonson-3 Fatty Acids (Fish Oil) 1200 MG capsule delayed-release Turmeric (QC Tumeric Complex) 500 MG capsule vitamin E 180 MG (400 UNIT) capsule zinc gluconate 50 MG tablet Take 50 mg by mouth in the morning. [DISCONTINUED] famotidine (Pepcid) 20 MG tablet Take 20 mg by mouth in the morning and 20 mg in the evening. [DISCONTINUED] omeprazole (PriLOSEC) [address] capsule [...] Wt 147 lb SpO2 96% BMI 25.23 kg/m Smoking Status Never BSA 1.74 m Review of Systems Constitutional: Negative for chills, [...] follow-ups on file. documented in this encounter [facility] 12-21-2024 Note [place] Electrophysiology Consult Note [place] [facility] - [facility] Reason for visit: atrial fibrillation 12/21/24 Patient here today for a 2 month follow up per Pam Flores, request. Patient states she is feeling better, patient states she felt terrible after the procedure, patient states she is slowly getting her energy back and feeling like herself., fatigue is slowly going away as well. Patient denies cardiac symptoms at this time. Patient states she is worried if she returns to her normal activities she will set off the A-Fib. Patient states she would like to know how long she will be on amiodarone, what's the risk of A-Fib coming back, in her chart she wants to know why it says ischemia and what are the risks and concerns with that, what medications will she need to be on residential, and what can she stop taking. She underwent A-fib ablation on 09/22/2024 wherein she underwent PVI as well as CTI ablation. On a subsequent visit in October 2024 with Pam Mariscal she was noted to be bradycardic and so the Coreg dose was reduced to 3.125 twice daily. EKG 12/21/2024 shows sinus rhythm with a rate of 57 bpm. Review of Systems Constitutional: Positive for malaise/fatigue. 09/21/14 Patient here for H&P prior to afib ablation scheduled tomorrow. Denies chest pain, lightheadedness/syncope, and bleeding on Eliquis. 07/27/24 Patient here for follow up event monitor. She denies chest pain, SOB, palpitations, lightheadedness/syncope, and bleeding on Eliquis. Pt doing well. Eventmonitor placed evealed AF epsiode of 07/02/24. She is tolerating DOAC well HPI: Mary Kay Dugan is a 74 y.o. year old with past medical history of .HLD, palpitations. New patient here to establish care for follow up [facility] for new afib/flutter. She was already on carvedilol, but was also started on Eliquis. Denies bleeding issues so far. Hasn't had palpitations for awhile. Denies chest pain and SOB. Patient was recently seen at [facility] on 05/25/24 for complaints of racing heart beats. She states she took her 's pulse ox and put it on her finger and could see her heart rate bouncing up and down. She was found to be in newly found atrial fibrillation at the hospital. They discharged her home with a 7 day holter monitor which she wore. She felt one episode on the holter monitor but has felt well since. Holter monitor findings: 06/16- revealed episode of atrial fibrillation. Patient was symptomatic, states she felt her heart racing and beating funny PMH: Past Medical History: Diagnosis Date Abnormal ECG Afib (CMS/HCC) Arrhythmia Asthma Atrial fibrillation (CMS/HCC) Hyperlipidemia Hypertension Osteoporosis PSH: Past Surgical History: Procedure Laterality Date ABLATION OF DYSRHYTHMIC FOCUS ANKLE FRACTURE SURGERY Right HYSTERECTOMY TONSILLECTOMY SH: Social Determinants of Health Tobacco Use: Low Risk (12/21/2024) Patient History Smoking Tobacco Use: Never Smokeless Tobacco Use: Never Passive Exposure: Not on file Alcohol Use: Not At Risk (10/27/2023) Received from [facility] [employer] AUDIT-C Frequency of Alcohol Consumption: 2-4 times a month Average Number of Drinks: 1 or 2 Frequency of Binge Drinking: Never Financial Resource Strain: Low Risk (09/22/2024) Overall Financial Resource Strain (CARDIA) Difficulty of Paying Living Expenses: Not hard at all Food Insecurity: No Food Insecurity (09/22/2024) Hunger Vital Sign Worried About Running Out of Food in the Last Year: Never true Ran Out of Food in the Last Year: Not on file Transportation Needs: No Transportation Needs (09/22/2024) Transportation Lack of Transportation (Medical): No Lack of Transportation (Non-Medical): Not on file Physical Activity: Insufficiently Active (10/27/2023) Received from [facility] [employer] Exercise Vital Sign Days of Exercise per Week: 3 days Minutes of Exercise per Session: 20 min Stress: Stress Concern Present (10/27/2023) Received from [facility] [employer] [place] [facility] - Occupational Stress Questionnaire Feeling of Stress : To some extent Social Connections: Moderately Integrated (10/27/2023) Received from [facility] Social Connection and Isolation Panel [NHANES] Frequency of Communication with Friends and Family: More than three times a week Frequency of Social Gatherings with Friends and Family: More than three times a week Attends [employer] Services: More than 4 times per year Active Member of Clubs or Organizations: No Attends Club or Organization Meetings: Never Marital Status: Intimate Partner Violence: Unknown (09/22/2024) Humiliation, Afraid, Rape, and Kick questionnaire Fear of Current or Ex-Partner: No Emotionally Abused: Not on file Physically Abused: Not on file Sexually Abused: Not on file Depression: Not at risk (10/04/2024) Received from [facility] PHQ-2 Patient Health Questionnaire-2 Score: 0 Housing Stabi (more content not included)... [facility] 10-26-2024 Note Cardiovascular Medic [facility] SUBJECTIVE Chief Complaint Patient presents with Hypertension Atrial Fibrillation Mary Kay Dugan is a 74 y.o. female here for follow-up. HPI PMHx: HLD, palpitations, a.fib/flutter s/p ablation 09/22/2024, HTN 10/26/2024 Since her ablation, she hasn't felt as well/hasn't felt like herself. She is typically very active and stays busy. She has felt more fatigued and sluggish. She has tried to exert herself and has found that she felt like she would go into a.fib, she was feeling palpitations. She was started on amiodarone 2 weeks ago. This has helped. She has some MCDANIEL with climbing her 3rd flight of stairs at home. This is intermittent. Denies CP, orthopnea, PND, LE edema, syncope, bleeding issues. Patient Active Problem List Diagnosis Age-related osteoporosis without current pathological fracture Elevated BP without diagnosis of hypertension Hypercholesteremia Osteopenia Palpitations Migraine aura occurring with and without headache Atrial fibrillation (CMS/HCC) Hypomagnesemia Prolonged Q-T interval on ECG History of cardiac radiofrequency ablation Past Medical History: Diagnosis Date Abnormal ECG Afib (CMS/HCC) Arrhythmia Asthma Atrial fibrillation (CMS/HCC) Hyperlipidemia Hypertension Osteoporosis Family History Problem Relation Name Age of Onset Heart failure Mother Dementia Father Social History Tobacco Use Smoking status: Never Smokeless tobacco: Never Tobacco comments: vapes Substance Use Topics Alcohol use: Yes Comment: socially Drug use: Never Allergies Allergen Reactions Tree Nuts Anaphylaxis ROS Constitutional: Positive for malaise/fatigue. Cardiovascular: Positive for dyspnea on exertion and irregular heartbeat (at times). Neurological: Positive for dizziness. OBJECTIVE Visit Vitals BP 119/70 (BP Location: Left arm, Patient Position: Sitting) Pulse 54 Ht 1.626 m (5' 4 ) Wt 66.7 kg (147 lb) SpO2 97% BMI 25.23 kg/m??? OB Status Postmenopausal Smoking Status Never BSA 1.74 m??? Medications: Current Outpatient Medications: carvedilol (Coreg) 6.25 mg tablet, Take 3.125 mg by mouth with breakfast and with evening meal., Disp: , Rfl: cholecalciferol (Vitamin D-3) 50 MCG (1999) tablet, , Disp: , Rfl: denosumab (Prolia) 60 mg/mL syringe, Inject 60 mg under the skin. Twice a year, Disp: , Rfl: Eliquis 5 mg tablet, Take 1 tablet (5 mg) by mouth two times daily. Do not start before September 24, 2024., Disp: 60 tablet, Rfl: 0 amiodarone (Pacerone) 200 mg tablet, Take 1 tablet (200 mg) by mouth in the morning., Disp: 90 tablet, Rfl: 1 Physical Exam Vitals reviewed. Constitutional: Appearance: Normal appearance. She is normal weight. HENT: Head: Normocephalic and atraumatic. Right Ear: External ear normal. Left Ear: External ear normal. Eyes: Extraocular Movements: Extraocular movements intact. Conjunctiva/sclera: Conjunctivae normal. Pupils: Pupils are equal, round, and reactive to light. Neck: Vascular: No carotid bruit. Cardiovascular: Rate and Rhythm: Normal rate and regular rhythm. Pulses: Normal pulses. Heart sounds: Normal heart sounds. Pulmonary: Effort: Pulmonary effort is normal. Breath sounds: Normal breath sounds. Abdominal: General: Bowel sounds are normal. Palpations: Abdomen is soft. Musculoskeletal: Cervical back: Neck supple. Right lower leg: No edema. Left lower leg: No edema. Skin: General: Skin is warm and dry. Comments: Right groin cath site with soft resolving hematoma, nontender, no ecchymosis Neurological: General: No focal deficit present. Mental Status: She is alert and oriented to person, place, and time. Psychiatric: Mood and Affect: Mood normal. Behavior: Behavior normal. Thought Content: Thought content normal. Judgment: Judgment normal. Labs: No results found for: EXTCMP , BMPR1A , CBCDIF , BNP , LASAP , RED Admission on 09/22/2024, Discharged on 09/23/2024 Component Date Value Ventricular Rate 09/22/2024 56 Atrial Rate 09/22/2024 56 MN Interval 09/22/2024 168 QRS DURATION 09/22/2024 76 QT Interval 09/22/2024 476 QTC CALCULATION(BAZETT) 09/22/2024 459 P [place] 09/22/2024 28 R-[place] 09/22/2024 -25 T Wave [place] 09/22/2024 22 Protime 09/22/2024 14.1 INR 09/22/2024 1.09 Glucose POC 09/22/2024 101 Ventricular Rate 09/22/2024 53 Atrial Rate 09/22/2024 53 MN Interval 09/22/2024 174 QRS DURATION 09/22/2024 92 QT Interval 09/22/2024 526 QTC CALCULATION(BAZETT) 09/22/2024 493 P [place] 09/22/2024 73 R-[place] 09/22/2024 4 T Wave [place] 09/22/2024 68 Magnesium 09/22/2024 1.4 (L) Sodium 09/22/2024 138 Potassium 09/22/2024 3.5 Chloride 09/22/2024 102 CO2 09/22/2024 22 Anion Gap 09/22/2024 18 BUN 09/22/2024 14 Creatinine 09/22/2024 0.72 BUN/Creatinine Ratio 09/22/2024 19.4 Glucose 09/22/2024 168 (H) Calcium 09/22/2024 8.9 AST 09/22/2024 36 ALT (SGP (more content not included)... [facility] 10-26-2024 Note Patient here for her follow up s/p ablation for A-Fib. Patient states has not been feeling that good. Patient states since the ablation she is more fatigued than usual, has no energy,Patient states she has dyspnea with exertion, slight dizziness/lightheadedness. Patient states she still notices her heart beating flutter at times. Patient has question in reference to what she is able to do and not. Like lifting and gardening ect. Review of Systems Constitutional: Positive for malaise/fatigue. Cardiovascular: Positive for dyspnea on exertion and irregular heartbeat (at times). Neurological: Positive for dizziness. [facility] 10-04-2024 History of Present illness Narrative Images from the original note were not included. Subjective Patient ID: Mary Kay Dugan is a 74 y.o. female who presents for [facility] follow up. Flowsheet Row Telephone from 10/01/2024 in [facility] with Ivelisse Quan LPN Hospital Information ED, Hospital or Longterm Facility Discharge? Hospital Patient has been contacted within two business days of discharge Yes Diagnosis Afib Discharge Date 09/23/24 Discharged To: Home Setting Discharge Hospital [facility] Engagement Call Start Time 1038 Admission Date 09/22/24 Medications Discharge medications reviewed and reconciled from hospital? Yes Is the patient having any side effects they believe may be caused by any medication additions or changes? No Does the patient have all medications ordered at discharge? Yes Prescription Comments -- [they stopped her Coreg and started her on Famotidine 20 mg BID and Omeprazole 40 mg daily] Is the patient taking all medications as directed (includes completed medication regime)? Yes Appointments Does the patient have a primary care provider? Yes Does the patient have any upcoming specialty appointments? 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 She did work out at the gym but not sure if she can do that yet or not. Is trying to go for walks. Sees Cardiology on 10/26/2024. States has a hard lump at the incision site for her ablation in her right inguinal region. Not too painful, she was told it would go away in time. Occasionally itches. No additional bleeding, no redness. The bruising is getting better. Current Outpatient Medications on File Prior to Visit Medication Sig Dispense Refill famotidine (Pepcid) 20 MG tablet Take 20 mg by mouth in the morning and 20 mg in the evening. omeprazole (PriLOSEC) [address] capsule Take 40 mg by mouth in the morning. Take before meals. Ascorbic Acid (VITAMIN C PO) Take by mouth. Pzirilu-Rdqznsemw-Qgslxud D (CALCIUM 1200+D3 PO) cholecalciferol (D3) 50 MCG (2000 UT) tablet [...] times a day as needed for dizziness Edmonson-3 Fatty Acids (Fish Oil) 1200 MG capsule delayed-release Turmeric (QC Tumeric Complex) 500 MG capsule vitamin E 180 MG (400 UNIT) capsule zinc gluconate 50 MG tablet Take 50 mg by mouth in the morning. [DISCONTINUED] carvedilol (Coreg) 12.5 MG tablet Take 12.5 mg by mouth in the morning and 12.5 mg in the evening. Take with meals. No current facility-administered medications on file [...] History: Diagnosis Date Allergic Allergic rhinitis Hypertension (CMS/[facility]) 10/11/2023 Osteoporosis (CMS/[facility]) 08/14/2015 Past Surgical History: Procedure Laterality Date ADENOIDECTOMY Childhood ANKLE SURGERY Right 2016 CARDIAC ELECTROPHYSIOLOGY STUDY AND ABLATION 09/22/2024 Persistent Atrial Fibrillation FRACTURE SURGERY 08/15/2015 HYSTERECTOMY TUBAL LIGATION 05/01/1978 Visit Vitals BP 118/74 Pulse 69 Resp 16 Ht 5' 4 Wt 148 lb 6.4 oz SpO2 96% BMI 25.47 kg/m Smoking Status Never BSA 1.74 m Review of Systems Constitutional: Negative for chills, fatigue and fever. Respiratory: Negative for cough, shortness of breath and wheezing. Cardiovascular: Negative for chest pain, palpitations and leg swelling. Gastrointestinal: Negative for abdominal pain, constipation, diarrhea, nausea and vomiting. Skin: Negative for rash. Objective Physical Exam Constitutional: General: She is not in acute distress. Appearance: Normal appearance. She is well-developed. HENT: Head: Normocephalic and atraumatic. Eyes: General: No scleral icterus. Conjunctiva/sclera: Conjunctivae normal. Cardiovascular: Rate and Rhythm: Normal rate and regular rhythm. Heart sounds: Normal heart sounds. No murmur heard. Pulmonary: Effort: Pulmonary effort is normal. No respiratory distress. Breath sounds: Normal breath sounds. No wheezing, rhonchi or rales. Skin: General: Skin is warm and dry. Comments: Area of oval shaped nodular density, right inguinal region, non-tender, skin healing well s/p recent ablation. Neurological: General: No focal deficit present. Mental Status: She is alert and oriented to person, place, and time. Psychiatric: Mood and Affect: Mood normal. Behavior: Behavior normal. Assessment/Plan Diagnoses and all orders for this visit: Atrial fibrillation, unspecified type (CMS/HCC) S/P ablation with resolution of A-fib. Patient has regular rate and rhythm and denies any symptoms regarding ablation including dizziness, chest pain, or palpitations. Reassurance given that the right inguinal region swelling should gradually improve over time. Contact office if any concerns. Elevated BP without diagnosis of hypertension Blood pressure is not elevated in office today. Encouraged continue to aim for healthy lifestyle, including continued exercise and healthy diet. Regarding current exercise level, walking, or using exercise bike in moderation are recommended until she follows up with Cardiology. History of cardiac radiofrequency ablation Follow up with Cardiology as scheduled on 10/26/2024. She will continue Eliquis as prescribed. The patient was seen today in follow up of recent hospital stay. All available hospital records were reviewed and discussed with the patient. Hospital discharge meds were reviewed. Follow up for Appointment As Scheduled. documented in this encounter [facility] 09-23-2024 Note [facility] CARDIOLOGY INPAT IENT PROGRESS NOTE Reason for follow up: s/p afib ablation on 09/22/24 Subjective Patient examined at [facility] this afternoon, POD 1 s/p afib ablation by Dr. Lutz yesterday. Her right femoral access site is oozing slowly at time of exam. She reports this just started after ambulating to bathroom. She has not yet received eliquis today. Denies any other bleeding overnight. Denies cp, sob, nausea/vomiting, abdominal or low back pain, leg pain, edema, palpitations, dizziness, or light headedness. Post procedure precautions were reviewed with patient including groin precautions. She states understanding. Manual pressure held to right femoral access site and pressure dressing applied. Tele: NSR 58-28, no alarms ALLERGIES Allergies Allergen Reactions Tree Nuts Anaphylaxis CURRENT MEDS [Held by provider] carvedilol, 12.5 mg, oral, BID with meals famotidine, 20 mg, oral, BID pantoprazole, 40 mg, oral, Daily lactated Ringer's, 30 mL/hr, Last Rate: 30 mL/hr (09/22/248) PRN medications: acetaminophen, HYDROcodone-acetaminophen, melatonin, morphine, naloxone OR naloxone OR naloxone, sennosides-docusate sodium, Insert peripheral IV AND Saline lock IV AND sodium chloride Objective Patient Vitals for the past 24 hrs: BP Temp Temp src Pulse Resp SpO2 Height Weight 09/23/24 1133 118/70 36.2 ???C (97.2 ???F) Temporal 81 14 93 % -- -- 09/23/24 0753 -- 36.7 ???C (98.1 ???F) Temporal -- -- -- -- -- 09/23/24 0745 122/74 -- -- 69 13 97 % -- -- 09/23/24 0500 -- -- -- -- -- -- -- 64.3 kg (141 lb 12.8 oz) 09/23/24 0400 106/64 36.5 ???C (97.7 ???F) Temporal 75 (!) 9 95 % -- -- 09/23/24 0000 112/63 36.7 ???C (98.1 ???F) Temporal 65 12 95 % -- -- 09/22/242005 118/60 36.7 ???C (98.1 ???F) Temporal 76 16 95 % -- -- 09/22/24 1845 125/56 36.7 ???C (98 ???F) Temporal 73 12 97 % 1.626 m (5' 4 ) 70 kg (154 lb 5.2 oz) 09/22/24 1820 110/64 36.2 ???C (97.2 ???F) -- 70 15 95 % -- -- 09/22/24 1750 118/76 -- -- 82 14 94 % -- -- 09/22/24 1720 121/63 -- -- 77 15 96 % -- -- 09/22/24 1615 117/69 36.2 ???C (97.2 ???F) -- 68 16 96 % -- -- 09/22/24 1540 124/76 -- -- 62 15 -- -- -- 09/22/24 1500 117/54 -- -- 54 13 98 % -- -- 09/22/24 1445 123/67 -- -- 60 15 100 % -- -- 09/22/24 1425 91/64 -- -- 63 17 95 % -- -- 09/22/24 1400 111/67 -- -- 61 10 100 % -- -- 09/22/24 1345 109/65 -- -- 59 11 100 % -- -- 09/22/24 1330 109/63 -- -- 56 10 99 % -- -- BP 118/70 Pulse 81 Temp 36.2 ???C (97.2 ???F) (Temporal) Resp 14 Ht 1.626 m (5' 4 ) Wt 64.3 kg (141 lb 12.8 oz) SpO2 93% BMI 24.34 kg/m??? Wt Readings from Last 3 Encounters: 09/23/24 64.3 kg (141 lb 12.8 oz) 09/21/24 66.7 kg (147 lb) 07/27/24 65.3 kg (144 lb) General: Awake, alert, appropriate mood / affect, NAD Eyes: anicteric sclera. Non-injected conjunctiva. Neck: No elevated JVP. No carotid bruit Pulm: Breath sounds clear to ascultation bilaterally with no wheeze, crackles or rhonchi Cards: HRRR, NL S1, S2. No S3 or S4 gallop. Murmur: none Abd: Soft, Nontender, physiologic bowel sounds are present Extr: Lower extremity edema: none. DP pulses present bilaterally Skin: warm, dry, well perfused Right femoral access site: soft, no hematoma palpable, small amount sanguineous drainage actively oozing from site, mild ecchymosis and mild tenderness, no bruit auscultated. Pressure dressing applied. Neuro: A&Ox3, No gross deficits Lab Results Component Value Date NA 135 (L) 09/23/2024 K 3.7 09/23/2024 CL 103 09/23/2024 ANIONGAP 10 09/23/2024 BUN 12 09/23/2024 CREATININE 0.62 09/23/2024 CALCIUM 9.0 09/23/2024 MG 2.2 09/23/2024 Lab Results Component Value Date BILITOT 1.2 (H) 09/22/2024 ALKPHOS 49 09/22/2024 AST 36 09/22/2024 ALT 19 09/22/2024 PROT 6.3 09/22/2024 ALBUMIN 4.3 09/22/2024 No results found for: CHOLESTEROL , CHOLESTEROL TOTAL , TRIGLYCERIDES , HDL , LDL CHOLESTEROL , LDL DIRECT , LDL CALC No results found for: BNP No results found for: THYROID , TSH , FREE T4 No results found for: DIGOXIN LVL No results found for: HGBA1C Lab Results Component Value Date WBC 11.05 (H) 09/23/2024 RBC 4.40 09/23/2024 HGB 13.4 09/23/2024 HCT 40.8 09/23/2024 MCV 92.7 09/23/2024 MCH 30.5 09/23/2024 MCHC 32.8 09/23/2024 RDW 12.7 09/23/2024 NEUTOPHILPCT 88.8 (H) 09/22/2024 LYMPHOPCT 8.4 (L) 09/22/2024 MONOPCT 2.3 (L) 09/22/2024 EOSPCT 0.0 09/22/2024 BASOPCT 0.1 09/22/2024 NEUTROABS 7.49 09/22/2024 LYMPHSABS 0.71 (L) 09/22/2024 MONOSABS 0.19 09/22/2024 EOSABS 0.00 09/22/2024 BASOSABS 0.01 09/22/2024 PLT 229 09/23/2024 NRBC 0.0 09/22/2024 No X-ray results found for the past 24 hours CV Testing: Encounter Date: 09/22/24 ECG 12 lead Result Value Ventricular Rate 53 Atrial Rate 53 MN Interval 174 QRS DURATION 92 QT Interval 526 QTC CALCULATION(BAZETT) 493 P [place] 73 R-[place] 4 T Wave [place] 68 Impression Sinus bradycardia (more content not included)... [facility] 09-22-2024 Note On Eliquis for antic oagulation S/p cardioversion and cardiac ablation [facility] 09-22-[address] [facility] 09-22-2024 Note We will avoid medica tions that contribute to prolonged QT [facility] 09-22-2024 Note Magnesium sulfate IV 2 g x 1 Will recheck levels with a.m. labs [facility] 09-22-2024 Note Hospital Medicine History and Physical 09/22/2024 8:41 PM THE HOSPITALIST TEAM PREFERS TO USE [employer] FOR NON-URGENT COMMUNICATION 7AM-7PM. IF I DO NOT RESPOND WITHIN 20 MINUTES OR URGENT MATTERS, PLEASE CALL THROUGH THE DIRECTOR OF CASEWORK SERVICES. FROM 7PM-7AM, PLEASE PAGE [phone](COVR). Chief Complaint No chief complaint on file. History of Present Illness Mary Kay Dugan is an 73 y.o. female who came from home with past medical history of A-fib, on Eliquis, GERD, migraines and osteoporosis presented to [facility] today for a planned cardioversion and cardiac ablation. Patient underwent procedure uneventfully and successfully but in the postsurgical period they had a hard time to complain bleeding from the procedure site so patient was advised to stay in the hospital overnight for observation in order to control the bleeding. There is no active bleeding on exam anymore. Patient is happy about the results because she is back in sinus rhythm. She denies any complaints. No chest pain or shortness of breath. No palpitations. No nausea or vomiting. Her magnesium is low so we will replace it. No other complaints or concerns. Her morning labs are ordered. Review of System and Physical Exam Temp: [36 ???C (96.8 ???F)-36.7 ???C (98.1 ???F)] 36.7 ???C (98.1 ???F) Heart Rate: [53-82] 76 Resp: [9-19] 16 BP: (91-129)/(50-76) 118/60 Arterial Line BP 1: (102-137)/(52-70) 134/67 Physical Exam Constitutional: General: She is not in acute distress. Appearance: Normal appearance. HENT: Head: Normocephalic and atraumatic. Eyes: Conjunctiva/sclera: Conjunctivae normal. Cardiovascular: Rate and Rhythm: Normal rate and regular rhythm. Heart sounds: No murmur heard. No friction rub. No gallop. Pulmonary: Effort: Pulmonary effort is normal. No respiratory distress. Breath sounds: Normal breath sounds. No wheezing, rhonchi or rales. Abdominal: General: Abdomen is flat. There is no distension. Tenderness: There is no abdominal tenderness. Musculoskeletal: General: No swelling or deformity. Skin: General: Skin is warm and dry. Findings: No rash. Neurological: General: No focal deficit present. Mental Status: She is alert and oriented to person, place, and time. Psychiatric: Mood and Affect: Mood normal. Behavior: Behavior normal. Thought Content: Thought content normal. Judgment: Judgment normal. Review of Systems as mentioned in HPI Assessment and Plan Assessment & Plan Atrial fibrillation ([facility]) On Eliquis for anticoagulation S/p cardioversion and cardiac ablation Hypomagnesemia Magnesium sulfate IV 2 g x 1 Will recheck levels with a.m. labs Prolonged Q-T interval on ECG We will avoid medications that contribute to prolonged QT History of cardiac radiofrequency ablation Cardiology follows GERD Migraine headaches Plan: Patient is admitted for observation to stepdown telemetry bed. Cardiology follows No active bleeding from the groin at the procedure site Home dose of PPI and Pepcid for GI prophylaxis EPC cuffs Morning labs and most likely patient will be discharged in a.m. VTE Prophylaxis: Eliquis ----- Focus of this inpatient stay will remain on problems that need acute care setting for care. We will review available studies and will order additional labs, imaging and other studies as appropriate. As needed medicines are ordered as appropriate. VTE Prophylaxis will be ordered as appropriate. Please see above for management plan for individual hospital problems. Home medications are reviewed and will be continued as appropriate. Patient will be continued to be followed during this hospital stay by a member of [facility]. Past Medical History Past Medical History: Diagnosis Date Abnormal ECG Afib ([facility]) Arrhythmia Asthma Atrial fibrillation ([facility]) Hyperlipidemia Hypertension Osteoporosis Past Surgical History Past Surgical History: Procedure Laterality Date ANKLE FRACTURE SURGERY Right HYSTERECTOMY TONSILLECTOMY Social History Social History Socioeconomic History Marital status: Spouse name: Not on file Number of children: Not on file Years of education: Not on file Highest education level: Not on file Occupational History Not on file Tobacco Use Smoking status: Never Smokeless tobacco: Never Substance and Sexual Activity Alcohol use: Not Currently Comment: socially Drug use: Never Sexual activity: Not on file Other Topics Concern Not on file Social History Narrative Not on file Social Determinants of Health Financial Resource Strain: Low Risk (10/27/2023) Received from [facility] Overall Financial Resource Strain (CARDIA) Difficulty of Paying Living Expenses: Not very hard Food Insecurity: No Food Insecurity (10/27/2023) Received from [facility] Hunger Vital Sign Worried About Running Out of Food in the Last Year: Never true Ran Out of Food (more content not included)... [facility] 09-22-2024 Note ATRIAL FIBRILLATION ABLATION PROCEDURE NOTE DATE OF PROCEDURE: 09/22/2024 PERFORMING PHYSICIAN: Dr. Savage Lutz CONSENT: Patient NAME OF THE PROCEDURE: Pulmonary Vein Isolation and Comprehensive EP study. INDICATIONS FOR PROCEDURE: 1. Persistent atrial fibrillation. FLUROSCOPY: 2.3min/7mGy. EBL: 15cc SPECIMEN REMOVED: None PROCEDURES PERFORMED: 1. Sonosite guided venous access as noted below and images stored in PACS. 2. Comprehensive EP study and catheter ablation for persistent atrial fibrillation through the pulmonary vein isolation technique. This includes right atrial recording and pacing, His bundle recording and right ventricular recording and pacing. 3. Intracardiac EP 3D mapping. 4. Intracardiac echocardiogram 5. Left atrial and coronary sinus recording and pacing to assess ablation results. 6. Left heart pressure measurements and LV pacing and recording. 7. Induction of arrhythmia and testing of ablation results using intravenous adenosine infusion. 8. Fluroscopy. PROCEDURE NOTE: On the day of presentation, she was noted to be in sinus rhythm following which the ESSENCE was deferred. Risks, benefits and alternatives of the procedure were discussed with the patient and family who agreed to proceed. Please refer to my consult note for details of the discussion and of indications. The patient was prepped and draped following which four venous access was procured on right side as noted below. Ultrasound was used to determine the course and patency of the femoral veins on both sides and they were noted to be patent and the image stored in PACS. After infiltration with 1% lidocaine, 4 venous sheaths were placed in the right as noted below and a radial arterial line was placed by anesthesia. RFV: 8Fx3, [employer] ThermoCool SF Bi-Directional over SL1/ Vizigo, SL1: Octoray,, CS Catheter (EZ Steer). 9F: ICE catheter. Following venous access, heparin bolus was given followed by continuous intravenous drip to target ACT around 350. An intracardiac ultrasound catheter was inserted into the right atrium to examine the right atrial anatomy, atrial septum, pulmonary vein anatomy and to monitor for pericardial effusion and guide transseptal access. The LA and RA was only moderately dilated. At baseline, there was no pericardial effusion and no LORE clot but noted a very prominent Coumadin ridge. Esophagus was mapped using the CARTOSOUND 3D mapping software and noted to be towards the middle. Transeptal access was procured with ICE guidance using a SL-1 sheath and Reji needle. LV pacing was performed and no left sided retrograde accessory pathway was seen. Following this, patient would go into afib. Octoray catheter was advanced and the multipolar mapping performed of the LA creating a geometry as well as bipolar voltage assessment was made. After FAM geometry was performed, a 2nd transseptal was performed with an SL1 sheath using a Reji needle. Following transseptal, the SL1 sheath was removed and Vizigo sheath was advanced over which the ablation catheter ST-SF thermocol ablation catheter was advanced. Ablation was then performed. A cooling tube was advanced to the stomach and position confirmed with fluoroscopy and cooling initiated to 4C. Ablation was performed using 40 ochoa for 10-12s in the anterior LA and 5-8seconds in the posterior wall and roof area. After completion of the left sided WACA, no signals were noted in the LSPV or LIPV andentrance block was noted. After this, I proceeded to perform ablation of the right-sided vein. Following right WACA, the veins were isolated. I ensured that on the anterior aspect of right WACA and in hannah area, phrenic capture was ruled out before any ablation was performed. DCCV was performed but she would go into Afib easily. This happened on 2 occassions. At this time, I administered Amiodarone 150mg IV x 1 dose. I proceeded to perform CTI ablation. Using ICE, the His and IVC junctions were marked with 3D CARTO mapping software. ICE revealed a small subeustachian pouch. Vizigo sheath was aparna to the right side. Ablation was performed on the CTI line starting at the tricuspid valve aspect. 40W was utilized and I extended the ablation from the TV to the IVC aspect. DCCV was then performed. Following the completion of the line, the patient did have bidirectional block. Bidirectional block was noted with medial to lateral pacing with a timing of 168ms and from lateral to medial was 172ms. After this, perivenous pacing was performed around each individual vein, ensuring there was isolation. Adenosine was given a 12 mg dose and AV block and hypotension was noted. No reconnection was seen. Differential pacing confirmed bidirectional block. At this point, the decision was made to stop the ablation. ICE imaging ensured there was no pericardial effusion and phrenic nerve capture was documented on fluoroscopy. Thereafter, the brandi (more content not included)... 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 Anesthesia Post Evaluation Patient location during evaluation: PACU Patient participation: complete - patient participated Level of consciousness: awake and alert Pain score: 1 Pain management: adequate Multimodal analgesia pain management approach Airway patency: patent Two or more strategies used to mitigate risk of obstructive sleep apnea Cardiovascular status: hemodynamically stable Respiratory status: room air and nonlabored ventilation Hydration status: euvolemic Patient is hemodynamically stable and is able to be discharged from PACU per anesthesia protocol. There were no known notable events for this encounter. [facility] 09-22-2024 Note Arterial Line: Date/Time: 09/22/2024 8:12 AM An arterial line was placed Procedure performed using surface landmarks.in the pre-op for the following indication(s): continuous blood pressure monitoring and blood sampling needed. A 20 G (size), 2 inch (length), Angiocath (type) catheter was placed, Seldinger technique used , into the Left radial artery, secured by Biodisc/Biopatch, tape and Tegaderm. Events: patient tolerated procedure well with no complications. Staffing Performed: resident/JUICE MIXER/MONA Anesthesiologist: Ananth Melissa MD Resident/JUICE MIXER: Virgilio Cardona MD Performed by: Virgilio Cardona MD Authorized by: Ananth Melissa MD [facility] 09-22-2024 Note Airway Date/Time: 09/22/2024 8:52 AM Urgency: elective Airway not difficult General Information and Staff Patient location during procedure: OR Anesthesiologist: Ananth Melissa MD Resident/JUICE MIXER/CAA: Virgilio Cardona MD Performed: resident/JUICE MIXER/CAA Learner assisted: MAGALI Castillo assisted Indications and Patient Condition Indications for airway management: anesthesia Spontaneous Ventilation: absent Sedation level: deep Preoxygenated: yes Patient position: sniffing Mask difficulty assessment: 1 - vent by mask Planned trial extubation Final Airway Details Final airway type: endotracheal airway Successful airway: ETT Successful intubation technique: video laryngoscopy Facilitating devices/methods: intubating stylet Endotracheal tube insertion site: oral Blade: Vilchis Blade size: #3 ETT size (mm): 7.0 Placement verified by: capnometry Measured from: teeth ETT to teeth (cm): 21 Number of attempts at approach: 1 Number of other approaches attempted: 0 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 Pt.'s daughter was present for the preoperative interview. Anesthesia Plan ASA 3 general The patient is not a current smoker. Patient was previously instructed to abstain from smoking on day of procedure. Patient did not smoke on day of procedure. intravenous induction Anesthetic plan and risks discussed with patient. Use of blood products discussed with patient who consented to blood products. Plan discussed with resident and medical student. Additional Equipment Requests [facility] 09-21-2024 Note [place] [facility] Consult [place] [facility] [place] [facility] Reason for visit: atrial fibrillation 09/21/14 Patient here for H&P prior to afib ablation scheduled tomorrow. Denies chest pain, lightheadedness/syncope, and bleeding on Eliquis. 07/27/24 Patient here for follow up event monitor. She denies chest pain, SOB, palpitations, lightheadedness/syncope, and bleeding on Eliquis. Pt doing well. Eventmonitor placed evealed AF epsiode of 07/02/24. She is tolerating DOAC well HPI: Mary Kay Dugan is a 73 y.o. year old with past medical history of .HLD, palpitations. New patient here to establish care for follow up [facility] for new afib/flutter. She was already on carvedilol, but was also started on Eliquis. Denies bleeding issues so far. Hasn't had palpitations for awhile. Denies chest pain and SOB. Patient was recently seen at [facility] on 05/25/24 for complaints of racing heart beats. She states she took her 's pulse ox and put it on her finger and could see her heart rate bouncing up and down. She was found to be in newly found atrial fibrillation at the hospital. They discharged her home with a 7 day holter monitor which she wore. She felt one episode on the holter monitor but has felt well since. Holter monitor findings: 06/16- revealed episode of atrial fibrillation. Patient was symptomatic, states she felt her heart racing and beating funny PMH: Past Medical History: Diagnosis Date Abnormal ECG Afib (CMS/HCC) Arrhythmia Asthma Atrial fibrillation (CMS/HCC) Hyperlipidemia Hypertension Osteoporosis PSH: Past Surgical History: Procedure Laterality Date ANKLE FRACTURE SURGERY Right HYSTERECTOMY TONSILLECTOMY SH: Social Determinants of Health Tobacco Use: Low Risk (08/02/2024) Received from [facility] Patient History Smoking Tobacco Use: Never Smokeless Tobacco Use: Never Passive Exposure: Not on file Alcohol Use: Not At Risk (10/27/2023) Received from [facility] AUDIT-C Frequency of Alcohol Consumption: 2-4 times a month Average Number of Drinks: 1 or 2 Frequency of Binge Drinking: Never Financial Resource Strain: Low Risk (10/27/2023) Received from [facility] Overall Financial Resource Strain (CARDIA) Difficulty of Paying Living Expenses: Not very hard Food Insecurity: No Food Insecurity (10/27/2023) Received from [facility] Hunger Vital Sign Worried About Running Out of Food in the Last Year: Never true Ran Out of Food in the Last Year: Never true Transportation Needs: No Transportation Needs (10/27/2023) Received from [facility] PRAPARE - Transportation Lack of Transportation (Medical): No Lack of Transportation (Non-Medical): No Physical Activity: Insufficiently Active (10/27/2023) Received from [facility] Exercise Vital Sign Days of Exercise per Week: 3 days Minutes of Exercise per Session: 20 min Stress: Stress Concern Present (10/27/2023) Received from [facility] [place] [facility] [employer] [facility] - Occupational Stress Questionnaire Feeling of Stress : To some extent Social Connections: Moderately Integrated (10/27/2023) Received from [facility] Social Connection and Isolation Panel [NHANES] Frequency of Communication with Friends and Family: More than three times a week Frequency of Social Gatherings with Friends and Family: More than three times a week Attends [employer] Services: More than 4 times per year Active Member of Clubs or Organizations: No Attends Club or Organization Meetings: Never Marital Status: Intimate Partner Violence: Not on file Depression: Not at risk (06/30/2024) Received from [facility] PHQ-2 Patient Health Questionnaire-2 Score: 0 Housing Stability: Low Risk (10/27/2023) Received from [facility] Housing Stability Vital Sign Unable to Pay for Housing in the Last Year: No Number of Places Lived in the Last Year: 1 Unstable Housing in the Last Year: No Utilities: Not on file Health Literacy: Not on file Allergies: No Known Allergies Weight: 66.7kg Visit Vitals BP 127/67 (BP Location: Left arm, Patient Position: Sitting) Pulse 65 Ht 1.626 m (5' 4 ) Wt 66.7 kg (147 lb) SpO2 95% BMI 25.23 kg/m??? Smoking Status Never BSA 1.74 m??? Meds: Current Outpatient Medications on File Prior to Visit Medication Sig Dispense Refill carvedilol (Coreg) 12.5 mg tablet Take 12.5 mg by mouth with breakfast and with evening meal. cholecalciferol (Vitamin D-3) 50 MCG (2000 UT) tablet denosumab (Prolia) 60 mg/mL syringe Inject 60 mg under the skin. Eliquis 5 mg tablet Take 5 mg by mouth twice a day. No current facility-administered medications on file prior to visit. Review of Systems Cardiovascular: Positive for palpitations. Respiratory: Positive for shortness of breath (with episodes of palpitations). All other systems reviewed and are negative. Physical Exam: Constitutional General Ap (more content not included)... [facility] 08-02-2024 History of Present illness Narrative Associated Problem(s): Elevated BP without diagnosis of hypertension [...] taking them as prescribed. DASH diet handouts Associated Problem(s): Unspecified atrial fibrillation (CMS/HCC) Planning an ablation Avoid Caffeine Watch for bleeding Images from the original note were not included. Subjective Patient ID: Mary Kay Dugan is a 73 y.o. female who presents for Hypertension. Will be having surgery with cardio as soon as they call her Pt has no concerns Hypertension This is a chronic problem. The current episode started more than 1 year ago. The problem is unchanged. The problem is uncontrolled. Associated symptoms include headaches. Pertinent negatives include no chest pain or shortness of breath. There are no compliance problems. Current Outpatient Medications on File Prior to Visit Medication Sig Dispense Refill clotrimazole-betamethasone (Lotrisone) cream APPLY TWICE DAILY TO AFFECTED AREA FOR 5 DAYS. MAY REPEAT IN 2 WEEKS AND NEEDED AFTER. Ascorbic Acid (VITAMIN C PO) Take by mouth. [id number] D (CALCIUM 1200+D3 PO) carvedilol (Coreg) 12.5 MG tablet Take 12.5 mg by mouth in the morning and 12.5 mg in the evening. Take with meals. cholecalciferol (D3) 50 MCG (1999 UT) tablet denosumab (Prolia) 60 MG/ML solution prefilled syringe [...] times a day as needed for dizziness Edmonson-3 Fatty Acids (Fish Oil) 1200 MG capsule delayed-release Turmeric (QC Tumeric Complex) 500 MG capsule vitamin E 180 MG (400 UNIT) capsule zinc gluconate 50 MG tablet Take 50 mg by mouth in the morning. No current facility-administered medications on file prior to visit. I have reviewed and reconciled the history and medication list with the patient today. Allergies Allergen Reactions Food Anaphylaxis Social History Tobacco Use Smoking status: Never Smokeless tobacco: Never Vaping Use Vaping status: Never Used Substance Use Topics Alcohol use: Yes Alcohol/week: 6.0 standard drinks of alcohol Types: 3 Glasses of wine, 3 Cans of beer per week Comment: socially Drug use: Never No family history on file. Past Medical History: Diagnosis Date Allergic Allergic rhinitis Hypertension ([facility]) 10/11/2023 Osteoporosis ([facility]) 08/14/2015 Past Surgical History: Procedure Laterality Date ADENOIDECTOMY Childhood ANKLE SURGERY Right 2016 FRACTURE SURGERY 08/15/2015 HYSTERECTOMY TUBAL LIGATION 05/01/1978 Visit Vitals BP 114/78 Pulse 89 Ht 5' 4 Wt 144 lb SpO2 96% BMI 24.72 kg/m Smoking Status Never BSA 1.72 m Review of Systems Constitutional: Negative for fever. Respiratory: Negative for shortness of breath. Cardiovascular: Negative for chest pain. Neurological: Positive for headaches. Auras in twinkling but no migraine Objective Physical Exam Constitutional: General: She is not in acute distress. Appearance: Normal appearance. HENT: Head: Normocephalic. Neck: Vascular: No carotid bruit. Cardiovascular: Rate and Rhythm: Normal rate and regular rhythm. Pulmonary: Effort: Pulmonary effort is normal. No respiratory distress. Breath sounds: Normal breath sounds. Musculoskeletal: Right lower leg: No edema. Left lower leg: No edema. Neurological: General: No focal deficit present. Mental [...] taking them as prescribed. DASH diet handouts Unspecified atrial fibrillation (CMS/HCC) Planning an ablation Avoid Caffeine Watch for bleeding Follow up in about 6 months (around 01/30/2025). documented in this encounter [facility] 07-27-2024 [place] [place] [facility] [place] [facility] Reason for visit: atrial fibrillation 07/27/24 Patient here for follow up event monitor. She denies chest pain, SOB, palpitations, lightheadedness/syncope, and bleeding on Eliquis. Pt doing well. Eventmonitor placed evealed AF epsiode of 07/02/24. She is tolerating DOAC well HPI: Mary Kay Dugan is a 73 y.o. year old with past medical history of .HLD, palpitations. New patient here to establish care for follow up [facility] for new afib/flutter. She was already on carvedilol, but was also started on Eliquis. Denies bleeding issues so far. Hasn't had palpitations for awhile. Denies chest pain and SOB. Patient was recently seen at [facility] on 05/25/24 for complaints of racing heart beats. She states she took her 's pulse ox and put it on her finger and could see her heart rate bouncing up and down. She was found to be in newly found atrial fibrillation at the hospital. They discharged her home with a 7 day holter monitor which she wore. She felt one episode on the holter monitor but has felt well since. Holter monitor findings: 06/16- revealed episode of atrial fibrillation. Patient was symptomatic, states she felt her heart racing and beating funny PMH: Past Medical History: Diagnosis Date Abnormal ECG Arrhythmia Atrial fibrillation (CMS/HCC) Hypertension PSH: Past Surgical History: Procedure Laterality Date ANKLE FRACTURE SURGERY HYSTERECTOMY SH: Social Determinants of Health Tobacco Use: Low Risk (06/30/2024) Received from [facility] Patient History Smoking Tobacco Use: Never Smokeless Tobacco Use: Never Passive Exposure: Not on file Alcohol Use: Not At Risk (10/27/2023) Received from [facility] AUDIT-C Frequency of Alcohol Consumption: 2-4 times a month Average Number of Drinks: 1 or 2 Frequency of Binge Drinking: Never Financial Resource Strain: Low Risk (10/27/2023) Received from [facility] Overall Financial Resource Strain (CARDIA) Difficulty of Paying Living Expenses: Not very hard Food Insecurity: No Food Insecurity (10/27/2023) Received from [facility] Hunger Vital Sign Worried About Running Out of Food in the Last Year: Never true Ran Out of Food in the Last Year: Never true Transportation Needs: No Transportation Needs (10/27/2023) Received from [facility] PRAPARE - Transportation Lack of Transportation (Medical): No Lack of Transportation (Non-Medical): No Physical Activity: Insufficiently Active (10/27/2023) Received from [facility] Exercise Vital Sign Days of Exercise per Week: 3 days Minutes of Exercise per Session: 20 min Stress: Stress Concern Present (10/27/2023) Received from [facility] [place] [employer] - Occupational Stress Questionnaire Feeling of Stress : To some extent Social Connections: Moderately Integrated (10/27/2023) Received from [facility] Social Connection and Isolation Panel [NHANES] Frequency of Communication with Friends and Family: More than three times a week Frequency of Social Gatherings with Friends and Family: More than three times a week Attends [employer] Services: More than 4 times per year Active Member of Clubs or Organizations: No Attends Club or Organization Meetings: Never Marital Status: Intimate Partner Violence: Not on file Depression: Not at risk (06/30/2024) Received from [facility] PHQ-2 Patient Health Questionnaire-2 Score: 0 Housing Stability: Low Risk (10/27/2023) Received from [facility] Housing Stability Vital Sign Unable to Pay for Housing in the Last Year: No Number of Places Lived in the Last Year: 1 Unstable Housing in the Last Year: No Utilities: Not on file Health Literacy: Not on file Allergies: No Known Allergies Weight: 65.3kg Visit Vitals BP 137/83 (BP Location: Left arm, Patient Position: Sitting) Pulse 60 Ht 1.626 m (5' 4 ) Wt 65.3 kg (144 lb) SpO2 96% BMI 24.72 kg/m??? Smoking Status Never BSA 1.72 m??? Meds: Current Outpatient Medications on File Prior to Visit Medication Sig Dispense Refill carvedilol (Coreg) 12.5 mg tablet Take 12.5 mg by mouth with breakfast and with evening meal. cholecalciferol (Vitamin D-3) 50 MCG (2000 UT) tablet denosumab (Prolia) 60 mg/mL syringe Inject 60 mg under the skin. Eliquis 5 mg tablet Take 5 mg by mouth twice a day. No current facility-administered medications on file prior to visit. Review of Systems All other systems reviewed and are negative. Physical Exam: Constitutional General Appearance: well-nourished, well-developed, appears stated age Level of Distress: comfortable Psychiatric Mental Status: alert, normal affect Orientation: oriented to time, place, and person Insight: good judgement Eyes Lids and Conjunctivae: non-injected, no xanthelasma ENMT Ears: no lesions on external ear Nose: no lesions on exte (more content not included)... [facility] 06-30-2024 History of Present illness Narrative Images from the original note were not included. Subjective Patient ID: Mary Kay Dugan is a 73 y.o. female who presents for No chief complaint on file.. HPI Medicare Wellness Over the past 2 weeks, how often have you been bothered by any of the following problems? Little interest or pleasure in doing things: Not at all Feeling down, depressed, or hopeless: Not at all Patient Health Questionnaire-2 Score: 0 Over the past 2 weeks, how often have you been bothered by any of the following problems? Trouble falling or staying asleep, or sleeping too much: Several days Feeling tired or having little energy: Not at all Poor appetite or overeating: Not at all Feeling bad about yourself - or that you are a failure or have let yourself or your family down: Not at all Trouble concentrating on things, such as reading the newspaper or watching television: Not at all Moving or speaking so slowly that other people could have noticed? Or the opposite - being so fidgety or restless that you have been moving around a lot more than usual.: Not at all Thoughts that you would be better off or hurting yourself in some way: Not at all Patient Health Questionnaire-9 Score: 1 Swan Fall Risk History of Falling, Immediate or Within 3 Months: No Health Risk Assessment Form Do you need help eating, bathing, using the toilet, dressing, or getting around your home?: No Can you prepare your own meals?: Yes Can you do your own housework without help?: Yes Can you shop for groceries or clothes without help?: Yes Do you exercise for about 20 minutes 3 or more days a week?: Yes How confident are you that you can control and manage most of your health problems?: Very confident Can you mange your money, credit cards and accounts, pay bills and taxes?: Yes Cognitive Screening Three Word Registration: Banana, [place], Chair Clock Drawing: Normal Clock - 2 Three Word Recall: All 3 words correct - 3 Total Score (0-5 Points): 5 Pain Assessment Pain Score: 0 - No pain Advance Care Planning Do you have a living will?: Yes Do you have a medical power of automatic steel tie adjuster?: No Current Outpatient Medications on File Prior to Visit Medication Sig Dispense Refill Ascorbic Acid (VITAMIN C PO) Take by mouth. Vsyappz-Vohmfkipc-Miglobn D (CALCIUM 1200+D3 PO) carvedilol (Coreg) 12.5 MG tablet Take 12.5 mg by mouth in the morning and 12.5 mg in the evening. Take with meals. cholecalciferol (D3) 50 MCG (2000 UT) tablet denosumab (Prolia) 60 MG/ML solution prefilled syringe [...] times a day as needed for dizziness Edmonson-3 Fatty Acids (Fish Oil) 1200 MG capsule delayed-release Turmeric (QC Tumeric Complex) 500 MG capsule vitamin E 180 MG (400 UNIT) capsule zinc gluconate 50 MG tablet Take 50 mg by mouth in the morning. No current facility-administered medications on file prior to visit. I have reviewed and reconciled the history and medication list with the patient today. Allergies Allergen Reactions Food Anaphylaxis Social History Tobacco Use Smoking status: Never Smokeless tobacco: Never Vaping Use Vaping status: Never Used Substance Use Topics Alcohol use: Yes Alcohol/week: 6.0 standard drinks of alcohol Types: 3 Glasses of wine, 3 Cans of beer per week Comment: socially Drug use: Never No family history on file. Past Medical History: Diagnosis Date Allergic Allergic rhinitis Hypertension ([facility]) 10/11/2023 Osteoporosis ([facility]) 08/14/2015 Past Surgical History: Procedure Laterality Date ADENOIDECTOMY Childhood ANKLE SURGERY Right 2016 FRACTURE SURGERY 08/15/2015 HYSTERECTOMY TUBAL LIGATION 05/01/1978 Visit Vitals BP 115/85 Pulse 71 Resp 17 Wt 147 lb SpO2 99% BMI 25.23 kg/m Smoking Status Never BSA 1.74 m Review of Systems Constitutional: Negative for chills, fatigue and fever. HENT: Negative for congestion, ear pain, rhinorrhea and sore throat. Eyes: Negative for pain, discharge and visual disturbance. Respiratory: Negative for cough, shortness of breath and wheezing. Cardiovascular: Negative for chest pain, palpitations and leg swelling. Gastrointestinal: Negative for abdominal pain, constipation, diarrhea, nausea and vomiting. Genitourinary: Negative for difficulty urinating, dysuria and frequency. Musculoskeletal: Negative for arthralgias and back pain. Skin: Negative for rash. Neurological: Negative for dizziness and numbness. Psychiatric/Behavioral: Negative for sleep disturbance. The patient is not nervous/anxious. Objective Physical Exam Constitutional: General: She is not in acute distress. Appearance: Normal appearance. She is well-developed. HENT: Head: Normocephalic and atraumatic. Right Ear: Tympanic membrane and ear canal normal. Left Ear: Tympanic membrane and ear canal normal. Nose: Nose normal. Mouth/Throat: Mouth: Mucous membranes are moist. Pharynx: No posterior oropharyngeal erythema. Eyes: General: No scleral icterus. Extraocular Movements: Extraocular movements intact. Conjunctiva/sclera: Conjunctivae normal. Pupils: Pupils are equal, round, and reactive to light. Neck: Vascular: No carotid bruit. Cardiovascular: Rate and Rhythm: Normal rate and regular rhythm. Heart sounds: Normal heart sounds. No murmur heard. Pulmonary: Effort: Pulmonary effort is normal. No respiratory distress. Breath sounds: Normal breath sounds. No wheezing, rhonchi or rales. Abdominal: General: Bowel sounds are normal. There is no distension. Palpations: Abdomen is soft. Tenderness: There is no abdominal tenderness. There is no guarding. Musculoskeletal: General: No swelling or deformity. Normal range of motion. Cervical back: Normal range of motion and neck supple. No tenderness. Skin: General: Skin is warm and dry. Capillary Refill: Capillary refill takes less than 2 seconds. Findings: No rash. Neurological: General: No focal deficit present. Mental Status: She is alert and oriented to person, place, and time. Cranial Nerves: No cranial nerve deficit. Sensory: No sensory deficit. Motor: No weakness. Gait: Gait normal. Deep Tendon Reflexes: Reflexes normal. Psychiatric: Mood and Affect: Mood normal. Behavior: Behavior normal. Thought Content: Thought content normal. Judgment: Judgment normal. Assessment & Plan 1. Medicare annual wellness visit, initial (Primary) Reviewed all relevant preventative screenings with the patient in detail. Medicare Wellness form completed and will be scanned into patient's chart. All needed testing was ordered. Will continue with yearly Medicare Wellness exams. 2. ACP (advance care planning) Patient willing to discuss ACP. Pt has Living Will in place. 3. Paroxysmal atrial fibrillation (CMS/HCC) The patient is seeing a emergency medical dispatcher for this condition, treatment is deferred to that specialist. Correspondence from that specialist and any available testing were reviewed during today's visit. 4. Elevated BP without diagnosis of hypertension Stable at this time. Will continue to monitor. She is on Coreg. 5. Palpitations Sees Dr. Savage Lutz, Cardiology on 07/27/2023, she has a cardiac cath technologist in place currently. No palpitations at time of visit. 6. Hypercholesteremia (CMS/HCC) This is a chronic medical condition that is stable since last assessment. No changes in treatment are suggested at this time. Will continue to monitor with routine labs. 7. Age-related osteoporosis without current pathological fracture (CMS/HCC) DEXA results will be requested from [facility]. Will continue to monitor routinely. Continue Calcium and Vitamin D supplement. 8. Osteopenia of multiple sites DEXA results will be requested from [facility]. Will continue to monitor routinely. Continue Calcium and Vitamin D supplement. Follow up for Appointment As Scheduled. Lay BERNAL, PA-C documented in this encounter [facility] 06-22-2024 [place] [facility] [place] [facility] Reason for visit: atrial fibrillation HPI: Mary Kay Dugan is a 73 y.o. year old with past medical history of .HLD, palpitations. New patient here to establish care for follow up [facility] for new afib/flutter. She was already on carvedilol, but was also started on Eliquis. Denies bleeding issues so far. Hasn't had palpitations for awhile. Denies chest pain and SOB. Patient was recently seen at [facility] on 05/25/24 for complaints of racing heart beats. She states she took her 's pulse ox and put it on her finger and could see her heart rate bouncing up and down. She was found to be in newly found atrial fibrillation at the hospital. They discharged her home with a 7 day holter monitor which she wore. She felt one episode on the holter monitor but has felt well since. Holter monitor findings: 06/16- revealed episode of atrial fibrillation. Patient was symptomatic, states she felt her heart racing and beating funny PMH: Past Medical History: Diagnosis Date Abnormal ECG Arrhythmia Atrial fibrillation (CMS/HCC) Hypertension PSH: Past Surgical History: Procedure Laterality Date ANKLE FRACTURE SURGERY HYSTERECTOMY SH: Social Determinants of Health Tobacco Use: Low Risk (06/22/2024) Patient History Smoking Tobacco Use: Never Smokeless Tobacco Use: Never Passive Exposure: Not on file Alcohol Use: Not At Risk (10/27/2023) Received from [facility] AUDIT-C Frequency of Alcohol Consumption: 2-4 times a month Average Number of Drinks: 1 or 2 Frequency of Binge Drinking: Never Financial Resource Strain: Low Risk (10/27/2023) Received from [facility] Overall Financial Resource Strain (CARDIA) Difficulty of Paying Living Expenses: Not very hard Food Insecurity: No Food Insecurity (10/27/2023) Received from [facility] Hunger Vital Sign Worried About Running Out of Food in the Last Year: Never true Ran Out of Food in the Last Year: Never true Transportation Needs: No Transportation Needs (10/27/2023) Received from [facility] PRAPARE - Transportation Lack of Transportation (Medical): No Lack of Transportation (Non-Medical): No Physical Activity: Insufficiently Active (10/27/2023) Received from [facility] Exercise Vital Sign Days of Exercise per Week: 3 days Minutes of Exercise per Session: 20 min Stress: Stress Concern Present (10/27/2023) Received from [facility] [place] of Occupational Health - Occupational Stress Questionnaire Feeling of Stress : To some extent Social Connections: Moderately Integrated (10/27/2023) Received from [facility] Social Connection and Isolation Panel [NHANES] Frequency of Communication with Friends and Family: More than three times a week Frequency of Social Gatherings with Friends and Family: More than three times a week Attends [employer] Services: More than 4 times per year Active Member of Clubs or Organizations: No Attends Club or Organization Meetings: Never Marital Status: Intimate Partner Violence: Not on file Depression: Not on file Housing Stability: Low Risk (10/27/2023) Received from [facility] Housing Stability Vital Sign Unable to Pay for Housing in the Last Year: No Number of Places Lived in the Last Year: 1 Unstable Housing in the Last Year: No Utilities: Not on file Health Literacy: Not on file Allergies: No Known Allergies Weight: 65.3kg Visit Vitals BP 128/78 (BP Location: Left arm, Patient Position: Sitting) Pulse 63 Ht 1.626 m (5' 4 ) Wt 65.3 kg (144 lb) SpO2 97% BMI 24.72 kg/m??? Smoking Status Never BSA 1.72 m??? Meds: Current Outpatient Medications on File Prior to Visit Medication Sig Dispense Refill carvedilol (Coreg) 12.5 mg tablet Take 12.5 mg by mouth with breakfast and with evening meal. cholecalciferol (Vitamin D-3) 50 MCG (1999 UT) tablet denosumab (Prolia) 60 mg/mL syringe Inject 60 mg under the skin. Eliquis 5 mg tablet Take 5 mg by mouth twice a day. No current facility-administered medications on file prior to visit. Review of Systems All other systems reviewed and are negative. Physical Exam: Constitutional General Appearance: well-nourished, well-developed, appears stated age Level of Distress: comfortable Psychiatric Mental Status: alert, normal affect Orientation: oriented to time, place, and person Insight: good judgement Eyes Lids and Conjunctivae: non-injected, no xanthelasma ENMT Ears: no lesions on external ear Nose: no lesions on external nose Oropharynx: no cyanosis, no pallor Neck Neck: supple, trachea midline Carotid Arteries: bilateral normal upstroke, no bruits Jugular Veins: normal jugular venous pressure Thyroid: not enlarged Lungs Respiratory Effort: unlabored Chest Exam: normal curvature, no thoracic deformity Auscultation: clear, no wheezing, no rales, no rhonchi Cardio (more content not included)... [facility] 06-02-2024 History of Present illness Narrative Images from the original note were not included. Subjective Patient ID: Mary Kay Dugan is a 73 y.o. female who presents for TBH 05/25/24 and ER 05/28/24. Mary Kay is present today for follow up TB from 05/25/24 - 05/26/24. Dx. Afib Rx'd Eliquis and increased her Carvedilol to 12.5 mg BID. Then went back to ER on 05/28/24 Dx. Cellulitis and Dermatitis Rx'd Cephalexin 500 mg TID for 10 days. The cellulitis is in her left leg and she feels she got stung by a bee and that is what caused the cellulitis, she was using bendryl and hydrocortisone cream on it before she went to the ER. Her leg is improving on the ATB. US in the ER was negative for blood clot. Just finished wearing the holter monitor and sent it back today. Current Outpatient Medications on File Prior to Visit Medication Sig Dispense Refill carvedilol (Coreg) 12.5 MG tablet Take 12.5 mg by mouth in the morning and 12.5 mg in the evening. Take with meals. cephalexin (Keflex) 500 MG capsule Take 500 mg by mouth in the morning and 500 mg in the evening and 500 mg before bedtime. Eliquis 5 MG tablet Take 5 mg by mouth in the morning and 5 mg before bedtime. Ascorbic Acid (VITAMIN C PO) Take by mouth. Berzbvi-Rmzobyjof-Ivgxhwf D (CALCIUM 1200+D3 PO) cholecalciferol (D3) 50 MCG (2000 UT) tablet magnesium 500 MG tablet meclizine (Antivert) 25 MG tablet Take 25 mg by mouth 3 (three) times a day as needed for dizziness Edmonson-3 Fatty Acids (Fish Oil) 1200 MG capsule delayed-release Turmeric (QC Tumeric Complex) 500 MG capsule vitamin E 180 MG (400 UNIT) capsule zinc gluconate 50 MG tablet Take 50 mg by mouth in the morning. [DISCONTINUED] aspirin 81 MG EC tablet Take 81 mg by mouth in the morning. [DISCONTINUED] carvedilol (Coreg) 6.25 MG tablet Take 1 tablet (6.25 mg) by mouth in the morning and 1 tablet (6.25 mg) in the evening. Take with meals. 60 tablet 11 [DISCONTINUED] Cyanocobalamin (VITAMIN B-12 PO) Take by mouth. [DISCONTINUED] denosumab (Prolia) 60 MG/ML solution prefilled syringe No current facility-administered medications on file prior to visit. I have reviewed and reconciled the history and medication list with the patient today. Allergies Allergen Reactions Food Anaphylaxis Social History Tobacco Use Smoking status: Never Smokeless tobacco: Never Vaping Use Vaping status: Never Used Substance Use Topics Alcohol use: Yes Alcohol/week: 6.0 standard drinks of alcohol Types: 3 Glasses of wine, 3 Cans of beer per week Comment: socially Drug use: Never No family history on file. Past Medical History: Diagnosis Date Allergic Allergic rhinitis Hypertension ([facility]) 10/11/2023 Osteoporosis ([facility]) 08/14/2015 Past Surgical History: Procedure Laterality Date ADENOIDECTOMY Childhood ANKLE SURGERY Right 2016 FRACTURE SURGERY 08/15/2015 HYSTERECTOMY TUBAL LIGATION 05/01/1978 Visit Vitals BP 120/68 Pulse 92 Resp 16 Ht 5' 4 Wt 145 lb 6.4 oz SpO2 96% BMI 24.96 kg/m Smoking Status Never BSA 1.73 m Review of Systems Constitutional: Negative for chills, fatigue and fever. Respiratory: Negative for cough, shortness of breath and wheezing. Cardiovascular: Negative for chest pain, palpitations and leg swelling. Gastrointestinal: Negative for abdominal pain, constipation, diarrhea, nausea and vomiting. Skin: Positive for rash. Objective Physical Exam Constitutional: General: She is not in acute distress. Appearance: Normal appearance. She is well-developed. HENT: Head: Normocephalic and atraumatic. Eyes: General: No scleral icterus. Conjunctiva/sclera: Conjunctivae normal. Cardiovascular: Rate and Rhythm: Normal rate and regular rhythm. Heart sounds: Normal heart sounds. No murmur heard. Pulmonary: Effort: Pulmonary effort is normal. No respiratory distress. Breath sounds: Normal breath sounds. No wheezing, rhonchi or rales. Skin: General: Skin is warm and dry. Findings: Erythema present. Comments: Very faint remaining erythema in the are noted in drawing, well within the border drawn by skin marker in the ER. No swelling Neurological: General: No focal deficit present. Mental Status: She is alert and oriented to person, place, and time. Psychiatric: Mood and Affect: Mood normal. Behavior: Behavior normal. Assessment/Plan Diagnoses and all orders for this visit: Paroxysmal atrial fibrillation (CMS/HCC) RRR on Coreg at this time. Continue Eliquis and Coreg as prescribed. Patient is scheduled with Dr. Savage Lutz, Cardiology on 06/22/2024. Encouraged pt to keep this appt as scheduled. Cellulitis of left leg Resolving with the Keflex. Finish antibiotic as prescribed. Contact office with any concerns. Age-related osteoporosis without current pathological fracture (CMS/HCC) - denosumab (Prolia) 60 MG/ML solution prefilled syringe; Inject 1 mL (60 mg) under the skin See administration instructions 60 mg injection twice a year. She is continuing with Prolia twice a year. Continue routine DEXA scans. Continue calcium and Vitamin D supplements. Encouraged pt to continue to swim twice a week. The patient was seen today in follow up of recent hospital stay. All available hospital records were reviewed and discussed with the patient. Hospital discharge meds were reviewed. Follow up in about 4 weeks (around 06/30/2024) for Medicare Wellness Visit. documented in this encounter [facility] 03-03-2024 Note Patient Education Ma terials Name: Mary Kay Dugan Current Date: 03/03/2024 11:29:52 [place] : 1950 The following sheet(s) are the Patient Education Leaflets for [facility] Breast Health: Breast Self-Awareness What is breast self-awareness? Breast self-awareness is knowing how your breasts normally look and feel. Your breasts change as you go through different stages of your life. So it?s important to learn what is normal for your breasts. Knowing about your breasts helps you spot any changes in them right away. Tell your healthcare provider about any changes. Why is breast self-awareness important? Many experts now say that women should focus on breast self-awareness instead of doing a breast self-exam (BSE). These experts include the [place] [employer] and the [place] [employer]. Some experts even advise not teaching women to do a BSE. That?s because research hasn?t shown that doing BSEs helps. Breast self-awareness is different than a BSE. It isn?t about following a certain method and schedule. It?s about knowing what's normal for your breasts. That way you can spot even small changes right away. If you see any changes, tell your healthcare provider. Changes to look for Call your healthcare provider if you find any changes in your breasts that worry you. These changes may be: ?A lump ?Nipple discharge other than breastmilk, especially if it's bloody ?Swelling ?A change in size or shape ?Skin changes, such as redness, thickening, or dimpling of the skin ?Swollen lymph nodes in the armpit ?Nipple problems, such as pain or redness If you find a lump Call your healthcare provider if you find lumpiness in one breast. Also call if you feel something different in the tissue or feel a definite lump. Sometimes lumpiness may be due to menstrual changes. But there may be reason for concern. Your healthcare provider may want to see you right away if you have: ?Nipple discharge that is bloody ?Skin changes on your breast, such as dimpling or puckering It?s OK to be upset if you find a lump. Be sure to call your healthcare provider right away. Remember that most breast lumps are benign. This means they are not cancer. ? 2777-4782 [employer]. All rights reserved. This information is not intended as a substitute for professional medical care. Always follow your healthcare professional's instructions. Urology Pelvic Floor Muscle Exercises Pelvic floor muscle exercises are done to help strengthen the muscles in your pelvic floor. They are easy to learn and simple to do. And if you do them right, no one can tell you?re doing them. You can do them almost anywhere. Your healthcare provider, nurse, or physical therapist can answer any questions you have and help you get started. These are also called Kegel exercises. A weak pelvic floor The pelvic floor muscles may weaken. This can happen because of any of these: ?Aging ? ?Vaginal childbirth ?Injury ?Surgery ?Chronic cough ?Lack of exercise If the pelvic floor is weak, your bladder and other pelvic organs may sag out of place. The urethra may open too easily. This can allow urine to leak out. Pelvic floor muscle exercises can help you strengthen your pelvic floor muscles. They can better support your pelvic organs and control your urine flow. How to do pelvic floor muscle exercises Try each of the pelvic floor muscle exercises below. When you?re doing them, try not to move your leg, buttock, or stomach muscles: ?Squeeze as if you are stopping your urine stream. But do it when you?re not urinating. ?Tighten your rectum as if trying not to pass gas. Squeeze your anus, but don?t move your buttocks. Tip: Place 1 or 2 fingers in the vagina. Squeeze your finger with your vagina. This will help you to learn which muscles to tighten. Try to hold each pelvic floor muscle exercise for a slow count to 5. You probably won?t be able to hold it for that long at first. But keep practicing. It will get easier as your pelvic floor gets stronger. At some point, your healthcare provider may advise you to use special weights. You place these in your vagina before you do these exercises. This can help make the exercises even more effective. Talk to your healthcare provider if you have trouble doing the exercises. Helpful tips Here are some tips to follow: ?Do pelvic floor muscle exercises as often as you can. The more you do them, the faster you?ll feel the results. ?Pick an activity you do often as a reminder. For instance, do your these exercises every time you sit down. ?Tighten your pelvic floor before you sneeze, get up from a chair, cough, laugh, or lift. This can help prevent urine, gas, or stool leakage. ? [id number] [employer]. All rights reserved. This information is not intended as a substitute for professional medic (more content not included)... [facility] Evaluation note Diagnosis Age-related osteoporosis without current pathological fracture (CMS/HCC)- Primary Hypercholesteremia (CMS/HCC) Pure hypercholesterolemia Elevated BP without diagnosis of hypertension Palpitations Elevated BP without diagnosis of hypertension- Primary Hypercholesteremia (CMS/HCC) Pure hypercholesterolemia Paroxysmal atrial fibrillation (CMS/HCC)- Primary Atrial fibrillation Cellulitis of left leg Age-related osteoporosis without current pathological fracture (CMS/HCC) documented in this encounter [facility] HealthcareEvaluation note* Diagnosis Age-related osteoporosis without current pathological fracture (CMS/HCC)- Primary Hypercholesteremia (CMS/HCC) Pure hypercholesterolemia Elevated BP without diagnosis of hypertension Palpitations Elevated BP without diagnosis of hypertension- Primary Hypercholesteremia (CMS/HCC) Pure hypercholesterolemia Medicare annual wellness visit, initial- Primary ACP (advance care planning) Other specified counseling Paroxysmal atrial fibrillation (CMS/HCC) Atrial fibrillation Elevated BP without diagnosis of hypertension Palpitations Hypercholesteremia (CMS/HCC) Pure hypercholesterolemia Age-related osteoporosis without current pathological fracture (CMS/HCC) Osteopenia of multiple sites documented in this encounter [facility] HealthcareEvaluation note* Diagnosis Age-related osteoporosis without current pathological fracture (CMS/HCC)- Primary Hypercholesteremia (CMS/HCC) Pure hypercholesterolemia Elevated BP without diagnosis of hypertension Palpitations Elevated BP without diagnosis of hypertension- Primary Hypercholesteremia (CMS/HCC) Pure hypercholesterolemia Elevated BP without diagnosis of hypertension- Primary Paroxysmal atrial fibrillation (CMS/HCC) Atrial fibrillation Unspecified atrial fibrillation (CMS/HCC) documented in this encounter [facility] HealthcareEvaluation note* Diagnosis Age-related osteoporosis without current pathological fracture (CMS/HCC)- Primary Hypercholesteremia (CMS/HCC) Pure hypercholesterolemia Elevated BP without diagnosis of hypertension Palpitations Elevated BP without diagnosis of hypertension- Primary Hypercholesteremia (CMS/HCC) Pure hypercholesterolemia Elevated BP without diagnosis of hypertension- Primary Paroxysmal atrial fibrillation (CMS/HCC) Atrial fibrillation Unspecified atrial fibrillation (CMS/HCC) Atrial fibrillation, unspecified type (CMS/HCC)- Primary Elevated BP without diagnosis of hypertension History of cardiac radiofrequency ablation documented in this encounter [facility] HealthcareEvaluation note* Diagnosis Age-related osteoporosis without current pathological fracture- Primary Hypercholesteremia Pure hypercholesterolemia Elevated BP without diagnosis of hypertension Palpitations Elevated BP without diagnosis of hypertension- Primary Hypercholesteremia Pure hypercholesterolemia Elevated BP without diagnosis of hypertension- Primary Paroxysmal atrial fibrillation (HCC) Atrial fibrillation Unspecified atrial fibrillation (HCC) Elevated BP without diagnosis of hypertension- Primary Paroxysmal atrial fibrillation (HCC) Atrial fibrillation documented in this encounter [facility] Summary Purpose Family History No Family History Records FoundNo Family History Records FoundNo Family History Records FoundNo Family History Records Found Advance Directives No Advanced Directives Records FoundNo Advanced Directives Records FoundNo Advanced Directives Records FoundNo Advanced Directives Records Found Additional Source Comments INFORMATION SOURCE (unrecogn ized section and content) DATE CREATED AUTHOR 12/25/2020 [facility] DATE CREATED AUTHOR AUTHOR'S ORGANIZ ATION 12/28/2024 [facility] DATE CREATED AUTHOR AUTHOR'S ORGANIZ ATION 02/09/[address] 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 Relationship Specialty Start Date End Date Sammie Carbajal MD [address] [facility] [address] [place] [address] PCP - General Family Medicine 06/02/24 [employer] 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 Relationship Specialty Start Date End Date Sammie Carbajal MD [address] [facility] [address] [place] [address] PCP - General Family Medicine 06/02/24 [employer]et [employer] 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 Relationship Specialty Start Date End Date Sammie Carbajal MD [address] [facility] [address] [place] [address] PCP - General Family Medicine 06/02/24 [employer]et [employer] 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 Relationship Specialty Start Date End Date Sammie Carbajal MD [address] [facility] [address] [place] [address] PCP - General Family Medicine 06/02/24 Sammie Carbajal MD [address] [place] [address] [place] [address] PCP - ACO Reach 08/20/24 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 Hammer 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 Relationship Specialty Start Date End Date Sammie Carbajal MD [address] [place] [address] [place] [address] PCP - General Family Medicine 06/02/24 Sammie Carbajal MD [address] [place] [address] [place] [address] PCP - ACO Reach 08/20/24 [employer] 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 Relationship Specialty Start Date End Date Sammie Carbajal MD [address] [facility] [address] [place] [address] PCP - General Family Medicine 06/02/24 Sammie Carbajal MD [address] [facility] [address] [place] [address] PCP - ACO Reach 08/20/24 [employer] 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 Relationship Specialty Start Date End Date Sammie Carbajal MD [address] [facility] [address] [place] [address] PCP - General Family Medicine 06/02/24 Sammie Carbajal MD [address] [facility] [address] [place] [address] PCP - ACO Reach 08/20/24 Reason for Visit (unrecogniz ed section and content) Reason Comments Hypertension FOR RECORDS PERTAINING TO PATIENTS WHO ARE OR HAVE BEEN ENROLLED IN A CHEMICAL DEPENDENCY/SUBSTANCEABUSE PROGRAM, SOME INFORMATION MAY BE OMITTED. This clinical summary was aggregated from multiple sources. Caution should be exercised in using it in the provision of clinical care. This summary normalizes information from multiple sources, and as a consequence, information in this document may materially change the coding, format and clinical context of patient data. In addition, data may be omitted in some cases. CLINICAL DECISIONS SHOULD BE BASED ON THE PRIMARY CLINICAL RECORDS. [facility] [employer] [facility]. provides no warranty or guarantee of the accuracy or completeness of information in this document.
--- NOTE | 2025-02-23 12:54 | XR_ITS ---
The [place] [id number] Patient Name: ZE LLOYD MRN: [id number] date: 1950 Sex: F Assigned Patient Location: ER Current Patient Location: ER Accession/Order Number: [id number] Exam Date: 02/23/2025 13:59 Report Date: 02/23/2025 14:29 At the request of: ANDREA JAUREGUI Procedure: XR ribs RT min 3V w CXR1V PA CHEST WITH RIGHT RIBS: CLINICAL HISTORY: fall rib pain COMPARISON: None FINDINGS: Unremarkable cardiomediastinal. Lungs clear. No effusion or pneumothorax. No displaced right-sided rib fracture. Moderate degenerative changes right shoulder incidentally noted. XR/XR ribs RT min 3V w CXR1V IMPRESSION: NEGATIVE ACUTE PLEURAL-PARENCHYMAL DISEASE OR DISPLACED RIB FRACTURE. Impression dictated by: Darren Lynn M.D. 02/23/2025 2:29 PM Dictation Location: [place] [address] Electronically authenticated by: [id number] Y Date: 02/23/2025 14:29
--- NOTE | 2025-02-23 12:54 | CT_ITS ---
The [address] [address] Patient Name: ZE LLOYD MRN: [id number] date: 1950 Sex: F Assigned Patient Location: ER Current Patient Location: ER Accession/Order Number: [id number] Exam Date: 02/23/2025 13:57 Report Date: 02/23/2025 13:59 At the request of: ANDREA JAUREGUI Procedure: CT head/brain wo con CT BRAIN WITHOUT CONTRAST: CLINICAL HISTORY: anticoagulated fall COMPARISON: None TECHNIQUE: Contiguous axial unenhanced images were obtained through the brain. This CT exam was performed using one or more following dose reduction techniques: Automated exposure control, adjustment of the mA and/or kV according to patient size, or use of iterative reconstruction technique. FINDINGS: There is no evidence of midline shift, intra or extra-axial fluid collection, hemorrhage or CT evidence of acute large vascular distribution stroke. There are intracranial vascular calcifications identified. Visualized intraorbital contents appear unremarkable. Visualized paranasal sinuses are clear. The surrounding soft tissues are normal. CT/CT head/brain wo con IMPRESSION: NO ACUTE INTRACRANIAL ABNORMALITY. Impression dictated by: Darren Lynn M.D. 02/23/2025 1:59 PM Dictation Location: [place] [address] Electronically authenticated by: [id number] Y Date: 02/23/2025 13:59
--- NOTE | 2025-02-23 14:03 | ED.FALL1 ---
HPI HPI - Fall General Chief Complaint: Fall Stated Complaint: FALL Time Seen by Provider: 02/23/25 12:43 Source: patient Mode of arrival: walk-in History of Present Illness HPI Narrative: A 70-year-old female on Eliquis for anticoagulation presents to the emergency department after falling approximately 3 feet from her porch, landing on her right side. She says she got tripped up when she was washing the porch no dizziness, lightheadedness, or syncopal feeling prior to fall. From history given, this is a mechanical fall. She did not lost consciousness or have a syncopal event. She reports significant tenderness over the right lateral ribs but denies difficulty taking deep breaths. She denies abdominal pain, nausea, vomiting, chest pain, or shortness of breath. She has a superficial abrasion to the left knee with minimal discomfort and denies hip or pelvic pain. She has no back or vertebral pain. She does not believe she struck her head during the fall and denies loss of consciousness. She has no skull tenderness, hemotympanum, or visual changes. Pupils are equal and reactive. No treatment was administered prior to arrival. She is alert and oriented. Related Data Home Medications ?Medication ?Instructions ?Recorded ?Confirmed denosumab 60 mg/mL subcutaneous 60 mg subcut .twice a year 05/25/24 02/23/25 syringe (Prolia) Previous Rx's ?Medication ?Instructions ?Recorded apixaban 5 mg tablet (Eliquis) 5 mg PO BID #60 tabs 05/26/24 carvedilol 12.5 mg tablet (Coreg) 12.5 mg PO BID #60 tabs 05/26/24 Allergies Allergy/AdvReac Type Severity Reaction Status Date / Time No Known Drug Allergies Allergy Verified 02/23/25 12:37 Opioid HPI Opioid Management Most Recent Pain and Opioid Data: Last Pain Scale 6 05/28/24, 13:28 Last ORT Total Score 0 05/25/24, 22:51 Last ORT Risk Category Low Risk 05/25/24, 22:51 PFSH PFS Medical History (Updated 02/23/25 @ 14:55 by SHANIA VELEZ) Atrial fibrillation ?I48.91 - Unspecified atrial fibrillation (ICD-10) Atrial flutter ?I48.92 - Unspecified atrial flutter (ICD-10) Tachycardia ?R00.0 - Tachycardia, unspecified (ICD-10) Osteoporosis ?M81.0 - Age-related osteoporosis without current pathological fracture (ICD-10) Hypertension ?I10 - Essential (primary) hypertension (ICD-10) Surgical History (Updated 05/25/24 @ 23:29 by Laina Jara) H/O abdominal hysterectomy ?Z90.710 - Acquired absence of both cervix and uterus (ICD-10) History of tonsillectomy ?Z90.89 - Acquired absence of other organs (ICD-10) Family History (Updated 05/25/24 @ 23:08 by Laina Jara) Mother Family history of hypertension Grandmother Family history of hypertension Family history of stroke Grandfather Family history of stroke Social History (Updated 05/25/24 @ 23:09 by Laina Jara) Within the past year, how often did you have a drink containing alcohol: monthly or less Smoking status: Never smoker Non-prescribed substance use: denies use Previous occupational history: retired Highest level of school completed/degree received: Master's degree Are you now , , , , never or living with a partner: In a typical week, how many times do you talk on the telephone with family, friends, or neighbors: 3 or more times per week How often do you get together with friends or relatives: 3 or more times per week How often do you attend confucianist or gnosticism services: 4 or more times per year Little interest or pleasure in doing things: not at all Feeling down, depressed, or hopeless: not at all Feel stressed/tense/nervous/anxious/difficulty sleeping: not at all Life stressors: recent of family or friend Do you think of yourself as: straight/heterosexual Gender Identity: female Exam Constitutional Vital Signs, click to edit/add: Last Vital Signs Temp 97.9 F 02/23/25 12:37 Pulse 69 02/23/25 12:37 Resp 16 02/23/25 12:37 BP 136/67 02/23/25 12:37 Pulse Ox 98 02/23/25 12:37 O2 Del Method Room Air 02/23/25 12:37 Course Vital Signs Vital signs: Vital Signs Temperature 97.9 F 02/23/25 12:37 Pulse Rate 69 02/23/25 12:37 Respiratory Rate 16 02/23/25 12:37 Blood Pressure 136/67 02/23/25 12:37 Pulse Oximetry 98 02/23/25 12:37 Oxygen Delivery Method Room Air 02/23/25 12:37 Temperature 97.9 F 02/23/25 12:37 Pulse Rate 69 02/23/25 12:37 Respiratory Rate 16 02/23/25 12:37 Blood Pressure 136/67 02/23/25 12:37 Pulse Oximetry 98 02/23/25 12:37 Oxygen Delivery Method Room Air 02/23/25 12:37 MDM - Fall MDM Narrative Medical decision making narrative: Patient is a 70-year-old female on Eliquis for atrial fibrillation, presenting after a 3-foot fall when she tripped while washing her porch. She denies loss of consciousness, syncope, dizziness, or head strike. Exam notable for right-sided rib tenderness without crepitus, deformity, or respiratory distress. She has a superficial abrasion to the left knee with minimal discomfort and denies hip or pelvic pain. She has no back or vertebral pain. She does not believe she struck her head during the fall and denies loss of consciousness. She has no skull tenderness, hemotympanum, or visual changes. Pupils are equal and reactive. No treatment was administered prior to arrival. She is alert and oriented. No focal neuro deficiet. CT head obtained due to anticoagulation was negative for acute intracranial abnormality. Chest and rib X-rays were normal with no evidence of fracture, pneumothorax, or pulmonary contusion. No abdominal pain or neurological deficits noted. Symptoms are consistent with rib contusion. Plan includes symptomatic management, wound care for the left knee abrasion, and discharge with strict return precautions for any new or worsening chest pain, shortness of breath, or neurological symptoms, given anticoagulation-related bleeding risk. Medical Records Attestation: I reviewed the patient's medical records. Imaging Data CT scan - head: Attestation: I have reviewed the pertinent imaging results. Radiologist's impression: ITS Impressions Head CT 02/23/25 12:54 IMPRESSION: NO ACUTE INTRACRANIAL ABNORMALITY. Impression dictated by: Darren Lynn M.D. 02/23/2025 1:59 PM Dictation Location: [place] [address] Electronically authenticated by: [id number] Y Date: 02/23/2025 13:59 Ribs X-Ray 02/23/25 12:54 IMPRESSION: NEGATIVE ACUTE PLEURAL-PARENCHYMAL DISEASE OR DISPLACED RIB FRACTURE. Impression dictated by: Darren Lynn M.D. 02/23/2025 2:29 PM Dictation Location: [place] [address] Electronically authenticated by: [id number] Y Date: 02/23/2025 14:29 Discharge Plan Discharge Chief Complaint: Fall Clinical Impression: Contusion of rib on right side, Fall, Abrasion of knee, left, Anticoagulant long-term use Patient Disposition: Home, Self-Care Time of Disposition Decision: 14:30 Condition: Good Prescriptions / Home Meds: No Action Prolia 60 mg/mL syringe 60 mg subcut .twice a year Eliquis 5 mg tablet 5 mg PO BID Qty: 60 11RF carvedilol [Coreg] 12.5 mg tablet 12.5 mg PO BID Qty: 60 11RF Rx Instructions: must administer with a meal/food Print Language: Italian Instructions: Abrasion (ED), Rib Contusion (ED) Additional Instructions: You were evaluated in the emergency department today after your fall. Your CT scan of the head showed no signs of bleeding, and your chest and rib X-rays did not show any fractures or lung injury. Your symptoms are most consistent with a rib contusion. Because you are taking Eliquis, it is important to watch for signs of delayed bleeding. Return to the ER immediately if you develop worsening chest pain, shortness of breath, coughing up blood, severe headache, vomiting, confusion, weakness, vision changes, or abdominal pain. For discomfort, you may use acetaminophen as directed; avoid NSAIDs. Apply ice to sore areas for 15?20 minutes at a time during the first 48 hours, then switch to gentle heat if preferred. Perform deep breathing exercises several times a day to prevent lung complications. Keep the abrasion on your knee clean and dry, and apply a thin layer of antibiotic ointment with a fresh bandage daily. Follow up with your primary care provider within the next week. Referrals: SAMMIE CARBAJAL [Primary Care Provider, Family Practice] - 1 week Discharge Date/Time: 02/23/25 15:08
== END 2025-02-23 15:08 | disposition home or self-care (01) ==
PROVIDERS: Emergency Provider Emergency Medicine; PCP Family Medicine
DX: S20.211A Contusion of right front wall of thorax, initial encounter (principal); W13.8XXA Fall from, out of or through other building or structure, initial encounter; S80.212A Abrasion, left knee, initial encounter; Z79.01 Long term (current) use of anticoagulants
CPT/HCPCS: 70450; 71101; 99284